=== PATIENT | female | born 1950 | race Caucasian/White ===

== ENCOUNTER → 2017-03-26 | Outpatient (CLI) | payer MEDICARE ==
[~2017-03-26] MED LIST: AMLODIPINE BESY10 MG PO; FOLIC ACID1 MG PO; LEVOXYL50 MCG PO; MAGNESIUM OXID400 MG PO; MIRTAZAPINE7.5 MG PO; NEURONTIN300 MG PO; POTASSIUM99 M1 PO; PRILOSEC20 MG PO; PROZAC20 MG PO; SIMVASTATIN20 MG PO; SULFASALAZINE500 MG; SYMBICORT 16010.2 GM INH; TEMAZEPAM15 MG PO; TOPROL XL25 MG PO
--- NOTE | 2017-03-26 19:06 | Diagnostic Imaging Report ---
PROCEDURE: SOFT TISSUE HEAD/NECK US COMPARISON: None. INDICATIONS:Localized Swelling And/Or Lump in the left supraclavicular region TECHNIQUE: Transverse and longitudinal hanson-scale sonographic images of the supraclavicular regions were obtained and supplemented with color doppler. FINDINGS: There is prominence of the musculature in the left supraclavicular region, when compared to a similar area on the right, however, no masses, free fluid or fluid collections are identified. Overlying subcutaneous tissues and skin are unremarkable. No subcutaneous edema. CONCLUSION: 1. Prominence of the musculature in the left supraclavicular region. Compared to the right, however, no discrete masses, free fluid or fluid collections are noted. No overlying edema. Hugo Serrano M.D. Dictated by: Hugo Serrano M.D. on 03/26/2017 at 19:15 Electronically approved by: Hugo Serrano M.D. on 03/26/2017 at 19:15
== END ==
LOC: RAD 14:38
PROVIDERS: ATTEND Family Medicine
DX: I82.612 Acute embolism and thrombosis of superficial veins of left upper extremity (principal); R22.1 Localized swelling, mass and lump, neck
CPT/HCPCS: 76536; 93971

== ENCOUNTER 2019-02-16 09:41 | Inpatient (IN) | payer MEDICARE ==
[~2019-02-16] VITALS: Ht 170.2 cm; Wt 99.8 kg
[2019-02-16] MEDS ORDERED: SODIUM CHLORIDE 0.9% 1000ML 1,000 ML IV STA (10:34)
--- NOTE | 2019-02-16 10:34 | NUR ---
DR. KEBEDE SPOKE WITH DR. LYN NURSE REGARDING CULTURES AND NEED FOR ANTIBIOTICS
[2019-02-16] MEDS ORDERED: MEROPENEM 1GM 100 ML IV ONE (10:45)
[2019-02-16 12:14] LABS: BASOPHILS % 0.3 % (0.0-1.0); EOSINOPHILS # (AUTO) 0.1 (0.0-0.4); EOSINOPHILS % 1.8 % (0.0-6.0); HEMOGLOBIN 13.7 g/dL (12.0-16.0); LYMPHOCYTES # (AUTO) 1.5 (1.0-3.2); MEAN CORPUSCULAR HEMOGLOBIN 29.2 pg (28-32); MEAN CORPUSCULAR HGB CONC 31.9 g/dL (31-35); MEAN CORPUSCULAR VOLUME 91.7 fL (81-99); MONOCYTES # (AUTO) 0.5 (0.2-0.8); MONOCYTES % 7.4 % (4.4-11.3); NEUTROPHILS % 69.1 % (38.7-80.0); PLATELET COUNT 304 x10e3/uL (140-360); RED BLOOD COUNT 4.69 x10e6/uL (3.6-5.1); RED CELL DISTRIBUTION WIDTH 13.2 % (11.7-14.4)
[2019-02-16] MEDS: SODIUM CHLORIDE 0.9% 1000ML 1,000 ML IV SCH ×2 (12:15→18:45)
[2019-02-16] MEDS: MEROPENEM 1GM 100 ML IV SCH ×2 (12:20→23:00)
--- NOTE | 2019-02-16 12:28 | NUR ---
consent for PICC signed and placed into chart
[2019-02-16 12:31] LABS: ALBUMIN 3.5 g/dL (3.5-5.0); ALBUMIN/GLOBULIN RATIO 1.1 (0.8-2.0); ANION GAP 13.4 mmol/L (8-16); CALCIUM 9.7 mg/dL (8.4-10.2); CREATININE, SERUM 1.29 mg/dL (0.57-1.11); POTASSIUM 4.4 mmol/L (3.5-5.1)
[2019-02-16 12:36] LABS: CLARITY,URINE CLEAR (CLEAR); COLOR,URINE YELLOW (YELLOW)
[2019-02-16 12:37] LABS: LEUKOCYTE ESTERASE ,URINE MODERATE (NEGATIVE); NITRITE,URINE NEGATIVE (NEGATIVE)
[2019-02-16 12:38] LABS: KETONES,URINE TRACE (NEGATIVE); PROTEIN,URINE DIPSTICK TRACE (NEGATIVE); URINE UROBILINOGEN 0.2 mg/dL (0.2 - 1)
[2019-02-16 12:39] LABS: BILIRUBIN,URINE SMALL (NEGATIVE)
[2019-02-16 12:41] LABS: BACTERIA,URINE MANY /HPF
[2019-02-16 12:44] LABS: WBC,URINE (MAN) >50 /HPF (0-5)
[2019-02-16 12:47] LABS: EPITHELIAL CELLS,URINE MANY /LPF; RBC,URINE 0-5 /HPF (0-5)
[2019-02-16 12:48] LABS: TRANSITIONAL EPI CELLS,URINE MANY
--- NOTE | 2019-02-16 16:42 | NUR ---
staff here to start picc
--- NOTE | 2019-02-16 17:00 | NUR ---
IR Nurse and inserted PICC line at right upper arm.
[2019-02-16] MEDS ORDERED: CRESTOR10 MG (17:59)
[2019-02-16] MEDS ORDERED: PANTOPRAZOLE SO40 MG (17:59)
[2019-02-16] MEDS ORDERED: GABAPENTIN300 MG PO (17:59)
[2019-02-16] MEDS ORDERED: METOPROLOL SUCC50 MG PO (17:59)
[2019-02-16] MEDS ORDERED: POTASSIUM CHLO10 ME1 PO (17:59)
[2019-02-16] MEDS ORDERED: PROZAC20 MG (17:59)
[2019-02-16] MEDS ORDERED: CLOPIDOGREL75 MG (17:59)
[2019-02-16] MEDS ORDERED: MAGNESIUM OXID400 MG PO (17:59)
[2019-02-16] MEDS ORDERED: LEVOTHYROXINE150 MCG (17:59)
--- NOTE | 2019-02-16 18:08 | NUR ---
ADMITTED PT TO ROOM 292, REPORTS GIVEN TO IVONNE SOLITARIO
[2019-02-16 18:36] VITALS: BP 159/74
--- NOTE | 2019-02-16 18:37 | NUR ---
Paged Dr. Peralta in regards to restarting home medications for pt. Awaiting call back.
--- NOTE | 2019-02-16 19:55 | Diagnostic Imaging Report ---
EXAMINATION: CHEST XRAY LINE PLACEMENT INDICATION: ^s/p PICC line placement ^Y COMPARISON: None FINDINGS: TUBES and LINES: Right upper extremity PICC with distal tip projected on the SVC proximal to the cavoatrial junction. LUNGS: Lungs are well inflated. Lungs are clear. There is no evidence of pneumonia or pulmonary edema. PLEURA: No pleural effusion or pneumothorax. HEART AND MEDIASTINUM: Cardiac size is mildly enlarged. There are atherosclerotic calcifications within the aorta. BONES AND SOFT TISSUES: No acute osseous lesion. Soft tissues are unremarkable. UPPER ABDOMEN: No free air under the diaphragm. IMPRESSION: Right upper extremity PICC with distal tip projected on the SVC proximal to the cavoatrial junction. Signed by: Dr. Domonique Abraham M.D. on 02/16/2019 7:52 PM
[2019-02-16 20:00] VITALS: BP 132/75
--- NOTE | 2019-02-16 20:08 | NUR ---
Received change of shift report from AM nurse. Walking rounds completed.
--- NOTE | 2019-02-16 22:51 | Consultation ---
DATE OF CONSULTATION: 02/16/2019 REASON FOR CONSULTATION: UTI with ESBL. HISTORY OF PRESENT ILLNESS: This patient who is a 69-year-old white female, well known to me from before. The patient for the last year or so has been having recurrent UTI, urgency, frequency, suprapubic discomfort. She have seen her physician. She took several courses of oral antibiotic over the last year, but recently a urine culture was done, which showed she had ESBL. The patient having urgency frequency, dysuria, suprapubic pain going to both flank. The patient denies any fever or chills. The patient was in the emergency room to be admitted and started on IV antibiotic. She said culture were done as an outpatient showed that she had resistant bacteria, but I do not see it in the chart present time. PAST MEDICAL HISTORY: Significant for hypercholesteremia, stroke, arthritis, rheumatoid arthritis, breast augmentation, and Staph aureus infection. PAST SURGICAL HISTORY: Breast augmentation. ALLERGIES: NKA. SOCIAL HISTORY: There is no smoking, drug abuse, or alcohol abuse. FAMILY HISTORY: Hypertension. REVIEW OF SYSTEMS: At the present time; HEENT: There is no headache, visual changes, hearing changes. GI: There is no nausea, no vomiting, no diarrhea. CARDIAC: There is no arrhythmia. NEURO: No seizure activity. SKIN: There are no other rashes. LABORATORY DATA: Reviewed. Her white count 7.25, hemoglobin 13.7, creatinine 1.29, sodium 139. Liver enzyme within normal limits. The patient is currently on meropenem 500 q.12. PHYSICAL EXAMINATION: GENERAL: She is currently alert, oriented, does not seem to be in acute distress. VITAL SIGNS: Stable, currently afebrile. HEENT: She is not icteric. NECK: Supple. No JVD. No lymphadenopathy. No thyromegaly. CHEST: Clear bilateral. HEART: S1, S2. No S3, S4, or murmur. ABDOMEN: Soft. Bowel sounds present. No tenderness. EXTREMITIES: No edema. SKIN: There is no rash. JOINT: There is no erythema or edema. LABORATORY DATA: Reviewed. Chart reviewed. Records available from [facility]. IMPRESSION: Urinary tract infection with multidrug resistant. Agree with meropenem 500 IV q.8, obtain PICC line. We will see about IV antibiotic. Further recommendations to follow. MD SANDHYA Soares/CLEM /[id number]
[2019-02-17] VITALS (9 sets, daily range): BP systolic 130–162; BP diastolic 68–81
[2019-02-17] MEDS: MORPHINE SULFATE 2 MG/ML SYR 1ML IV PRN ×3 (00:18→22:11)
[2019-02-17] MEDS: ONDANSETRON HCL INJ 2MG/ML 2ML 2 MG/ML VIAL IV PRN ×2 (00:19→09:50)
[2019-02-17] MEDS: SODIUM CHLORIDE 0.9% 1000ML 1,000 ML IV SCH ×3 (05:06→21:19)
[2019-02-17] MEDS: LEVOTHYROXINE SODIUM 50 MCG TAB PO SCH (05:07)
[2019-02-17 06:06] LABS: BASOPHILS % 0.3 % (0.0-1.0); EOSINOPHILS # (AUTO) 0.1 (0.0-0.4); EOSINOPHILS % 2.1 % (0.0-6.0); HEMATOCRIT 36.8 % (34.2-44.1); HEMOGLOBIN 11.8 g/dL (12.0-16.0); LYMPHOCYTES # (AUTO) 1.5 (1.0-3.2); LYMPHOCYTES % 25.1 % (18.0-39.1); MEAN CORPUSCULAR HEMOGLOBIN 29.8 pg (28-32); MEAN CORPUSCULAR HGB CONC 32.1 g/dL (31-35); MEAN CORPUSCULAR VOLUME 92.9 fL (81-99); MONOCYTES # (AUTO) 0.6 (0.2-0.8); MONOCYTES % 9.6 % (4.4-11.3); NEUTROPHILS # (AUTO) 3.7 (2.1-6.9); NEUTROPHILS % 62.7 % (38.7-80.0); PLATELET COUNT 250 x10e3/uL (140-360); RED BLOOD COUNT 3.96 x10e6/uL (3.6-5.1); RED CELL DISTRIBUTION WIDTH 13.2 % (11.7-14.4)
[2019-02-17 06:25] LABS: ALBUMIN 3.1 g/dL (3.5-5.0); ALBUMIN/GLOBULIN RATIO 1.2 (0.8-2.0); ANION GAP 11.3 mmol/L (8-16); CALCIUM 8.9 mg/dL (8.4-10.2); CREATININE, SERUM 0.99 mg/dL (0.57-1.11); POTASSIUM 4.3 mmol/L (3.5-5.1)
--- NOTE | 2019-02-17 07:21 | NUR ---
PATIENT IN BED RESTING WITH NO S/S OF DISTRESS. IV FLUID INFUSING ORDERED. BED IN LOWER POSITION, CALL LIGHT AT REACH.
[2019-02-17] MEDS: FLUOXETINE HCL 20 MG CAP PO SCH ×2 (09:00→17:23)
[2019-02-17] MEDS ORDERED: METOPROLOL SUCCINATE 25 MG TAB XL PO SCH (09:00)
[2019-02-17] MEDS ORDERED: BUDESONIDE/FORMOTEROL 160/4.5MCG INHALER INH SCH (09:00)
[2019-02-17] MEDS: PANTOPRAZOLE SOD 40 MG TABEC PO SCH (09:25)
[2019-02-17] MEDS: METOPROLOL SUCCINATE 50 MG TAB XL PO SCH (09:25)
[2019-02-17] MEDS: FOLIC ACID 1 MG TAB PO SCH (09:25)
[2019-02-17] MEDS: GABAPENTIN 300 MG CAP PO SCH ×2 (09:25→17:23)
[2019-02-17] MEDS: MAGNESIUM OXIDE 400 MG TAB PO SCH (09:25)
[2019-02-17] MEDS: CLOPIDOGREL BISULFATE 75 MG TAB PO SCH (09:25)
[2019-02-17] MEDS: POTASSIUM CHLORIDE 10MEQ EA PO SCH (09:26)
--- NOTE | 2019-02-17 10:50 | NUR ---
PATIENT AMBULATED TO THE RESTROOM AND BACK TO BED. CALL LIGHT AT REACH.
[2019-02-17] MEDS: BUDESONIDE/FORMOTEROL 160/4.5MCG INHALER INH SCH ×2 (11:38→19:48)
[2019-02-17] MEDS: MEROPENEM 1GM 100 ML IV SCH ×3 (11:45→21:20)
--- NOTE | 2019-02-17 14:06 | History and Physical ---
The patient came in with dysuria for the last 3 to 4 months. HISTORY OF PRESENTING ILLNESS: The patient is a 69-year-old lady with a history of 4 to 5 rounds of antibiotics orally, came in with dysuria. The patient's microbiology was found to have ESBL. The patient admitted for IV antibiotics, PICC line placement, and also possible discharge with home antibiotics. PAST MEDICAL HISTORY: History of stroke, history of hyperlipidemia, history of hypertension, history of depression, history of asthma, history of reflux esophagitis, history of insomnia, and history of hypertension. MEDICATIONS: She takes at home include; amlodipine 10 mg, budesonide, Symbicort 160 twice a day, fluoxetine 40 mg daily, folic acid 1 mg daily, gabapentin 300 mg 3 times a day, levothyroxine 200 mcg daily, metoprolol 50 mg ER once a day, omeprazole 20 mg daily, potassium chloride 40 mEq daily, rosuvastatin 10 mg daily, and temazepam 15 mg daily. ALLERGIES: NO DRUG ALLERGIES. PAST SURGICAL HISTORY: History of breast augmentation, otherwise negative. SOCIAL HISTORY: No EtOH. No IV drug abuse. FAMILY HISTORY: Noncontributory. REVIEW OF SYSTEMS: Negative for chest pain. No shortness of breath. No nausea, vomiting, or diarrhea. No constipation. No rectal bleeding. Positive for dysuria and pain in the abdomen. PHYSICAL EXAMINATION: VITAL SIGNS: Temperature is 96.1, pulse of 70, respirations of 18, blood pressure is 145/74, and pulse oximeter of 97% on room air. HEENT: Normocephalic, atraumatic. Pupils are reactive to light and accommodation. CVS: S1 and S2 normal. Regular rate and rhythm. ABDOMEN: Tender in the suprapubic area. BACK: Mild CVA tenderness present at right side. SKIN: Warm, normal. EXTREMITIES: No clubbing, no cyanosis, no edema. NEUROLOGIC: Alert and oriented x3. No cranial deficit. The patient walks with a cane, pain restricted. LABORATORY VALUES: White count is 5.82, hemoglobin of 11.8, and hematocrit of 36.8. Chemistries with sodium of 136, potassium 4.3, BUN is 29, creatinine of 1.29. IMAGING STUDIES: Shows catheter placement after a PICC line was done, was normal. ASSESSMENT: A 69-year-old female with history of stroke, history of hypertension, history of hyperlipidemia, comes with multiple episodes of urinary tract infection and treated, needs IV antibiotics. PICC line has been placed. Antibiotics have been started. The patient is on Merrem. We will discharge the patient with home health and/or treatment outpatient with Dr. Chilel's office. PLAN: Continue other CV medications and hypertensive medication. Also, acute kidney injury, the patient is better with IV hydration. Further recommendation per clinical course. We will continue to monitor the patient and possible discharge today if all things fall in line. MD MARINA Santiago/MODL /[id number]
--- NOTE | 2019-02-17 21:04 | Progress Note ---
DATE: 02/17/2019 SUBJECTIVE: Ms. Woods is doing better. There is no new complaint. There is no fever since admission. REVIEW OF SYSTEMS: HEENT: Negative. PULMONARY: Negative. CARDIAC: Negative. : Negative. Otherwise unremarkable. LABORATORY DATA: Her urine cultures are growing gram-negative rods. Her white count is 5.8, hemoglobin 11.8. Sodium 136. Creatinine of 0.99. OBJECTIVE: GENERAL: She is currently alert, oriented, does not seem to be in acute distress. VITAL SIGNS: Stable, currently afebrile. HEENT: She is not icteric. NECK: Supple. CHEST: Clear bilateral. HEART: S1, S2. No S3, S4, or murmurs. ABDOMEN: Soft. Bowel sounds present. No tenderness. No hepatosplenomegaly. EXTREMITIES: No edema. SKIN: No rash. IMPRESSION: Urinary tract infection, cystitis, doing well with meropenem, continue the same. PLAN: Three days of IV antibiotic and then discharge home. Follow up as an outpatient. MD SANDHYA Soares/CLEM /[id number]
[2019-02-17] MEDS: TEMAZEPAM 15 MG CAP PO SCH (21:19)
[2019-02-17] MEDS: AMLODIPINE BESYLATE 10 MG TAB PO SCH (21:19)
--- NOTE | 2019-02-17 21:22 | Diagnostic Imaging Report ---
EXAMINATION: CHEST SINGLE (PORTABLE) INDICATION: ^line placement COMPARISON: 02/16/2019 FINDINGS: AP view TUBES and LINES: Right PICC in place with tip projecting over inferior SVC. LUNGS: Lungs are well inflated. Mild central vascular congestion. No definite focal consolidation. PLEURA: No pleural effusion or pneumothorax. HEART AND MEDIASTINUM: The cardiomediastinal silhouette is unremarkable. BONES AND SOFT TISSUES: No acute osseous lesion. Soft tissues are unremarkable. UPPER ABDOMEN: No free air under the diaphragm. IMPRESSION: No acute thoracic abnormality. Right PICC in place with tip projecting over inferior SVC. Signed by: Dr. Андрей Garcia MD on 02/17/2019 9:18 PM
[2019-02-18] VITALS (9 sets, daily range): BP systolic 130–177; BP diastolic 70–97
[2019-02-18] MEDS: SODIUM CHLORIDE 0.9% 1000ML 1,000 ML IV SCH ×3 (02:02→18:40)
[2019-02-18] MEDS: LEVOTHYROXINE SODIUM 50 MCG TAB PO SCH (04:42)
[2019-02-18] MEDS: MORPHINE SULFATE 2 MG/ML SYR 1ML IV PRN ×2 (04:43→16:10)
[2019-02-18] MEDS: BUDESONIDE/FORMOTEROL 160/4.5MCG INHALER INH SCH ×2 (06:50→19:55)
--- NOTE | 2019-02-18 07:20 | NUR ---
MD IN TO SEE PATIENT, NO NEW ORDER RECEIVED. IN BED RESTING WITH CALL LIGHT AT REACH.
[2019-02-18] MEDS: FOLIC ACID 1 MG TAB PO SCH (08:36)
[2019-02-18] MEDS: CLOPIDOGREL BISULFATE 75 MG TAB PO SCH (08:37)
[2019-02-18] MEDS: FLUOXETINE HCL 20 MG CAP PO SCH ×2 (08:37→17:23)
[2019-02-18] MEDS: GABAPENTIN 300 MG CAP PO SCH ×2 (08:37→17:23)
[2019-02-18] MEDS: PANTOPRAZOLE SOD 40 MG TABEC PO SCH (08:37)
[2019-02-18] MEDS: MAGNESIUM OXIDE 400 MG TAB PO SCH (08:37)
[2019-02-18] MEDS: POTASSIUM CHLORIDE 10MEQ EA PO SCH (08:37)
[2019-02-18] MEDS: METOPROLOL SUCCINATE 50 MG TAB XL PO SCH (08:39)
--- NOTE | 2019-02-18 10:45 | Progress Note ---
DATE: 02/17/2019 SUBJECTIVE: This patient came in with multiple episodes of urinary tract infections with dysuria. The last culture grew ESBL. The patient has had five episodes of ESBL. The patient was sent to the hospital for IV antibiotics and for relief of symptoms of UTI. Currently, the patient had a PICC line put in yesterday, but the PICC line at the area of insertion got erythematous and tender and the PICC line was removed. Tip has been cultured and the patient is kept in the hospital for ongoing treatments. The patient at this time has peripheral line and Merrem is ongoing. The patient also has ESBL growth again and sensitive to Merrem. ID is on case. The patient will require continuum of care in lieu of infected PICC line and need of peripheral IV for IV antibiotics. OBJECTIVE: VITAL SIGNS: Temperature is 96.0, pulse is 72, respirations of 18, blood pressure is 130/87, and pulse oximetry of 96%. HEENT: Normocephalic and atraumatic. Pupils are reactive to light and accommodation. CVS: S1 and S2 normal. Regular rate and rhythm. ABDOMEN: Nontender nondistended. EXTREMITIES: Right-sided upper extremity with slight erythema and tenderness and also with warmth in the right upper extremity at the PICC line insertion site. Extremities otherwise no edema. LABORATORY VALUES: White count is 5.82, hemoglobin of 11.8, and hematocrit of 36.8. Chemistries; sodium 136, potassium 4.3, BUN of 27, and creatinine of 0.99. ASSESSMENT: Ms. Catalina Woods is a 69-year-old female with: 1. Failed outpatient treatment of ESBL x5. 2. Failed peripherally inserted central catheter line, removal of peripherally inserted central catheter line with culture of tip and also catheter area. 3. History of multiple comorbidities including history of stroke, history of hypertension, history of deep vein thrombosis, history of hyperlipidemia, history of being on anticoagulation, and asthma. PLAN: Continue with Merrem at this time with a peripheral line. Consult with Dr. Chilel on board. Continue with anticoagulation. Further recommendation per clinical course. We will continue to monitor the patient. The patient has baseline chronic kidney injury and also acute kidney injury, which has been better after repletion of fluids. MD HESHAM SantiagoJ/MODL /[id number]
--- NOTE | 2019-02-18 11:07 | NUR ---
VENOUS DOPPLER IN PROGRESS AT BED SIDE. CALL LIGHT AT REACH.
[2019-02-18] MEDS: MEROPENEM 1GM 100 ML IV SCH ×2 (11:30→23:26)
[2019-02-18] MEDS: ONDANSETRON HCL 4 MG ORAL DISINTEGRATING TAB PO PRN (16:10)
--- NOTE | 2019-02-18 16:18 | NUR ---
PATIENT C/O PAIN, MEDICATED ORDERED. WILL CLOSELY MONITOR.
--- NOTE | 2019-02-18 19:00 | NUR ---
RECEIVED PATIENT IN BEDSIDE REPORT. PATIENT RESTING IN BED AT THIS TIME. NO PAIN REPORTED. NO S&S OF DISTRESS NOTED. BED LOCKED IN LOWEST POSITION, SIDE RAILS UPX2, CALL LIGHT IN REACH.
[2019-02-18] MEDS: AMLODIPINE BESYLATE 10 MG TAB PO SCH (21:01)
[2019-02-18] MEDS: TEMAZEPAM 15 MG CAP PO SCH (21:01)
[2019-02-19] MEDS: MORPHINE SULFATE 2 MG/ML SYR 1ML IV PRN ×4 (02:58→19:44)
[2019-02-19] MEDS: SODIUM CHLORIDE 0.9% 1000ML 1,000 ML IV SCH ×3 (02:58→23:30)
[2019-02-19] MEDS: ONDANSETRON HCL 4 MG ORAL DISINTEGRATING TAB PO PRN ×4 (02:58→19:45)
[2019-02-19 04:00] VITALS: BP 154/74
[2019-02-19] MEDS: LEVOTHYROXINE SODIUM 50 MCG TAB PO SCH (06:49)
[2019-02-19] MEDS: BUDESONIDE/FORMOTEROL 160/4.5MCG INHALER INH SCH ×2 (07:30→19:00)
[2019-02-19] MEDS: PANTOPRAZOLE SOD 40 MG TABEC PO SCH (07:46)
[2019-02-19 08:00] VITALS: BP 137/81
[2019-02-19] MEDS: POTASSIUM CHLORIDE 10MEQ EA PO SCH (08:56)
[2019-02-19] MEDS: MAGNESIUM OXIDE 400 MG TAB PO SCH (08:56)
[2019-02-19] MEDS: FOLIC ACID 1 MG TAB PO SCH (08:56)
[2019-02-19] MEDS: GABAPENTIN 300 MG CAP PO SCH ×2 (08:56→17:15)
[2019-02-19] MEDS: METOPROLOL SUCCINATE 50 MG TAB XL PO SCH (08:57)
[2019-02-19] MEDS: FLUOXETINE HCL 20 MG CAP PO SCH ×2 (08:57→17:15)
[2019-02-19] MEDS: CLOPIDOGREL BISULFATE 75 MG TAB PO SCH (08:57)
--- NOTE | 2019-02-19 09:16 | Progress Note ---
DATE: 02/19/2019 SUBJECTIVE: The patient is a 69-year-old female, who came in with a multiple episodes of urinary tract infection. The patient was initially put into the hospital for just a PICC line and need of Merrem 1 g q.8 hours because she has ESBL and no p.o. antibiotics to be sensitive to it, but eventually the patient did develop complications of PICC line; tip has been cultured. The patient is still getting Merrem through peripheral line. ID consult has been done. The plan would be to give her three days of antibiotic and sent home on p.o. antibiotics and bacteriostatic drugs. The patient's microbiology did grow ESBL, Klebsiella pneumoniae, and the patient is sensitive to Merrem. OBJECTIVE: VITAL SIGNS: Temperature is 96.6, pulse of 70, respirations of 20, blood pressure is 154/74, and pulse oximetry of 97%. HEENT: Normocephalic, atraumatic. Pupils are reactive to light and accommodation. CVS: S1 and S2, regular. ABDOMEN: Nontender, nondistended. EXTREMITIES: No clubbing, no cyanosis, no edema. PICC line area has receded in erythema, tenderness, and warmth. LABORATORY VALUES: There were none done today, except for microbiology. IMAGING STUDIES: Extremity study did not show any clot. The patient's catheter tip culture is still pending. ASSESSMENT: A 69-year-old female with: 1. Failed outpatient of extended spectrum beta-lactamase x5. 2. Failed peripherally inserted catheter line with removal secondary to possible local reaction versus systemic reaction. 3. History of multiple comorbidities including stroke, history of hypertension, history of deep vein thrombosis, history of hyperlipidemia, history of chronic use of anticoagulation, and history of asthma. PLAN: 1. Continue with Merrem for two more days on the peripheral line, Dr. Chilel is on consult. 2. The patient will need ongoing therapy for at least three days, which will result in discharge tomorrow. 3. Further recommendation per clinical course. We will continue to monitor the patient. The patient will be discharged from the hospital on ID recommendation of p.o. antibiotics and bacteriostatic drugs. 4. Further recommendation per clinical course. We will continue her ongoing other medications and do laboratory values tomorrow. MD MARINA Santiago/MODL /[id number]
[2019-02-19] MEDS: MEROPENEM 1GM 100 ML IV SCH ×2 (11:25→23:00)
[2019-02-19 12:00] VITALS: BP 137/74
--- OUTSIDE RECORDS SUMMARY | 2019-02-19 13:12 | XMS REPORT ---
Author Author [facility] Address Unknown Phone Unavailable Care Team Providers Care Rod Hanger Name Role Phone LOIDA Katarzyna SOUZA Unavailable Unavailable HARJEET PRADO Unavailable Unavailable FRANCES KINSEY Unavailable Unavailable ELLIOT CHRISTENSEN Unavailable Unavailable Problems This patient has no known problems. Allergies, Adverse Reactions, Alerts This patient has no known allergies or adverse reactions. Medications This patient has no known medications. Results Test Description Test Time Test Comments Text Results Atomic Results Result Comments CHEST SINGLE (PORTABLE) 2019-02-17 21:17:00 [place] [address] Patient Name: BENITO BURNS MR #: [id number] : 1950 Age/Sex: 69/F Req #: [id number] Adm Physician: LIBYB MARISCAL MD Ordered by: LIBBY MARISCAL MD Report #: [id number] Location: [facility]/SURG3 Room/Bed: [facility] Procedure: [id number] DX/CHEST SINGLE (PORTABLE) Exam Date: Exam Time: REPORT STATUS: Signed EXAMINATION: CHEST SINGLE (PORTABLE) INDICATION: line placement COMPARISON: 02/16/2019 FINDINGS: AP view TUBES and LINES: Right PICC in place with tip projecting over inferior SVC. LUNGS: Lungs are well inflated. Mild central vascular congestion. No definite focal consolidation. PLEURA: No pleural effusion or pneumothorax. HEART AND MEDIASTINUM: The cardiomediastinal silhouette is unremarkable. BONES AND SOFT TISSUES: No acute osseous lesion. Soft tissues are unremarkable. UPPER ABDOMEN: No free air under the diaphragm. IMPRESSION: No acute thoracic abnormality. Right PICC in place with tip projecting over inferior SVC. Signed by: Dr. Андрей Brooks MD on 02/17/2019 9:18 PM Dictated By: АНДРЕЙ BROOKS MD 17 Transcribed By: CATHERINE on 02/17/192117 COPY TO: LIBBY MARISCAL MD CHEST XRAY LINE PLACEMENT 2019-02-16 19:51:00 [place] [address] Patient Name: BENITO BURNS MR #: [id number] : 1950 Age/Sex: 69/F Req #: [id number] Adm Physician: LIBBY MARISCAL MD Ordered by: CHLOE KEBEDE MD, MD Report #: [id number] Location: [facility] Room/Bed: [facility] Procedure: [id number] DX/CHEST XRAY LINE PLACEMENT Exam Date: Exam Time: REPORT STATUS: Signed EXAMINATION: CHEST XRAY LINE PLACEMENT INDICATION: s/p PICC line placement Y COMPARISON: None FINDINGS: TUBES and LINES: Right upper extremity PICC with distal tip projected on the SVC proximal to the cavoatrial junction. LUNGS: Lungs are well inflated. Lungs are clear. There is no evidence of pneumonia or pulmonary edema. PLEURA: No pleural effusion or pneumothorax. HEART AND MEDIASTINUM: Cardiac size is mildly enlarged. There are atherosclerotic calcifications within the aorta. BONES AND SOFT TISSUES: No acute osseous lesion. Soft tissues are unremarkable. UPPER ABDOMEN: No free air under the diaphragm. IMPRESSION: Right upper extremity PICC with distal tip projected on the SVC proximal to the cavoatrial junction. Signed by: Dr. Domonique Headley M.D. on 02/16/2019 7:52 PM Dictated By: BRIONNA HEADLEY MD, MD 51 Transcribed By: CATHERINE on 02/16/191951 COPY TO: CHLOE KEBEDE AF[employer] CULTURE + SMEAR 2016-11-07 19:43:00 CULTURE (BEAKER) (test wdwx=8593) No acid-fast bacilli isolated in 42 days AFB SMEAR (BEAKER) (test pkpx=299) No acid fast bacilli seen AFB CULTURE + [id number] 19:43:00* Test Item Value Reference Range Comments CULTURE (BEAKER) (test higl=4286) No acid-fast bacilli isolated in 42 days AFB SMEAR (BEAKER) (test cbni=585) No acid fast bacilli seen FUNGUS CULTURE + [id number] 08:33:00* Test Item Value Reference Range Comments CULTURE (BEAKER) (test jhtt=9633) No fungus isolated in 28 days FUNGUS SMEAR (BEAKER) (test mdqp=1691) No fungi seen FUNGUS CULTURE + [id number] 08:33:00* Test Item Value Reference Range Comments CULTURE (BEAKER) (test smvt=2711) No fungus isolated in 28 days FUNGUS SMEAR (BEAKER) (test dogn=7659) No fungi seen ANAEROBIC [id number] 12:49:00* Test Item Value Reference Range Comments CULTURE (BEAKER) (test pevy=9811) No anaerobes isolated ANAEROBIC [id number] 20:13:00* Test Item Value Reference Range Comments CULTURE (BEAKER) (test noyy=7809) No anaerobes isolated SURGICALLY OBTAINED CULTURE + GRAM [id number] 09:22:00* Test Item Value Reference Range Comments CULTURE (BEAKER) (test sbgn=0016) No growth GRAM STAIN RESULT (BEAKER) (test ecke=2627) <1+ WBCs GRAM STAIN RESULT (BEAKER) (test pnce=59548) No organisms seen SURGICALLY OBTAINED CULTURE + GRAM [id number] 09:21:00* Test Item Value Reference Range Comments CULTURE (BEAKER) (test kqll=2441) No growth GRAM STAIN RESULT (BEAKER) (test dsxu=8164) <1+ WBCs GRAM STAIN RESULT (BEAKER) (test uwop=24353) No organisms seen TISSUE [id number] 09:04:00Surgical Pathology Report Case: [id number] Authorizing Provider: Mahamed Kinsey Collected: 09/18/2016 181Lisseth Lauren MD Ordering Location: [facility] Received: 09/19/2016 0814 SERVICES Pathologist: Richmond Avitia MD Specimen: Explant HIP, RIGHT, RIGHT HIP EXPLANT, REMOVAL: - EXPLANT MATERIAL IDENTIFIED (GROSS DIAGNOSIS) [facility]/[id number] of right hipExplant The specimen is received in a fluidless container labeled with the patient's information and labeled "explant" and consists of an acetabular cup and lining measuring 4 x 4 x 2 cm and acetabular cup and acetabular and femoral bulb measuring 2 x 2 x 2 cm. The serial number for the acetabular cup is "[id number]", and for the femoral bulb "[id number]". The specimen is submitted for gross identification. CG/ew SPIN/CONCENTRATION [id number] 15:47:00* Test Item Value Reference Range Comments CONCENTRATION CHARGED (BEAKER) (test rfvb=9534) Done SPIN/CONCENTRATION [id number] 15:47:00* Test Item Value Reference Range Comments CONCENTRATION CHARGED (BEAKER) (test lxbb=3994) Done BASIC METABOLIC [id number] 06:20:00* Test Item Value Reference Range Comments SODIUM (BEAKER) (test ibzr=979) 139 meq/L 136-145 POTASSIUM (BEAKER) (test zjhr=556) 4.6 meq/L 3.5-5.1 CHLORIDE (BEAKER) (test zjmb=686) 102 meq/L 98-107 CO2 (BEAKER) (test pgai=440) 31 meq/L 22-29 BLOOD UREA NITROGEN (BEAKER) (test ufhz=809) 14 mg/dL 7-21 CREATININE (BEAKER) (test lwyk=158) 0.72 mg/dL 0.57-1.25 GLUCOSE RANDOM (BEAKER) (test cttt=469) 113 mg/dL 70-105 CALCIUM (BEAKER) (test yebr=138) 8.1 mg/dL 8.4-10.2 EGFR (BEAKER) (test thqc=2882) 81 mL/min/1.73 sq m ESTIMATED GFR IS NOT ACCURATE CREATININE CLEARANCE IN PREDICTING GLOMERULAR FILTRATION RATE. ESTIMATED GFR IS NOT APPLICABLE FOR DIALYSIS PATIENTS. CBC W/PLT COUNT & AUTO [id number] 06:17:00* Test Item Value Reference Range Comments WHITE BLOOD CELL COUNT (BEAKER) (test gvcq=670) 6.0 K/ L 4.0-10.0 RED BLOOD CELL COUNT (BEAKER) (test hxfq=156) 3.81 M/ L 4.00-5.00 HEMOGLOBIN (BEAKER) (test ptoc=206) 8.8 GM/DL 12.0-15.0 HEMATOCRIT (BEAKER) (test jvef=036) 28.7 % 36.0-45.0 MEAN CORPUSCULAR VOLUME (BEAKER) (test oizn=843) 75.3 fL 82.0-99.0 MEAN CORPUSCULAR HEMOGLOBIN (BEAKER) (test qgog=721) 23.1 pg 27.0-33.0 MEAN CORPUSCULAR HEMOGLOBIN CONC (BEAKER) (test lrwb=607) 30.6 GM/DL 32.0-36.0 RED CELL DISTRIBUTION WIDTH (BEAKER) (test rwrc=294) 18.7 % 10.3-14.2 PLATELET COUNT (BEAKER) (test rago=671) 294 K/CU MM 150-430 MEAN PLATELET VOLUME (BEAKER) (test kzln=849) 8.5 fL 6.5-10.5 NUCLEATED RED BLOOD CELLS (BEAKER) (test cttd=542) 0 /100 WBC 0-0 NEUTROPHILS RELATIVE PERCENT (BEAKER) (test criz=654) 73 % LYMPHOCYTES RELATIVE PERCENT (BEAKER) (test yoru=250) 18 % MONOCYTES RELATIVE PERCENT (BEAKER) (test ftgm=132) 7 % EOSINOPHILS RELATIVE PERCENT (BEAKER) (test ntro=452) 2 % BASOPHILS RELATIVE PERCENT (BEAKER) (test celf=520) 0 % NEUTROPHILS ABSOLUTE COUNT (BEAKER) (test vswy=345) 4.40 K/ L 1.80-8.00 LYMPHOCYTES ABSOLUTE COUNT (BEAKER) (test sjds=315) 1.06 K/ L 1.48-4.50 MONOCYTES ABSOLUTE COUNT (BEAKER) (test knai=899) 0.39 K/ L 0.00-1.30 EOSINOPHILS ABSOLUTE COUNT (BEAKER) (test paem=286) 0.14 K/ L 0.00-0.50 BASOPHILS ABSOLUTE COUNT (BEAKER) (test oapp=410) 0.03 K/ L 0.00-0.20 0.00CBC W/PLT COUNT & AUTO [id number] 15:01:00* Test Item Value Reference Range Comments WHITE BLOOD CELL COUNT (BEAKER) (test cggy=569) 4.7 K/ L 4.0-10.0 RED BLOOD CELL COUNT (BEAKER) (test aubo=274) 3.66 M/ L 4.00-5.00 HEMOGLOBIN (BEAKER) (test zrww=276) 8.2 GM/DL 12.0-15.0 HEMATOCRIT (BEAKER) (test xsie=138) 26.9 % 36.0-45.0 MEAN CORPUSCULAR VOLUME (BEAKER) (test nxgn=254) 73.5 fL 82.0-99.0 MEAN CORPUSCULAR HEMOGLOBIN (BEAKER) (test ttdi=622) 22.4 pg 27.0-33.0 MEAN CORPUSCULAR HEMOGLOBIN CONC (BEAKER) (test gmhp=259) 30.4 GM/DL 32.0-36.0 RED CELL DISTRIBUTION WIDTH (BEAKER) (test nrgt=668) 17.1 % 10.3-14.2 PLATELET COUNT (BEAKER) (test bmin=874) 377 K/CU MM 150-430 MEAN PLATELET VOLUME (BEAKER) (test dcrz=539) 7.7 fL 6.5-10.5 NUCLEATED RED BLOOD CELLS (BEAKER) (test ynzq=584) 0 /100 WBC 0-0 NEUTROPHILS RELATIVE PERCENT (BEAKER) (test cdjb=900) 60 % LYMPHOCYTES RELATIVE PERCENT (BEAKER) (test xdyo=393) 27 % MONOCYTES RELATIVE PERCENT (BEAKER) (test cvyu=345) 9 % EOSINOPHILS RELATIVE PERCENT (BEAKER) (test gdes=982) 3 % BASOPHILS RELATIVE PERCENT (BEAKER) (test empc=208) 1 % NEUTROPHILS ABSOLUTE COUNT (BEAKER) (test zbbr=429) 2.84 K/ L 1.80-8.00 LYMPHOCYTES ABSOLUTE COUNT (BEAKER) (test zlwm=677) 1.30 K/ L 1.48-4.50 MONOCYTES ABSOLUTE COUNT (BEAKER) (test rpza=495) 0.41 K/ L 0.00-1.30 EOSINOPHILS ABSOLUTE COUNT (BEAKER) (test rkeb=321) 0.16 K/ L 0.00-0.50 BASOPHILS ABSOLUTE COUNT (BEAKER) (test rvlb=367) 0.04 K/ L 0.00-0.20 0.00AFB CULTURE + [id number] 12:59:00* Test Item Value Reference Range Comments CULTURE (BEAKER) (test tzec=9822) No acid-fast bacilli isolated in 42 days AFB SMEAR (BEAKER) (test okyx=361) No acid fast bacilli seen AFB CULTURE + [id number] 12:59:00* Test Item Value Reference Range Comments CULTURE (BEAKER) (test zuht=4870) No acid-fast bacilli isolated in 42 days AFB SMEAR (BEAKER) (test ofch=321) No acid fast bacilli seen AFB CULTURE + [id number] 12:59:00* Test Item Value Reference Range Comments CULTURE (BEAKER) (test shnj=1961) No acid-fast bacilli isolated in 42 days AFB SMEAR (BEAKER) (test vcrm=128) No acid fast bacilli seen FUNGUS CULTURE + [id number] 07:53:00* Test Item Value Reference Range Comments CULTURE (BEAKER) (test okep=5176) No fungus isolated in 28 days FUNGUS SMEAR (BEAKER) (test llzm=7625) No fungi seen FUNGUS CULTURE + [id number] 07:53:00* Test Item Value Reference Range Comments CULTURE (BEAKER) (test posg=6578) No fungus isolated in 28 days FUNGUS SMEAR (BEAKER) (test xity=7963) No fungi seen FUNGUS CULTURE + [id number] 07:53:00* Test Item Value Reference Range Comments CULTURE (BEAKER) (test eqfi=3622) No fungus isolated in 28 days FUNGUS SMEAR (BEAKER) (test yzzp=8643) No fungi seen CBC W/PLT COUNT & AUTO [id number] 14:31:00* Test Item Value Reference Range Comments WHITE BLOOD CELL COUNT (BEAKER) (test dprj=463) 6.1 K/ L 4.0-10.0 RED BLOOD CELL COUNT (BEAKER) (test llfq=466) 3.52 M/ L 4.00-5.00 HEMOGLOBIN (BEAKER) (test vrhd=861) 8.0 GM/DL 12.0-15.0 HEMATOCRIT (BEAKER) (test uygv=574) 26.6 % 36.0-45.0 MEAN CORPUSCULAR VOLUME (BEAKER) (test vyax=576) 75.5 fL 82.0-99.0 MEAN CORPUSCULAR HEMOGLOBIN (BEAKER) (test ycqo=693) 22.8 pg 27.0-33.0 MEAN CORPUSCULAR HEMOGLOBIN CONC (BEAKER) (test odpd=717) 30.2 GM/DL 32.0-36.0 RED CELL DISTRIBUTION WIDTH (BEAKER) (test xkba=174) 17.1 % 10.3-14.2 PLATELET COUNT (BEAKER) (test qaap=747) 422 K/CU MM 150-430 MEAN PLATELET VOLUME (BEAKER) (test qhsb=506) 7.3 fL 6.5-10.5 NUCLEATED RED BLOOD CELLS (BEAKER) (test ohxw=089) 0 /100 WBC 0-0 NEUTROPHILS RELATIVE PERCENT (BEAKER) (test qtbx=464) 68 % LYMPHOCYTES RELATIVE PERCENT (BEAKER) (test rknv=277) 19 % MONOCYTES RELATIVE PERCENT (BEAKER) (test vqdv=485) 9 % EOSINOPHILS RELATIVE PERCENT (BEAKER) (test rcjv=072) 4 % BASOPHILS RELATIVE PERCENT (BEAKER) (test okxe=446) 0 % NEUTROPHILS ABSOLUTE COUNT (BEAKER) (test tcnu=080) 4.12 K/ L 1.80-8.00 LYMPHOCYTES ABSOLUTE COUNT (BEAKER) (test azda=615) 1.18 K/ L 1.48-4.50 MONOCYTES ABSOLUTE COUNT (BEAKER) (test ebgp=803) 0.53 K/ L 0.00-1.30 EOSINOPHILS ABSOLUTE COUNT (BEAKER) (test abus=582) 0.25 K/ L 0.00-0.50 BASOPHILS ABSOLUTE COUNT (BEAKER) (test niei=135) 0.02 K/ L 0.00-0.20 0.00BASIC METABOLIC [id number] 14:25:00* Test Item Value Reference Range Comments SODIUM (BEAKER) (test uykl=859) 135 meq/L 136-145 POTASSIUM (BEAKER) (test vvkt=197) 4.7 meq/L 3.5-5.1 Specimen slightly hemolyzed CHLORIDE (BEAKER) (test kmgp=858) 99 meq/L 98-107 CO2 (BEAKER) (test kwah=996) 26 meq/L 22-29 BLOOD UREA NITROGEN (BEAKER) (test dwba=481) 14 mg/dL 7-21 CREATININE (BEAKER) (test otvn=343) 0.76 mg/dL 0.57-1.25 Specimen slightly hemolyzed GLUCOSE RANDOM (BEAKER) (test xfsu=778) 98 mg/dL 70-105 CALCIUM (BEAKER) (test xanj=709) 8.6 mg/dL 8.4-10.2 EGFR (BEAKER) (test ozus=7929) 76 mL/min/1.73 sq m ESTIMATED GFR IS NOT ACCURATE CREATININE CLEARANCE IN PREDICTING GLOMERULAR FILTRATION RATE. ESTIMATED GFR IS NOT APPLICABLE FOR DIALYSIS PATIENTS. PT/[id number] 14:25:00* Test Item Value Reference Range Comments PROTIME (BEAKER) (test pzwx=429) 13.3 seconds 11.7-14.7 INR (BEAKER) (test moed=675) 1.0 <=5.9 PARTIAL THROMBOPLASTIN TIME (BEAKER) (test sebn=904) 32.6 seconds 22.5-36.0 RECOMMENDED COUMADIN/WARFARIN INR THERAPY RANGESSTANDARD DOSE: 2.0 - 3.0 Inclu nuvia: PROPHYLAXIS for venous thrombosis, systemic embolization; TREATMENT for desean ous thrombosis and/or pulmonary embolus.HIGH RISK: Target INR is 2.5-3.5 for pat ients with mechanical heart valves.ANAEROBIC [id number] 05:50:00* Test Item Value Reference Range Comments CULTURE (BEAKER) (test pgeb=0933) No anaerobes isolated ANAEROBIC [id number] 05:50:00* Test Item Value Reference Range Comments CULTURE (BEAKER) (test mbpz=2576) No anaerobes isolated ANAEROBIC [id number] 05:50:00* Test Item Value Reference Range Comments CULTURE (BEAKER) (test rgab=0036) No anaerobes isolated SURGICALLY OBTAINED CULTURE + GRAM [id number] 15:21:00* Test Item Value Reference Range Comments CULTURE (BEAKER) (test ugrb=4853) No growth GRAM STAIN RESULT (BEAKER) (test mico=9876) No WBCs GRAM STAIN RESULT (BEAKER) (test dnwn=81458) No organisms seen SURGICALLY OBTAINED CULTURE + GRAM [id number] 15:21:00* Test Item Value Reference Range Comments CULTURE (BEAKER) (test rgnt=1535) No growth GRAM STAIN RESULT (BEAKER) (test ojgs=0239) No WBCs GRAM STAIN RESULT (BEAKER) (test vqdy=23038) No organisms seen BODY FLUID CULTURE + GRAM [id number] 15:20:00* Test Item Value Reference Range Comments CULTURE (BEAKER) (test fehg=3567) No growth GRAM STAIN RESULT (BEAKER) (test gezq=6561) <1+ WBCs GRAM STAIN RESULT (BEAKER) (test rtgc=99801) No organisms seen HEMOGLOBIN AND [id number] 07:33:00* Test Item Value Reference Range Comments HEMOGLOBIN (BEAKER) (test yvck=275) 7.4 GM/DL 12.0-15.0 HEMATOCRIT (BEAKER) (test mzmh=353) 24.0 % 36.0-45.0 HGB/HCT (H&H) - STAT [id number] 11:46:00* Test Item Value Reference Range Comments HEMOGLOBIN (BEAKER) (test shwe=649) 10.2 GM/DL 12.0-15.0 HEMATOCRIT (BEAKER) (test imgk=119) 30.0 % 36.0-45.0 [id number] 15:07:00* Test Item Value Reference Range Comments HEMOGLOBIN (BEAKER) (test duvf=041) 11.8 GM/DL 12.0-15.0 PLATELET [id number] 15:07:00* Test Item Value Reference Range Comments PLATELET COUNT (BEAKER) (test ybot=725) 319 K/CU MM 150-430 [id number] 15:04:00* Test Item Value Reference Range Comments SODIUM (BEAKER) (test sign=151) 137 meq/L 136-145 POTASSIUM (BEAKER) (test fnyy=387) 4.1 meq/L 3.5-5.1 CHLORIDE (BEAKER) (test vxpr=555) 100 meq/L 98-107 CO2 (BEAKER) (test vbgq=171) 29 meq/L 22-29 BUN AND [id number] 15:04:00* Test Item Value Reference Range Comments BLOOD UREA NITROGEN (BEAKER) (test qhdb=911) 20 mg/dL 7-21 CREATININE (BEAKER) (test ghzg=333) 0.88 mg/dL 0.57-1.25 EGFR (BEAKER) (test wgky=3078) 64 mL/min/1.73 sq m ESTIMATED GFR IS NOT ACCURATE CREATININE CLEARANCE IN PREDICTING GLOMERULAR FILTRATION RATE. ESTIMATED GFR IS NOT APPLICABLE FOR DIALYSIS PATIENTS. US SOFT TISSUE NECK/HEAD [place] [address] Patient Name: BENITO BURNS MR #: [id number] : 1950 Age/Sex: 67/F Req #: [id number] Adm Physician: Ordered by: HARJEET PRADO MD Report #: [id number] Location: [facility] Room/Bed: Procedure: [id number] US/US SOFT TISSUE N LINDA/HEAD Exam Date: 03/26/17 Exam Time: 1535 R EPORT STATUS: Signed PROCEDURE: SOFT TISSUE HEAD/NECK US COMPARISON: None. INDICATIONS: Localized Swelling And/Or Lump in the left supraclavicular r egion TECHNIQUE: Transverse and longitudinal hanson-scale sonographic images of the supraclavicular regions were obtained and supplemented with color dopp ler. FINDINGS: There is prominence of the musculature in the left aguayo praclavicular region, when compared to a similar area on the right, however, no masses, free fluid or fluid collections are identified. Overlying subcut aneous tissues and skin are unremarkable. No subcutaneous edema. CONCLU BAKARI: 1. Prominence of the musculature in the left supraclavicular region. Compared to the right, however, no discrete masses, free fluid or fluid co llections are noted. No overlying edema. Hugo Rick M.D. Dictated by: Hugo Rick M.D. on 03/26/2017 at 19:15 Electronic ally approved by: Hugo Rick M.D. on 03/26/2017 at 19:15 Dictated By: HUGO RICK MD 14 Transcribed By: ROMMEL on 03/26/171914 COPY TO: HARJEET JONES MD
[2019-02-19 16:00] VITALS: BP 145/84
[2019-02-19 19:15] VITALS: BP 192/81
--- NOTE | 2019-02-19 19:15 | NUR ---
patient awake, alert, sitting up in bed eating tacos brought in by family. no c/o pain noted. ivf continue to infuse without difficulty. pm assessment complete. patient instructed to call for assistance when needed.
--- NOTE | 2019-02-19 19:44 | NUR ---
patient medicated with morphine 2mg ivp for generalized pain 6/10 at this time.
[2019-02-19 20:00] VITALS: BP 192/81
[2019-02-19] MEDS: AMLODIPINE BESYLATE 10 MG TAB PO SCH (20:27)
[2019-02-19] MEDS: TEMAZEPAM 15 MG CAP PO SCH (20:27)
[2019-02-20] VITALS: BP 174/86
[2019-02-20] MEDS: MORPHINE SULFATE 2 MG/ML SYR 1ML IV PRN (03:20)
--- NOTE | 2019-02-20 03:20 | NUR ---
patient oob to shower with assistance. patient medicated for c/o generalized pain 08/10 after her shower. ivf continue to infuse.
[2019-02-20 04:00] VITALS: BP 170/93
[2019-02-20] MEDS: LEVOTHYROXINE SODIUM 50 MCG TAB PO SCH (05:28)
[2019-02-20] MEDS ORDERED: CLONIDINE HCL 0.1 MG TAB PO PRN (05:45)
[2019-02-20 06:17] LABS: BASOPHILS % 0.3 % (0.0-1.0); EOSINOPHILS # (AUTO) 0.1 (0.0-0.4); EOSINOPHILS % 2.1 % (0.0-6.0); HEMATOCRIT 39.3 % (34.2-44.1); HEMOGLOBIN 12.5 g/dL (12.0-16.0); LYMPHOCYTES # (AUTO) 1.5 (1.0-3.2); LYMPHOCYTES % 23.9 % (18.0-39.1); MEAN CORPUSCULAR HGB CONC 31.8 g/dL (31-35); MEAN CORPUSCULAR VOLUME 91.2 fL (81-99); MONOCYTES # (AUTO) 0.4 (0.2-0.8); MONOCYTES % 7.2 % (4.4-11.3); NEUTROPHILS # (AUTO) 4.1 (2.1-6.9); PLATELET COUNT 258 x10e3/uL (140-360); RED BLOOD COUNT 4.31 x10e6/uL (3.6-5.1); RED CELL DISTRIBUTION WIDTH 13.1 % (11.7-14.4)
[2019-02-20 06:32] LABS: ANION GAP 12.4 mmol/L (8-16); BLOOD UREA NITROGEN 14 mg/dL (7-26); BUN/CREATININE RATIO 17 (6-25); CALCIUM 8.9 mg/dL (8.4-10.2); CARBON DIOXIDE 27 mmol/L (22-29); CHLORIDE 103 mmol/L (98-107); CREATININE, SERUM 0.82 mg/dL (0.57-1.11); EST GLOMERULAR FILTRATION RATE > 60 ML/MIN (60-); GLUCOSE 160 mg/dL (74-118); POTASSIUM 3.4 mmol/L (3.5-5.1); SODIUM 139 mmol/L (136-145)
[2019-02-20] MEDS: BUDESONIDE/FORMOTEROL 160/4.5MCG INHALER INH SCH (07:00)
[2019-02-20 07:41] VITALS: BP 140/86
[2019-02-20 08:00] VITALS: BP 160/88
[2019-02-20] MEDS: FOLIC ACID 1 MG TAB PO SCH (09:03)
[2019-02-20] MEDS: FLUOXETINE HCL 20 MG CAP PO SCH (09:04)
[2019-02-20] MEDS: MAGNESIUM OXIDE 400 MG TAB PO SCH (09:04)
[2019-02-20] MEDS: POTASSIUM CHLORIDE 10MEQ EA PO SCH (09:04)
[2019-02-20] MEDS: GABAPENTIN 300 MG CAP PO SCH (09:04)
[2019-02-20] MEDS: PANTOPRAZOLE SOD 40 MG TABEC PO SCH (09:04)
[2019-02-20] MEDS: CLOPIDOGREL BISULFATE 75 MG TAB PO SCH (09:04)
[2019-02-20] MEDS: METOPROLOL SUCCINATE 50 MG TAB XL PO SCH (09:05)
--- NOTE | 2019-02-20 10:00 | NUR ---
Pt discharged at this time. Pt verbalized understanding of all discharge instructions and follow up appts. 0 s/s of acute distress noted.
--- NOTE | 2019-04-04 23:24 | Discharge Summary ---
HISTORY: The patient came in with failed outpatient treatment of urinary tract infection. The patient had ESBL. The patient was put on Merrem. Peripheral lines were done. The patient also consulted with Dr. Chilel. A total of 6 days of antibiotics was given to the patient. The patient was doing better and once the patient's ESBL had resolved and the patient was feeling better, the patient was discharged home. FINAL DIAGNOSIS: 1. History of acute coronary syndrome. 2. History of stroke. 3. History of hypertension. 4. History of deep vein thrombosis. 5. History of hyperlipidemia. 6. History of chronic use of anticoagulation. 7. History of asthma. For further information, look into the chart. For medicines on discharge, look into the medical reconciliation sheet. Again, the patient did grow ESBL and Klebsiella pneumoniae sensitive to Merrem. MD MARINA Santiago/MODL /[id number]
== END 2019-02-20 10:26 | disposition home or self-care (01) | DRG 690 ==
LOC: ER 09:41 → ERHOLD 10:40 → MED/SURG3 18:29
PROVIDERS: ADMIT Family Medicine; ATTEND Family Medicine
PROC: 02HV33Z Insertion of Infusion Device into Superior Vena Cava, Percutaneous Approach (ICD-10-PCS; principal; 2019-02-16)
DX: N30.91 Cystitis, unspecified with hematuria (principal); Z16.12 Extended spectrum beta lactamase (ESBL) resistance; T82.898A Other specified complication of vascular prosthetic devices, implants and grafts, initial encounter; B96.1 Klebsiella pneumoniae [K. pneumoniae] as the cause of diseases classified elsewhere; I12.9 Hypertensive chronic kidney disease with stage 1 through stage 4 chronic kidney disease, or unspecified chronic kidney disease; N18.3 Chronic kidney disease, stage 3 (moderate); E78.5 Hyperlipidemia, unspecified; J45.909 Unspecified asthma, uncomplicated; M06.9 Rheumatoid arthritis, unspecified; F32.9 Major depressive disorder, single episode, unspecified; K21.9 Gastro-esophageal reflux disease without esophagitis; E66.9 Obesity, unspecified; Z68.34 Body mass index [BMI] 34.0-34.9, adult; G47.00 Insomnia, unspecified; R53.81 Other malaise; Y84.8 Other medical procedures as the cause of abnormal reaction of the patient, or of later complication, without mention of misadventure at the time of the procedure; Z79.02 Long term (current) use of antithrombotics/antiplatelets; Z86.718 Personal history of other venous thrombosis and embolism; Z86.73 Personal history of transient ischemic attack (TIA), and cerebral infarction without residual deficits
CPT/HCPCS: 36415; 36569; 71045; 80048; 80053; 81001; 85025; 87040; 87070; 87086; 87186; 93970; 94664; 99284; J2270; J2405; J7030; Q0162

== ENCOUNTER 2019-07-13 17:51 | Observation (INO) | payer MEDICARE, OTHER ==
[~2019-07-13] VITALS: Ht 170.2 cm; Wt 99.8 kg
[~2019-07-13 17:51] MED LIST changes: +CLOPIDOGREL75 MG; +CRESTOR10 MG; +GABAPENTIN300 MG PO; +LEVOTHYROXINE150 MCG; +METOPROLOL SUCC50 MG PO; +PANTOPRAZOLE SO40 MG; +POTASSIUM CHLO10 ME1 PO; +PROZAC20 MG
--- OUTSIDE RECORDS SUMMARY | 2019-07-13 17:55 | XMS REPORT | Clinical Summary ---
Author Author [facility] Address Unknown Phone Unavailable Care Team Providers Care Finishing Area Operator Name Role Phone Mekhi Verduzco PCP Allergies Comments Active Allergy Reactions Severity Noted Date Tears skin Adhesive Other (See 09/12/2016 Comments) Pt gets very Confused and hallucinates. Hydromorphone 07/10/2016 Sulfa (Sulfonamide Rash Low 09/16/2015 Antibiotics) Sight Sulfasalazine 10/02/2015 Medications End Date Status Medication Sig Dispensed Refills Start Date Active magnesium oxide (MAG-OX) Take 400 mg 0 400 mg tablet by mouth. Active metoprolol (TOPROL-XL) Take 100 mg 0 100 MG 24 hr tablet by mouth daily . Active potassium chloride Take 10 mEq 0 (KLOR-CON) 10 MEQ CR by mouth 2 tablet (two) times daily . Active gabapentin (NEURONTIN) Take 600 mg 0 600 MG tablet by mouth 2 (two) times daily . Active folic acid (FOLVITE) 1 MG Take 1 mg by 0 tablet mouth. Active simvastatin (ZOCOR) 40 MG Take 40 mg by 0 tablet mouth nightly . Active levothyroxine (SYNTHROID, Take 100 mcg 0 LEVOTHROID) 100 MCG by mouth tablet daily . Active FLUoxetine (PROZAC) 10 MG Take 10 mg by 0 tablet mouth daily. Active ondansetron (ZOFRAN) 4 MG Take 4 mg by 0 tablet mouth 2 (two) times daily as needed for Nausea. Active clopidogrel (PLAVIX) 75 Take 75 mg by 0 mg tablet mouth daily. Active cyclobenzaprine Take 10 mg by 0 (FLEXERIL) 10 MG tablet mouth 3 (three) times daily as needed for Muscle spasms. Active ALBUTEROL SULFATE (PROAIR Inhale by 0 HFA INHL) mouth via inhaler as needed. Active ALPRAZolam (XANAX) 0.5 MG Take 0.5 mg 0 tablet by mouth 3 (three) times daily as needed for Anxiety. Active PANTOPRAZOLE SODIUM Take by 0 (PROTONIX ORAL) mouth. Active valsartan-hydrochlorothia Take 1 tablet 0 zide (DIOVAN-HCT) by mouth 320-12.5 mg per tablet daily. Active fluconazole (DIFLUCAN) Take 200 mg 0 200 MG tablet by mouth daily. Active Problems Problem Noted Date H/O total hip arthroplasty 09/18/2016 Right hip pain 07/10/2016 H/O total hip arthroplasty, right 09/27/2015 History of total right hip arthroplasty 09/27/2015 Dislocation of hip, right, initial encounter 016 Essential hypertension with goal blood pressure less than 140/90 09/17/2015 Hypothyroidism 09/17/2015 History of stroke - on 09/09/15 09/17/2015 Hypoglycemia 09/17/2015 GERD (gastroesophageal reflux disease) 09/17/2015 Anemia 09/17/2015 Social History Date Tobacco Use Types Packs/Day Years Used Former Smoker 2 30 Comments: quit 2014 years ago / still do es E cigarrete Alcohol Use Drinks/Week oz/Week Comments No Sex Assigned at Date Recorded Not on file Industry Job Start Date Occupation Not on file Not on file Not on file Travel End Travel History Travel Start No recent travel history available. Last Filed Vital Signs Not on file Plan of Treatment Not on file Implants Device Identifier Shelf Expiration Date Model / Serial / L ot Implanted Type Area Manufactur er 05/01/2018 [id number] / [id number] / Bone Chip Canc 1.7-10mm 30ml Bone Right: Hip M USCULOSKE [id number] - [id number] LETAL Implanted: Qty: 1 on 09/27/2015 by TRANSPLANT Mahamed Chery Jr., MD FND 04/13/2018 [id number] / [id number] / Bone Chip Canc 1.7-10mm 30ml Bone Right: Hip M USCULOSKE [id number] - [id number] LETAL Implanted: Qty: 1 on 09/27/2015 by Mahamed Hallman Jr., MD FND 11/09/2018 [id number] / [id number] / Bone Chip Canc 1.7-10mm 30ml Bone Right: Hip M USCULOSKE [id number] - [id number] LETAL Implanted: Qty: 1 on 07/10/2016 by TRANSPLANT Mahamed Chery Jr., MD FND 10/27/2018 [id number] / [id number] / Bone Chip Canc 1.7-10mm 30ml Bone Right: Hip M USCULOSKE 331751 - [id number] LETAL Implanted: Qty: 1 on 07/10/2016 by TRANSPLANT Mahamed Chery Jr., MD FND 04/02/2026- / / [id number] Cbl Trma Cbl-Rdy Gtr 1.7d005sb Fracture/F Right: Hip JAI:ZIM - [id number] ixation CM US Implanted: Qty: 1 on 07/10/2016 by Mahamed Chery Jr., MD 03/02/2026- / / [id number] Cbl Trma Cbl-Rdy Gtr 1.8h377fv Fracture/F Right: Hip JAI:ZIM -18 - [id number] ixation CM US Implanted: Qty: 1 on 07/10/2016 by Mahamed Chery Jr., MD 04/30/2026 / [id number] Cbl Trma Cbl-Rdy Gtr [id number] Fracture/F Right: Hip JAI:ZIM -18 - [id number] ixation CM US Implanted: Qty: 1 on 07/10/2016 by Mahamed Chery Jr., MD 01/04/2026 [id number] / / [id number] Scr Acet 6.8eyz71ig [id number] - Joints Right: Hip BIOMET [id number] ORTHO Implanted: Qty: 1 on 07/10/2016 by Mahamed Chery Jr., MD 04/25/2026 [id number] / / [id number] Scr Lp Dome 6.5x30mm [id number] - Joints Right: Hip BIOMET [id number] ORTHO Implanted: Qty: 1 on 07/10/2016 by Mahamed Chery Jr., MD 02/02/2026 [id number] / / [id number] Scr Lp G7 Acet Dome 6.5x20mm Joints Right: Hip B IOMET [id number] - [id number] ORTHO Implanted: Qty: 1 on 07/10/2016 by Mahamed Chery Jr., MD 02/05/2026 [id number] / / [id number] Scr Lp G7 Acet Dome 6.5x20mm Joints Right: Hip B IOMET [id number] - [id number] ORTHO Implanted: Qty: 1 on 07/10/2016 by Mahamed Chery Jr., MD 02/17/2026 [id number] / / [id number] Liner G7 Dual Mobility 46mm G Joints Right: Hip BIOMET [id number] - [id number] ORTHO Implanted: Qty: 1 on 07/10/2016 by Mahamed Chery Jr., MD 04/02/2024 [id number] / / [id number] Revision Stem Straight Tapered Joints Right: Hip BIOMET Splined Distal Stem 17mm X190mm With Locking Screw Implanted: Qty: 1 on 07/10/2016 by Mahamed Chery Jr., MD 03/31/2021 [id number] / / [id number] Dual Mobility Bearing 28mm Head Joints Right: Hip BIOMET Size; 48mm Bearing Size G Implanted: Qty: 1 on 07/10/2016 by Mahamed Chery Jr., MD 01/31/2026 650-1055 / / [id number] Biolox Delta Option Hip System 28mm Joints Right: Hip BIOMET Head Type 16/18 Taper Implanted: Qty: 1 on 07/10/2016 by Mahamed Chery Jr., MD 06/30/2026 [id number] / / [id number] Porous Plasma/ Uncemented A Size Joints Right: Hip BIOMET 50mm Type 1 Taper Implanted: Qty: 1 on 07/10/2016 by Mahamed Chery Jr., MD 05/13/2026 [id number] / / [id number] +3mm Neck Type 1 Taper Joints Right: Hip BIOMET Implanted: Qty: 1 on 07/10/2016 by Mahamed Chery Jr., MD 08/10/2025 [id number] / / [id number] Shell Acet Osseoti Sz G 58mm Joints Right: Hip B IOMET [id number] - [id number] Implanted: Qty: 1 on 07/10/2016 by Mahamed Chery Jr., MD 02/05/2026 [id number] / / [id number] Scr Lp Acet Dome 6.5x25mm [id number] Joints Right: Hip BIOMET - [id number] ORTHO Implanted: Qty: 1 on 07/10/2016 by Mahamed Chery Jr., MD 10/01/2018 [id number] / / [id number] Liner Walton E1 Sz G 36mm Joints Right: Hip BIO MET [id number] - [id number] Implanted: Qty: 1 on 09/18/2016 by Mahamed Chery Jr., MD 04/30/2018 [id number] / / [id number] Stimulan Paste/Beads Right: Hip BIOCOMPOSI Implanted: Qty: 1 on 09/27/2015 by Mahamed Coto Jr., MD 12/31/2017 [id number] / / [id number] Stimulan Paste/Beads Right: Hip BIOCOMPOSI Implanted: Qty: 1 on 09/27/2015 by Mahamed Coto Jr., MD 08/16/2024 [id number] / / [id number] Modular Head Right: Hip BIOMET Implanted: Qty: 1 on 09/18/2016 by Mahamed Chery Jr., MD Results Not on fileafter 07/12/2018 Insurance Payer Benefit Subscriber ID Type Phone Address Plan / Group MEDICARE MEDICARE A xxxxxxxxxx Medicare B MCR SUPPLEMENT/INDIVIDUAL AARP/UNITE xxxxxxxxxxx [facility] gap D HEALTHCARE -[id number] Advance Directives Patient has advance care planning documents, and code status on file. For more i nformation, please contact: [facility] [address] [place] [address] Date Inactivated Comments Code Status Date Activated 09/19/2016 11:57 PM Full Code 09/18/2016 11:12 AM This code status was determined by: Patient 07/12/2016 2:52 PM Full Code 07/10/2016 6:25 PM This code status was determined by: Patient 07/10/2016 6:25 PM Full Code 07/10/2016 7:49 AM This code status was determined by: Patient 09/29/2015 2:09 PM Full Code 09/27/2015 8:59 PM This code status was determined by: Patient 09/27/2015 8:59 PM Full Code 09/27/2015 10:41 AM This code status was determined by: Patient
--- OUTSIDE RECORDS SUMMARY | 2019-07-13 17:55 | XMS REPORT | Clinical Summary ---
Author Author [facility] Address Unknown Phone Unavailable Care Team Providers Care Tank Builder Supervisor Name Role Phone Mekhi Verduzco MD PCP Allergies Comments Active Allergy Reactions Severity Noted Date Sulfa (Sulfonamide 08/20/2015 Antibiotics) Medications End Date Status Medication Sig Dispensed Refills Start Date Active ALPRAZolam (XANAX) 0.5 MG Take 0.5 mg 0 tablet by mouth 3 (three) times a day as needed for anxiety. Active FLUoxetine (PROzac) 20 MG Take 20 mg by 0 capsule mouth 2 (two) times a day. Active folic acid (FOLVITE) 1 MG Take 1 mg by 0 tablet mouth daily. Active gabapentin (NEURONTIN) Take 600 mg 0 600 MG tablet by mouth 2 (two) times a day. Active levothyroxine (SYNTHROID, Take 100 mcg 0 LEVOTHROID) 100 MCG by mouth tablet every morning. Active magnesium oxide (MAG-OX) Take 400 mg 0 400 mg tablet by mouth 2 (two) times a day. Active potassium chloride Take 10 mEq 0 (K-DUR) 10 MEQ CR tablet by mouth 2 (two) times a day. Active omeprazole (PriLOSEC) 20 Take 20 mg by 0 MG capsule mouth 2 (two) times a day. Active metoprolol succinate XL Take 100 mg 0 (TOPROL-XL) 100 MG 24 hr by mouth tablet daily. Active clopidogrel (PLAVIX) 75 Take 75 mg by 0 mg tablet mouth daily. Active HYDROcodone-acetaminophen 0 (NORCO) 10-325 mg per 7 tablet Active valsartan-hydrochlorothia Take 1 tablet 3 04/04 zide (DIOVAN-HCT) by mouth once 7 320-12.5 mg per tablet daily. Active Problems Problem Noted Date Unsteady gait 08/22/2015 Opioid intoxication delirium 08/22/2015 Non-compliance with treatment 08/22/2015 Family History Medical History Relation Name Comments Heart disease Father Heart disease Mother Relation Name Status Comments Father Mother Social History Date Tobacco Use Types Packs/Day Years Used Current Every Day Smoker Electronic Cigarettes Smokeless Tobacco: Current User Drinks/Week oz/Week Comments Alcohol Use 1 Glasses of wine 1.0 ocasionally Yes Sex Assigned at Date Recorded Not on file Industry Job Start Date Occupation Not on file Not on file Not on file Travel End Travel History Travel Start No recent travel history available. Last Filed Vital Signs Not on file Plan of Treatment Health Maintenance Due Date Last Done Comments BREAST CANCER SCREENING 01/09/1998 COLONOSCOPY SCREENING 01/09/1998 SHINGLES VACCINES (#1) 01/09/1998 65+ PNEUMOCOCCAL VACCINE 01/09/2013 (1 of 2 - PCV13) INFLUENZA VACCINE 10/02/2019 Results Not on fileafter 07/12/2018 Insurance Type Payer Benefit Subscriber ID Effective Phone Address Plan / Dates Group Commercial AARP AARP xxxxxxxxxxx 2013- SUPPLEMENT Present Medicare MEDICARE MEDICARE xxxxxxxxxx 2010-P [place], PART A AND resent [place] B Advance Directives For more information, please contact: [phone] Patient Assistant Scientist Explanation Type Date Recorded Advance Directives, Living Will and Medical Power of Career And Transition Teacher Date Inactivated Comments Code Status Date Activated 08/28/2015 5:39 PM Full Code 08/20/2015 11:35 PM Code Status decision reached by: Patient
[2019-07-13] MEDS ORDERED: SODIUM CHLORIDE 0.9% 1000ML 1,000 ML IV STA (18:13)
[2019-07-13] MEDS ORDERED: SODIUM CHLORIDE 0.9% 1000ML 1,000 ML ONE (18:34)
[2019-07-13 18:49] LABS: BASOPHILS % 0.3 % (0.0-1.0); EOSINOPHILS # (AUTO) 0.2 (0.0-0.4); EOSINOPHILS % 2.4 % (0.0-6.0); HEMOGLOBIN 12.4 g/dL (12.0-16.0); LYMPHOCYTES % 23.6 % (18.0-39.1); MEAN CORPUSCULAR HEMOGLOBIN 28.4 pg (28-32); MEAN CORPUSCULAR HGB CONC 31.8 g/dL (31-35); MEAN CORPUSCULAR VOLUME 89.4 fL (81-99); MONOCYTES # (AUTO) 0.9 (0.2-0.8); MONOCYTES % 10.6 % (4.4-11.3); NEUTROPHILS # (AUTO) 5.4 (2.1-6.9); NEUTROPHILS % 62.9 % (38.7-80.0); PLATELET COUNT 288 x10e3/uL (140-360); RED BLOOD COUNT 4.36 x10e6/uL (3.6-5.1); RED CELL DISTRIBUTION WIDTH 13.2 % (11.7-14.4)
[2019-07-13 18:58] LABS: INR 0.96; PROTHROMBIN TIME 13.3 seconds (11.9-14.5)
[2019-07-13 18:59] LABS: PARTIAL THROMBOPLASTIN TIME 32.3 seconds (23.8-35.5)
[2019-07-13 19:04] LABS: ALBUMIN 3.5 g/dL (3.5-5.0); ALBUMIN/GLOBULIN RATIO 1.1 (0.8-2.0); ANION GAP 14.2 mmol/L (8-16); CALCIUM 9.5 mg/dL (8.4-10.2); CREATININE, SERUM 1.37 mg/dL (0.57-1.11); POTASSIUM 4.2 mmol/L (3.5-5.1)
[2019-07-13 19:14] LABS: CREATINE KINASE MB 0.4 ng/mL (0-5.0)
[2019-07-13] MEDS ORDERED: CALCIUM GLUCONATE 10% INJ 4.65 MEQ in SODIUM CHLORIDE 0.9% 50ML 50 ML IV ONE (19:30)
[2019-07-13] MEDS ORDERED: GLUCAGON FOR INJ 1 MG VIAL IV ONE (19:30)
[2019-07-13] MEDS ORDERED: ASPIRIN 81 MG CHEW TAB PO ONE (19:45)
--- NOTE | 2019-07-13 19:53 | Emergency Department Note ---
History of Present Illnes History of Present Illness Chief Complaint: General Medicine Complaints Stated Complaint: EXTREMELY LOW BP History of Present Illness This is a 69 year old female . Historian: Patient Corporate Planning Manager Required: No Onset (how long ago): week(s) Severity: moderate Onset quality: gradual Duration (how long): week(s) (1 WEEK) Timing of current episode: constant Progression: waxing and waning Chronicity: new Context: other (PATIENT ON TWO BP MEDICATIONS ) Relieving factors: none Exacerbating factors: none (JAMES HUGHES NP) Past Medical/Family History Physician Review I have reviewed the patient's past medical and family history. Any updates have been documented here. (JAMES HUGHES NP) Past Medical History Recent Fever: No Clinical Suspicion of Infectio: No New/Unexplained Change in Ment: No Past Medical History: Hypertension, CVA, UTI's, Anemia Other Medical History: HIGH CHOLESTEROL, RHEUMATOID ARTHRITIS, UTERINE CA( SURGICAL) CVA X 3 ?"LEFT ARM-CLOTS 2ND TO PICC LINE"? 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 tract Past Surgical History: Appendectomy, Hysterectomy Other Surgery: BREAST AUGMENTATION, SPINAL FUSION, RT HIP REPLACEMENT, BILATERAL KNEE (JAMES HUGHES NP) Recent Fever: No Clinical Suspicion of Infectio: No Past Medical History: Hypertension (VIKRAM FAM DO) Social History Smoking Cessation: Never Smoker Alcohol Use: None Any Illegal Drug Use: No TB Exposure/Symptoms: No Physically hurt or threatened: No (JAMES HUGHES NP) Family History Family history of heart diseas: Yes (JAMES HUGHES NP) Other Last Tetanus: UNK Any Pre-Existing Lines (PICC,: No (JAMES HUGHES NP) Review of Systems Review of Systems Constitutional: no symptoms EENTM: no symptoms Cardiovascular: no symptoms Respiratory: dyspnea on exertion Gastrointestinal: no symptoms Genitourinary: no symptoms Musculoskeletal: no symptoms Integumentary: no symptoms Neurological: as per HPI (SOME DIZZINESS) Psychological: no symptoms Endocrine: no symptoms Hematological/Lymphatic: no symptoms Review of other systems All other systems reviewed and negative. (JAMES HUGHES NP) Constitutional: no symptoms EENTM: no symptoms Cardiovascular: no symptoms Respiratory: no symptoms Gastrointestinal: no symptoms Genitourinary: no symptoms Musculoskeletal: no symptoms Integumentary: no symptoms Neurological: no symptoms Psychological: no symptoms Endocrine: no symptoms Hematological/Lymphatic: no symptoms (VIKRAM FAM DO) Physical Exam Related Data Allergies: Coded Allergies: Sulfa (Sulfonamide Antibiotics) (Verified Allergy, Unknown, 07/13/19) Triage Vital Signs Vital Signs Date Time Temp Pulse Resp B/P (MAP) Pulse Ox O2 Delivery O2 Flow Rate FiO2 07/13/19 17:56 97.8 69 18 87/58 92 (JAMES HUGHES NP) Exam Narrative Exam Narrative PATIENT IS A 69 YEAR OLD FEMALE THAT PRESENTS WITH HYPOTENSION ON AND OFF X 1 WEEK. PATIENT STATES SHE IS ALSO DIZZY PATIENT STATES THAT SHE SAW HER PCP DR WHITING LAST FRIDAY WITH SAME COMPLIANT AND ONE OF HER BP MEDICATIONS WAS CHANGED. SHE TAKES LOSARTAN IN THE AM AND METOPROLOL 100MG Q PM. PATIENT WAS TOLD TO CONTINUE MEDICATIONS EVEN THOUGH BP WAS LOW (JAMES HUGHES NP) Physical Exam CONSTITUTIONAL Constitutional: well-developed, well-nourished, obese HENT HENT: normocephalic, atraumatic HENT - Ear: left TM normal EYES Eyes: PERRL, conjunctivae normal NECK Neck: ROM normal, supple PULMONARY Pulmonary: effort normal, breath sounds normal CARDIOVASCULAR Cardiovascular: regular rhythm, capillary refill normal GASTROINTESTINAL Abdominal: soft, nontender GENITOURINARY SKIN Skin: warm, dry MUSCULOSKELETAL Musculoskeletal: ROM normal NEUROLOGICAL Neurological: alert, oriented x 3, DTRs normal, no gross motor or sensory deficits PSYCHOLOGICAL Psychiatric/behavioral: mood/affect normal, behavior normal (JAMES HUGHES NP) Constitutional: well-developed, well-nourished HENT: normocephalic, atraumatic, oropharynx clear/moist, nose normal HENT - Ear: left ext ear normal, right ext ear normal Eyes: PERRL, conjunctivae normal Neck: ROM normal Pulmonary: effort normal, breath sounds normal Cardiovascular: regular rhythm, heart sounds normal, capillary refill normal, normal rate Abdominal: soft, nontender, bowel sounds normal Genitourinary: exam deferred Skin: warm, dry Musculoskeletal: ROM normal Neurological: alert, oriented x 3, no gross motor or sensory deficits Psychiatric/behavioral: mood/affect normal, judgement normal (VIKRAM FAM DO) Results Laboratory Laboratory Laboratory Tests Test 07/13/19 18:14 White Blood Count 8.59 x10e3/uL (4.8-10.8) Red Blood Count 4.36 x10e6/uL (3.6-5.1) Hemoglobin 12.4 g/dL (12.0-16.0) Hematocrit 39.0 % (34.2-44.1) Mean Corpuscular Volume 89.4 fL (81-99) Mean Corpuscular Hemoglobin 28.4 pg (28-32) Mean Corpuscular Hemoglobin Concent 31.8 g/dL (31-35) Red Cell Distribution Width 13.2 % (11.7-14.4) Platelet Count 288 x10e3/uL (140-360) Neutrophils (%) (Auto) 62.9 % (38.7-80.0) Lymphocytes (%) (Auto) 23.6 % (18.0-39.1) Monocytes (%) (Auto) 10.6 % (4.4-11.3) Eosinophils (%) (Auto) 2.4 % (0.0-6.0) Basophils (%) (Auto) 0.3 % (0.0-1.0) Neutrophils # (Auto) 5.4 (2.1-6.9) Lymphocytes # (Auto) 2.0 (1.0-3.2) Monocytes # (Auto) 0.9 (0.2-0.8) Eosinophils # (Auto) 0.2 (0.0-0.4) Basophils # (Auto) 0.0 (0.0-0.1) Absolute Immature Granulocyte (auto 0.02 x10e3/uL (0-0.1) Prothrombin Time 13.3 seconds (11.9-14.5) Prothromb Time International Ratio 0.96 Activated Partial Thromboplast Time 32.3 seconds (23.8-35.5) Sodium Level 138 mmol/L (136-145) Potassium Level 4.2 mmol/L (3.5-5.1) Chloride Level 99 mmol/L (98-107) Carbon Dioxide Level 29 mmol/L (22-29) Anion Gap 14.2 mmol/L (8-16) Blood Urea Nitrogen 31 mg/dL (7-26) Creatinine 1.37 mg/dL (0.57-1.11) Estimat Glomerular Filtration Rate 38 ML/MIN (60-) BUN/Creatinine Ratio 23 (6-25) Glucose Level 86 mg/dL (74-118) Calcium Level 9.5 mg/dL (8.4-10.2) Total Bilirubin 0.3 mg/dL (0.2-1.2) Aspartate Amino Transf (AST/SGOT) 17 IU/L (5-34) Alanine Aminotransferase (ALT/SGPT) 15 IU/L (0-55) Alkaline Phosphatase 68 IU/L (40-150) Creatine Kinase 25 IU/L (29-168) Creatine Kinase MB 0.40 ng/mL (0-5.0) Troponin I 0.032 ng/mL (0-0.300) Total Protein 6.7 g/dL (6.5-8.1) Albumin 3.5 g/dL (3.5-5.0) Globulin 3.2 g/dL (2.3-3.5) Albumin/Globulin Ratio 1.1 (0.8-2.0) Lab results reviewed: Yes (JAMES HUGHES NP) Imaging Y: Yes (JAMES HUGHES NP) Procedures 12 Lead ECG Interpretation Corporate Planning Manager: Interpreted by ED physician (SETH) Date: July 13, 2019 Time: 18:02 Prior MEDICAL ADMINISTRATOR tracings: reviewed Rhythm: sinus rhythm Conduction: 1st degree Clinical Impression: abnormal ECG (JAMES HUGHES NP) Critical Care Time Subsequent provider I assumed direction of critical care for this patient from another provider of my specialty. (JAMES HUGHES NP) Assessment & Plan Assessment & Plan Problems: (1) Hypotension Assessment & Plan PATIENT IS A 69 YEAR OLD FEMALE THAT IS IN NAD. DISCUSSED WITH DR FAM PATIENT PRESENTATION , EXAM AND PLAN OF CARE. (JAMES HUGHES NP) Assessment & Plan Patient admitted to the medicine service. The patient's history, exam findings, diagnostics, and a summary of any interventions or procedures was reviewed in detail with our SUNNY. I personally interviewed and examined the patient, and I have reviewed and agree with the HPI andexam. My personal exam shows [patient in NAD. Ca and Glucagon ordered for possible b-dk toxicity ]. I confirm the diagnosis as documented by the SUNNY. I have reviewed and agree with the care plan articulated in the disposition section. (VIKRAM FAM DO) Reassessment Reassessment ADMISSION ORDERS PLACED BY DR FAM. BLOOD PRESSURE SLIGHTLY BETTER AT 92/47. UNDATED PATIENT ON ALL RESULTS. (JAMES HUGHES NP) Depart Disposition: ADMITTED Last Vital Signs Date Time Temp Pulse Resp B/P (MAP) Pulse Ox O2 Delivery O2 Flow Rate FiO2 07/13/19 17:56 97.8 69 18 87/58 92 (JAMES HUGHES CIRCULAR KNITTER) Home Meds Reported Medications Cranberry Extract (THERACRAN) 650 Mg Capsule, 360 MG PO DAILY@1700 07/14/19 Methenamine Hippurate (METHENAMINE HIPPURATE) 1 Gm Tablet, 1 G PO BID 07/14/19 Fluoxetine Hcl (PROZAC) 20 Mg Capsule, 20 MG DAILY, #30 TAB 02/16/19 Rosuvastatin Calcium (CRESTOR) 10 Mg Tab THERAPEUTICALLY SUBSTITUTED WITH SIMVASTATIN 40MG 02/16/19 Rosuvastatin Calcium (CRESTOR) 10 Mg Tab THERAPEUTICALLY SUBSTITUTED WITH SIMVASTATIN 40MG 02/16/19 Metoprolol Succinate (METOPROLOL SUCCINATE) 50 Mg Tab.er.24h, 100 MG PO DAILY, MG 02/16/19 Gabapentin (GABAPENTIN) 300 Mg Capsule, 300 MG PO BID, #60 CAP 02/16/19 Potassium Chloride (POTASSIUM CHLORIDE) 10 Meq Tab.er.prt, 10 MEQ PO, TAB 02/16/19 Magnesium Oxide (MAGNESIUM OXIDE) 400 Mg Tablet, 400 MG PO DAILY, TAB 02/16/19 Pantoprazole Sodium* (PROTONIX) 40 Mg Tablet.dr, 40 02/16/19 Levothyroxine Sodium (LEVOTHYROXINE SODIUM) 150 Mcg Tablet, 150 02/16/19 Clopidogrel Bisulfate (CLOPIDOGREL) 75 Mg Tablet, 75 02/16/19 Gabapentin (NEURONTIN) 300 Mg Capsule, 1 EACH PO HS 11/25/13 Temazepam (TEMAZEPAM) 15 Mg Capsule, 1 EACH PO HS 11/25/13 Levothyroxine Sodium (LEVOXYL) 50 Mcg Tablet, 1 EACH PO 11/25/13 Simvastatin (SIMVASTATIN) 20 Mg Tablet, 1 EACH PO HS 11/25/13 Omeprazole (PRILOSEC) 20 Mg Capsule.dr, 1 EACH PO BID 11/25/13 Amlodipine Besylate (AMLODIPINE BESYLATE) 10 Mg Tablet, 10 MG PO HS, #30 TAB 11/25/13 Potassium Gluconate (POTASSIUM) 99 Mg Tablet, 1 EACH PO BID 11/25/13 Mirtazapine (MIRTAZAPINE) 7.5 Mg Tablet, 1 EACH PO HS 11/25/13 Fluoxetine Hcl (PROZAC) 20 Mg Capsule, 20 MG PO BID, #30 TAB 11/25/13 Magnesium Oxide (MAGNESIUM OXIDE) 400 Mg Tablet, 400 MG PO DAILY, TAB 11/25/13 Folic Acid (FOLIC ACID) 1 Mg Tablet, 1 MG PO DAILY, #30 TAB 11/25/13 Metoprolol Succinate (TOPROL XL) 25 Mg Tab.er.24h, 25 25/100 PO DAILY, #30 TAB 11/25/13 Budesonide/Formoterol Fumarate (SYMBICORT 160-4.5 MCG INHALER) 10.2 Gm Hfa.aer.ad, 2 INH INH BID 05/18/12 JAMES HUGHES NP July 13, 2019 18:13 VIKRAM FAM DO July 17, 2019 11:40
[2019-07-13] MEDS ORDERED: METHYLPREDNISOLONE SOD SUCC 40 MG/ML VIAL 1ML IV SCH (20:00)
--- OUTSIDE RECORDS SUMMARY | 2019-07-13 20:32 | XMS REPORT | Clinical Summary ---
Author Author SAVANA [facility] Address Unknown Phone Unavailable Care Team Providers Care Performance Instructor Name Role Phone Mekhi Verduzco PCP Allergies [...] ot Implanted Type Area Manufactur er 05/01/2018 [id number] / [id number] / Bone Chip Canc 1.7-10mm 30ml Bone Right: Hip M USCULOSKE 509175 - [id number] LETAL Implanted: Qty: 1 on 09/27/2015 by TRANSPLANT Mahamed Chery Jr., MD FND 04/13/2018 [id number] / [id number] / Bone Chip Canc 1.7-10mm 30ml Bone Right: Hip M USCULOSKE 145940 - [id number] LETAL Implanted: Qty: 1 on 09/27/2015 by Mahamed Hallman Jr., MD FND 11/09/2018 [id number] / [id number] / Bone Chip Canc 1.7-10mm 30ml Bone Right: Hip M USCULOSKE 633310 - [id number] LETAL Implanted: Qty: 1 on 07/10/2016 by TRANSPLANT Mahamed Chery Jr., MD FND 10/27/2018 [id number] / [id number] / Bone Chip Canc 1.7-10mm 30ml Bone Right: Hip M USCULOSKE 928107 - [id number] LETAL Implanted: Qty: 1 on 07/10/2016 by TRANSPLANT Mahamed Chery Jr., MD FND 04/02/2026- / / [id number] Cbl Trma Cbl-Rdy Gtr 1.8o699od Fracture/F Right: Hip JAI:ZIM - [id number] ixation CM US Implanted: Qty: 1 on 07/10/2016 by Mahamed Chery Jr., MD 03/02/2026- / / [id number] Cbl Trma Cbl-Rdy Gtr 1.6a227ky Fracture/F Right: Hip JAI:ZIM -18 - [id number] ixation CM US Implanted: Qty: 1 on 07/10/2016 by Mahamed Chery Jr., MD 04/30/2026 / [id number] Cbl Trma Cbl-Rdy Gtr 1.5s089uq Fracture/F Right: Hip JAI:ZIM -18 - [id number] ixation CM US Implanted: Qty: 1 on 07/10/2016 by Mahamed Chery Jr., MD 01/04/2026 [id number] / / [id number] Scr Acet 6.3vqx26yk [id number] - Joints Right: Hip BIOMET [id number] ORTHO Implanted: Qty: 1 on 07/10/2016 by Mahamed Chery Jr., MD 04/25/2026 [id number] / / [id number] Scr Lp Dome 6.5x30mm [id number] - Joints Right: Hip BIOMET [id number] ORTHO Implanted: Qty: 1 on 07/10/2016 by Mahamed Chery Jr., MD 02/02/2026 [id number] / / [id number] Scr Lp G7 Acet Dome 6.5x20mm Joints Right: Hip B IOMET [id number] - [id number] ORTHO Implanted: Qty: 1 on 07/10/2016 by Mahamed Chery Jr., MD 02/05/2026 [id number] / / [id number] Scr Lp G7 Acet Dome 6.5x20mm Joints Right: Hip B IOMET [id number] - [id number] ORTHO Implanted: Qty: 1 on 07/10/2016 by Mahamed Chery Jr., MD 02/17/2026 [id number] / / [id number] Liner G7 Dual Mobility 46mm G Joints Right: Hip BIOMET [id number] - [id number] ORTHO Implanted: Qty: 1 on 07/10/2016 by Mahamed Chery Jr., MD 04/02/2024 [id number] / / [id number] Revision Stem Straight Tapered Joints Right: Hip BIOMET Splined Distal Stem 17mm X190mm With Locking Screw Implanted: Qty: 1 on 07/10/2016 by Mahamed Chery Jr., MD 03/31/2021 [id number] / / [id number] Dual Mobility Bearing 28mm Head Joints Right: Hip BIOMET Size; 48mm Bearing Size G Implanted: Qty: 1 on 07/10/2016 by Mahamed Chery Jr., MD 01/31/2026 650-1055 / / [id number] Biolox Delta Option Hip System 28mm Joints Right: Hip BIOMET Head Type 16/18 Taper Implanted: Qty: 1 on 07/10/2016 by Mahamed Chery Jr., MD 06/30/2026 [id number] / / [id number] Porous Plasma/ Uncemented A Size Joints Right: Hip BIOMET 50mm Type 1 Taper Implanted: Qty: 1 on 07/10/2016 by Mahamed Chery Jr., MD 05/13/2026 [id number] / / [id number] +3mm Neck Type 1 Taper Joints Right: Hip BIOMET Implanted: Qty: 1 on 07/10/2016 by Mahamed Chery Jr., MD 08/10/2025 [id number] / / [id number] Shell Acet Osseoti Sz G 58mm Joints Right: Hip B IOMET [id number] - [id number] Implanted: Qty: 1 on 07/10/2016 by Mahamed Chery Jr., MD 02/05/2026 [id number] / / [id number] Scr Lp Acet Dome 6.5x25mm [id number] Joints Right: Hip BIOMET - [id number] ORTHO Implanted: Qty: 1 on 07/10/2016 by Mahamed Chery Jr., MD 10/01/2018 [id number] / / [id number] Liner Ethel E1 Sz G 36mm Joints Right: Hip BIO MET [id number] - [id number] Implanted: Qty: 1 on 09/18/2016 by Mahamed Chery Jr., MD 04/30/2018 [id number] / / [id number]/[id number] Stimulan Paste/Beads Right: Hip BIOCOMPOSI Implanted: Qty: 1 on 09/27/2015 by Mahamed Coto Jr., MD 12/31/2017 620-010 / / [id number]/[id number] Stimulan Paste/Beads Right: Hip BIOCOMPOSI Implanted: Qty: 1 on 09/27/2015 by Mahamed Coto Jr., MD 08/16/2024 [id number] / / [id number] Modular Head Right: Hip BIOMET Implanted: Qty: 1 on 09/18/2016 by Mahamed Chery Jr., MD Results Not on fileafter 07/12/2018 Insurance Payer Benefit Subscriber ID Type Phone Address Plan / Group MEDICARE MEDICARE A xxxxxxxxxx Medicare B MCR SUPPLEMENT/INDIVIDUAL AARP/UNITE xxxxxxxxxxx [facility] gap D HEALTHCARE -[id number] Advance Directives Patient has advance care planning documents, and code status on file. For more i nformation, please contact: [facility] [address] [place] [address] Date Inactivated Comments Code Status [...]
--- OUTSIDE RECORDS SUMMARY | 2019-07-13 20:32 | XMS REPORT | Clinical Summary ---
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
[2019-07-13] MEDS: MORPHINE SULFATE INJ 4 MG/ML INJ 1ML IV PRN (20:40)
[2019-07-13] MEDS: METHYLPREDNISOLONE SOD SUCC 40 MG/ML VIAL 1ML IV SCH (20:40)
[2019-07-13 22:42] VITALS: BP 161/90
[2019-07-13] MEDS: SODIUM CHLORIDE 0.9% 1000ML 1,000 ML IV SCH (23:35)
[2019-07-14] VITALS (9 sets, daily range): BP systolic 131–161; BP diastolic 69–90
--- NOTE | 2019-07-14 00:15 | NUR ---
RECEIVED PATIENT FROM ER IN STABLE CONDITION AOX4, NO SIGNS OF DISTRESS NOTED. IV FLUIDS ARE RUNNING AT ORDERED RATE AND PATIENT VOICES PAIN AT A LEVEL OF 7 AND WAS MEDICATED ORDERED. TELEMONITOR IS IN PLACE AND RUNNING AT SINUS RHYTHM AND PATIENT IS RESTING COMFORTABLY. BED IS IN LOWEST POSITION, BOTH SIDE RAILS ARE UP, CALL LIGHT IS WITHIN EASY REACH, WILL CONTINUE TO MONITOR.
[2019-07-14] MEDS: MORPHINE SULFATE INJ 4 MG/ML INJ 1ML IV PRN ×3 (01:09→20:06)
[2019-07-14] MEDS: METHYLPREDNISOLONE SOD SUCC 40 MG/ML VIAL 1ML IV SCH ×4 (01:09→20:04)
[2019-07-14] MEDS: SODIUM CHLORIDE 0.9% 1000ML 1,000 ML IV SCH ×2 (03:45→15:17)
[2019-07-14 06:16] LABS: BASOPHILS % 0.2 % (0.0-1.0); HEMATOCRIT 38.7 % (34.2-44.1); HEMOGLOBIN 12.4 g/dL (12.0-16.0); LYMPHOCYTES # (AUTO) 0.6 (1.0-3.2); LYMPHOCYTES % 11.6 % (18.0-39.1); MEAN CORPUSCULAR HEMOGLOBIN 28.6 pg (28-32); MEAN CORPUSCULAR VOLUME 89.4 fL (81-99); MONOCYTES % 0.8 % (4.4-11.3); NEUTROPHILS # (AUTO) 4.3 (2.1-6.9); NEUTROPHILS % 86.8 % (38.7-80.0); PLATELET COUNT 231 x10e3/uL (140-360); RED BLOOD COUNT 4.33 x10e6/uL (3.6-5.1); RED CELL DISTRIBUTION WIDTH 13.1 % (11.7-14.4)
[2019-07-14 06:45] LABS: ALANINE AMINOTRANSFERASE 18 IU/L (0-55); ALBUMIN 3.4 g/dL (3.5-5.0); ALBUMIN/GLOBULIN RATIO 1.1 (0.8-2.0); ALKALINE PHOSPHATASE 69 IU/L (40-150); ANION GAP 12.5 mmol/L (8-16); BLOOD UREA NITROGEN 25 mg/dL (7-26); BUN/CREATININE RATIO 28 (6-25); CALCIUM 8.6 mg/dL (8.4-10.2); CARBON DIOXIDE 27 mmol/L (22-29); CHLORIDE 103 mmol/L (98-107); CREATININE, SERUM 0.89 mg/dL (0.57-1.11); EST GLOMERULAR FILTRATION RATE > 60 ML/MIN (60-); GLUCOSE 172 mg/dL (74-118); POTASSIUM 3.5 mmol/L (3.5-5.1); SODIUM 139 mmol/L (136-145)
--- NOTE | 2019-07-14 07:00 | NUR ---
received bedside report. pt is alert resting in bed, no s/s of distress. call light within reach and instructed pt to call RN for help. Dr. Peralta is rounding and putting in orders
[2019-07-14 07:04] LABS: CREATINE KINASE MB 0.7 ng/mL (0-5.0)
[2019-07-14 08:00] LABS: FREE THYROXINE INDEX 3.124 (1.4-3.8); THYROID STIMULATING HORMONE 0.399 uIU/mL (0.350-4.940)
[2019-07-14] MEDS: BUDESONIDE/FORMOTEROL 160/4.5MCG INHALER INH SCH ×2 (08:30→20:20)
[2019-07-14] MEDS: HYDROCODONE/APAP 10MG-325MG TAB PO PRN ×3 (08:45→23:55)
[2019-07-14] MEDS ORDERED: THERACRAN650 MG PO (08:57)
[2019-07-14] MEDS: LEVOTHYROXINE SODIUM 75 MCG TAB PO SCH (08:57)
[2019-07-14] MEDS: GABAPENTIN 300 MG CAP PO SCH ×3 (08:57→20:04)
[2019-07-14] MEDS ORDERED: METHENAMINE HIPP1 GM PO (08:57)
[2019-07-14] MEDS: METOPROLOL SUCCINATE 50 MG TAB XL PO SCH ×2 (08:58→17:10)
[2019-07-14] MEDS ORDERED: FLUOXETINE HCL 20 MG CAP PO SCH (09:00)
[2019-07-14] MEDS ORDERED: MAGNESIUM OXIDE 400 MG TAB PO SCH (09:00)
[2019-07-14] MEDS ORDERED: GABAPENTIN 300 MG CAP PO SCH (09:00)
[2019-07-14] MEDS ORDERED: CLOPIDOGREL BISULFATE 75 MG TAB PO SCH (09:00)
[2019-07-14] MEDS: POTASSIUM GLUCONATE PO SCH ×2 (09:00→16:55)
[2019-07-14] MEDS ORDERED: FOLIC ACID 1 MG TAB PO SCH (09:00)
[2019-07-14] MEDS ORDERED: PANTOPRAZOLE SOD 40 MG TABEC PO SCH (09:00)
--- NOTE | 2019-07-14 09:56 | Diagnostic Imaging Report ---
EXAMINATION: CHEST SINGLE (PORTABLE) INDICATION: Hypotension COMPARISON: Chest radiograph 02/17/2019 FINDINGS: LINES/TUBES:None LUNGS:The lungs are well-inflated. No focal consolidation or pulmonary edema. PLEURA:No pleural effusion or pneumothorax. MEDIASTINUM:The heart is not enlarged. Atherosclerotic calcifications of the tortuous thoracic aorta. BONES/SOFT TISSUES:No acute osseous injury. ABDOMEN:No free air under the diaphragm. IMPRESSION: No focal pneumonia or pulmonary edema. Signed by: Sintia Azul MD on 07/14/2019 9:51 AM
--- NOTE | 2019-07-14 10:13 | History and Physical ---
CHIEF COMPLAINT: This is a 69-year-old female who came with hypertension and dizziness. HISTORY OF PRESENTING ILLNESS: This is . Catalina Woods, who has been seen in the clinic about a week ago, was taken off some of her medication half a dose of her amlodipine and restarted back on metoprolol. However, the patient still felt weak and we will call the office and the patient was asked to come to the emergency room because of hypertensive episode. Here, she is admitted for hypertension and also for dizziness. PAST MEDICAL HISTORY: History of multiple back surgeries, history of hypertension, history of hyperlipidemia, history of coronary artery disease, history of reflux esophagitis, history of chronic pain, history of depression, and history of nausea and vomiting with reflux esophagitis. MEDICATIONS: She takes at home amlodipine besylate and hydrochlorothiazide combination, clopidogrel 75 mg, levothyroxine, pantoprazole, magnesium oxide, gabapentin 600 mg twice a day, and methenamine hippurate for her chronic UTIs. She also takes fluoxetine at nighttime, potassium chloride, magnesium oxide, and biol-sjh-pnpxjwn medications. Also, the patient also takes hydrocodone, cyclobenzaprine, fluconazole and Zofran as needed. She takes also TheraCare vkfz-grq-khbgbeq. PAST SURGICAL HISTORY: The patient has multiple back surgeries, a PICC line, bilateral knee surgeries, spinal fusion, right hip replacement, and breast augmentation. SOCIAL HISTORY: No EtOH. No IV drug abuse. No history of smoking. FAMILY HISTORY: Positive for hypertension, diabetes, and coronary disease. REVIEW OF SYSTEMS: Negative for chest pain. No shortness of breath. No nausea, vomiting, or diarrhea. No constipation. No rectal bleeding. Positive for dizziness. No diplopia. No blurry vision and no other symptoms. ALLERGIES: ALLERGIC IS SULFONAMIDE ANTIBIOTICS. PHYSICAL EXAMINATION: VITAL SIGNS: On arrival, the patient's temperature is 97.8, pulse of 69, respirations of 18, blood pressure is 87/58. HEENT: Normocephalic, atraumatic. Pupils are reactive to light and accommodation. CVS: S1 and S2 normal. Regular rate and rhythm. ABDOMEN: Nontender and nondistended. EXTREMITIES: No clubbing, no cyanosis. Positive for trace edema. Tenderness in the lumbar spine and also on the hip present. SKIN: Normal and dry. NEUROLOGIC: DTRs x3. LABORATORY VALUES: White count is 8.59, hemoglobin of 12.4. Chemistry shows sodium 138, potassium of 4.2, creatinine is 1.37 and BUN is 31. Microbiology was normal. Blood cultures are pending. IMAGING STUDIES: Chest x-ray was done, was within normal limits. ASSESSMENT: Ms. Catalina Woods with: 1. Hypotension, possibly orthostatic. 2. Dehydration and acute kidney injury. Continue hydration. 3. History of low back pain. We will restart home medications, scale back on the gabapentin, it could cause dizziness 300 mg 3 times a day will be done. We will also support on metoprolol up to 50 mg twice a day and continue with half of an amlodipine without the diuretic in it. PLAN: Further recommendation per clinical course. We will also do orthostatic hypotension for the patient. The patient can be discharged in the evening if the blood pressure is stabilized and if its symptoms are better. Further recommendation per clinical course. Postdischarge, the patient needs to be seen Dr. Verduzco, primary care physician. MD MARINA Santiago/MODL /[id number]
--- NOTE | 2019-07-14 11:30 | NUR ---
urine specimen was taken to lab by RN for culture
--- NOTE | 2019-07-14 12:46 | NUR ---
Discontinuing PT services since patient is Mod I in functional mobility. Thank you Addendum: 07/14/19 at 1246 by Martín finnegan PT Amended: Links added.
[2019-07-14 14:39] LABS: CREATINE KINASE MB 0.9 ng/mL (0-5.0)
[2019-07-14] MEDS ORDERED: ONDANSETRON HCL INJ 2MG/ML 2ML 2 MG/ML VIAL IV PRN (17:15)
[2019-07-14] MEDS ORDERED: CEFTRIAXONE SOD 1 GM/NS 50 ML 50 ML IV ONE (17:15)
[2019-07-14] MEDS ORDERED: PHENAZOPYRIDINE HCL 100 MG TAB PO SCH (18:00)
--- NOTE | 2019-07-14 19:32 | NUR ---
RECEIVED REPORT FROM PREVIOUS NURSE. CALL LIGHT WITHIN REACH. PATIENT IN BED.
[2019-07-14] MEDS: AMLODIPINE BESYLATE 5 MG TAB PO SCH ×2 (20:04→21:00)
--- NOTE | 2019-07-14 23:21 | Consultation ---
DATE OF CONSULTATION: 07/14/2019 Cardiology Consultation REASON FOR CONSULTATION: Hypotension. HISTORY OF PRESENT ILLNESS: A 69-year-old woman with history of hypothyroidism, hypertension, neuropathy, rheumatoid arthritis, presents with complaints of lightheadedness and hypotension with systolic blood pressure reportedly in the 60s. She was admitted for further evaluation and hydration. She also complains of diffuse arthralgias, most prominent to the shoulders, knees, and ankle. She denies any chest discomfort or shortness of breath. Lightheadedness has been gradually improving on diuretics. She has no other complaints at this time. REVIEW OF SYSTEMS: A 12-system review negative except for as noted above. ALLERGIES: SULFA. PAST MEDICAL HISTORY: As per HPI. SOCIAL HISTORY: Denies smoking, alcohol, or drugs. FAMILY HISTORY: Noncontributory. PHYSICAL EXAMINATION: VITAL SIGNS: Temperature 96 degrees, heart rate 84, blood pressure 161/81, respiratory rate 18, O2 saturation 95%. BMI 34. General: In no acute distress. Alert. NECK: No JVD. CHEST: Clear to auscultation. CARDIOVASCULAR: Regular rate and rhythm. Normal S1, S2. No S3, no S4. No murmurs, no rubs. ABDOMEN: Soft. Bowel sounds positive. EXTREMITIES: No cyanosis, clubbing, or edema. CARDIOVASCULAR MEDICATIONS: Reviewed. Amlodipine 5 mg at bedtime, IV fluids running, metoprolol succinate 50 mg b.i.d., methylprednisone 40 mg t.i.d., clopidogrel 75 mg daily. STUDIES: Reviewed. Creatinine is 0.89. The potassium was 3.5. The bicarbonate is 27. Sodium 139. White blood cells 4.9, hemoglobin 12.4, platelets 213. INR 0.9. AST 21, ALT 28. ASSESSMENT AND PLAN: A 69-year-old woman presents with: 1. Hypotension, symptomatic and suspected volume depletion. 2. Rheumatoid arthritis with arthralgias reported. 3. Hypertension. 4. Hypothyroidism. 5. History of asthma. 6. History of transient ischemic attack. 7. Reported history of mitral valve prolapse. RECOMMENDATIONS: 1. Agree with hydration. 2. Liberalized antihypertensive therapy as needed. 3. Given reported history of TIA, continue clopidogrel, statin therapy is advised. 4. Echocardiogram ordered. We will review. 5. Keep on telemetry while in-house. I thank, Dr. Peralta and Dr. Verduzco, for the opportunity to participate in the care of this patient. MD BLANCA Box/CLEM /[id number]
[2019-07-15] VITALS: BP 137/60
[2019-07-15] MEDS: METHYLPREDNISOLONE SOD SUCC 40 MG/ML VIAL 1ML IV SCH (02:26)
[2019-07-15] MEDS: SODIUM CHLORIDE 0.9% 1000ML 1,000 ML IV SCH (02:26)
[2019-07-15 04:00] VITALS: BP 139/77
[2019-07-15 06:14] LABS: BLOOD UREA NITROGEN 20 mg/dL (7-26); BUN/CREATININE RATIO 25 (6-25); CALCIUM 8.6 mg/dL (8.4-10.2); CARBON DIOXIDE 25 mmol/L (22-29); CHLORIDE 106 mmol/L (98-107); CREATININE, SERUM 0.79 mg/dL (0.57-1.11); EST GLOMERULAR FILTRATION RATE > 60 ML/MIN (60-); GLUCOSE 180 mg/dL (74-118); SODIUM 141 mmol/L (136-145)
--- NOTE | 2019-07-15 07:00 | NUR ---
received bedside report. pt is alert resting in bed, no s/s of distress. call light within reach and instructed pt to call RN for help. Dr. Peralta made rounds and is putting in discharge orders
--- NOTE | 2019-07-15 07:16 | NUR ---
GAVE BEDSIDE SHIFT REPORT TO KRISTI PHILLIP. CALL LIGHT WITHIN REACH. PATIENT IN BED. AT BEDSIDE Addendum: 07/15/19 at 0720 by Pamella Mensah RN IGNORE THE PART
[2019-07-15] MEDS: BUDESONIDE/FORMOTEROL 160/4.5MCG INHALER INH SCH (07:43)
[2019-07-15] MEDS: LEVOTHYROXINE SODIUM 75 MCG TAB PO SCH (07:45)
[2019-07-15] MEDS: HYDROCODONE/APAP 10MG-325MG TAB PO PRN (07:45)
--- NOTE | 2019-07-15 07:48 | Progress Note ---
DATE: SUBJECTIVE: This is a 69-year-old lady with a history of hypertension, who came in with orthostasis, dehydration, acute renal failure and UTI. The patient is currently feeling better, hydration is given, orthostatics done. The patient is on Deejay hoses. No chest pain or shortness of breath, can be discharged home today. OBJECTIVE: VITAL SIGNS: Temperature is 98.6, pulse of 82, respirations of 20, blood pressure is 137/60, pulse oximetry of 94% on room air. HEENT: Normocephalic and atraumatic. Pupils are reactive to light and accommodation. CVS: S1 and S2 normal. Regular rate and rhythm. ABDOMEN: Nontender, nondistended. EXTREMITIES: No clubbing, no cyanosis, no edema. LABORATORY VALUES: Chemistries show sodium 141, potassium 4.0, BUN and creatinine normalized 20 and 0.79. Troponin has been trended to be negative. Coags are normal. Microbiology; no growth in blood cultures. Urine culture is still pending. ASSESSMENT: 1. Ms. Catalina Woods with hypertension. Continue with volume revision. The patient is asked to drink ample water. 2. Rheumatoid arthritis. 3. History of hypertension and orthostasis. PLAN: 1. Continue to monitor the patient. 2. Continue on statins, clopidogrel for the history of TIAs. 3. Continue to monitor the patient. 4. Further recommendation per clinical course. We can discharge the patient today and follow up with Cardiology and primary care physician as an outpatient. MD MARINA Santiago/TITIL /[id number]
[2019-07-15 08:00] VITALS: BP 131/71
[2019-07-15] MEDS ORDERED: ONDANSETRON HCL 4 MG ORAL DISINTEGRATING TAB PO PRN (08:15)
[2019-07-15] MEDS: METOPROLOL SUCCINATE 50 MG TAB XL PO SCH (08:33)
[2019-07-15 08:38] VITALS: BP 131/71
== END 2019-07-15 09:26 | disposition home or self-care (01) ==
LOC: ER 17:51 → ERHOLD 19:44 → MED/SURG3 22:51
PROVIDERS: ADMIT Family Medicine; ATTEND Family Medicine
DX: I95.9 Hypotension, unspecified (principal); I10 Essential (primary) hypertension; E86.0 Dehydration; N17.9 Acute kidney failure, unspecified; N39.0 Urinary tract infection, site not specified; Z11.59 Encounter for screening for other viral diseases; M06.9 Rheumatoid arthritis, unspecified; Z86.73 Personal history of transient ischemic attack (TIA), and cerebral infarction without residual deficits; D64.9 Anemia, unspecified; Z09 Encounter for follow-up examination after completed treatment for conditions other than malignant neoplasm; Z87.440 Personal history of urinary (tract) infections; Z87.898 Personal history of other specified conditions; R73.9 Hyperglycemia, unspecified; Z96.641 Presence of right artificial hip joint; E03.9 Hypothyroidism, unspecified; G62.9 Polyneuropathy, unspecified; J45.909 Unspecified asthma, uncomplicated; Z88.2 Allergy status to sulfonamides; M54.5 Low back pain
CPT/HCPCS: 36415 ×3; 71045; 80048; 80053 ×2; 82550 ×2; 82553 ×2; 83605 ×2; 84436; 84443; 84479; 84484 ×2; 85025 ×2; 85610; 85730; 87040; 87086; 87635; 93005; 93306; 94664; 97116; 97139; 97161; 99284; G0378 ×3; J0610; J0696; J1610; J2270 ×2; J2405; J2920 ×3; J7030 ×2; S0164

== ENCOUNTER 2019-09-29 17:05 | Observation (INO) | payer MEDICARE, OTHER ==
[~2019-09-29] VITALS: Ht 170.2 cm; Wt 99.8 kg
[~2019-09-29 17:05] MED LIST changes: +METHENAMINE HIPP1 GM PO; +THERACRAN650 MG PO
[2019-09-29 17:58] LABS: BASOPHILS % 0.4 % (0.0-1.0); EOSINOPHILS # (AUTO) 0.3 (0.0-0.4); EOSINOPHILS % 3.5 % (0.0-6.0); HEMATOCRIT 43.3 % (34.2-44.1); HEMOGLOBIN 13.9 g/dL (12.0-16.0); LYMPHOCYTES # (AUTO) 1.4 (1.0-3.2); LYMPHOCYTES % 19.4 % (18.0-39.1); MEAN CORPUSCULAR HEMOGLOBIN 28.7 pg (28-32); MEAN CORPUSCULAR HGB CONC 32.1 g/dL (31-35); MEAN CORPUSCULAR VOLUME 89.5 fL (81-99); MONOCYTES # (AUTO) 0.7 (0.2-0.8); MONOCYTES % 9.3 % (4.4-11.3); NEUTROPHILS # (AUTO) 4.9 (2.1-6.9); NEUTROPHILS % 66.5 % (38.7-80.0); PLATELET COUNT 289 x10e3/uL (140-360); RED BLOOD COUNT 4.84 x10e6/uL (3.6-5.1); RED CELL DISTRIBUTION WIDTH 12.8 % (11.7-14.4)
[2019-09-29 18:07] LABS: INR 0.91; PROTHROMBIN TIME 12.7 seconds (11.9-14.5)
[2019-09-29 18:08] LABS: PARTIAL THROMBOPLASTIN TIME 38.1 seconds (23.8-35.5)
[2019-09-29 18:17] LABS: ALBUMIN 3.8 g/dL (3.5-5.0); CALCIUM 9.6 mg/dL (8.4-10.2); CREATININE, SERUM 1.08 mg/dL (0.57-1.11)
[2019-09-29 18:23] LABS: CREATINE KINASE MB 0.4 ng/mL (0-5.0)
[2019-09-29] MEDS ORDERED: HYDROCODONE/APAP 10MG-325MG TAB PO ONE (18:30)
--- NOTE | 2019-09-29 18:37 | Emergency Department Note ---
History of Present Illnes History of Present Illness Chief Complaint: Chest Pain History of Present Illness This is a 69 year old female states she has hx of uti's under care of dr salguero for uti's not feeling good today went to see pcp for dysuria/hematuria and back pain then started c/o midsternal cp radiating to left chest and more sob than usual hx of copd states she vapes.. Historian: Patient Arrival Mode: Car Onset (how long ago): hour(s) (2) Location: CHEST Quality: PAIN Radiation: Reports other (LEFT SHOULDER) Severity: moderate Onset quality: sudden Duration (how long): hour(s) (2) Progression: resolved Context: Denies recent illness, Denies recent surgery Relieving factors: none Exacerbating factors: none Associated symptoms: Reports other (dysuria worried she has a uti) Past Medical/Family History Physician Review I have reviewed the patient's past medical and family history. Any updates have been documented here. Past Medical History Recent Fever: No Clinical Suspicion of Infectio: Yes New/Unexplained Change in Ment: No Past Medical History: Hypertension, COPD, CVA, Hypothyroidism, Cancer, UTI's, Hyperlipedemia Other Medical History: HYPOGLYCEMIA UTERINE CANCER murmur Past Surgical History: Appendectomy, Hysterectomy, T&A, Hip Replacement, Back Surgery Other Surgery: BREAST AUGMENTATION, SPINAL FUSION, RT HIP REPLACEMENT, BILATERAL KNEE Social History Smoking Cessation: Never Smoker Counseling Performed: No Alcohol Use: None Any Illegal Drug Use: No Physically hurt or threatened: No Other Last Tetanus: UNK Any Pre-Existing Lines (PICC,: No Review of Systems Review of Systems Constitutional: Reports no symptoms EENTM: Reports no symptoms Cardiovascular: Reports as per HPI Respiratory: Reports no symptoms Gastrointestinal: Reports no symptoms Genitourinary: Reports as per HPI Musculoskeletal: Reports no symptoms Integumentary: Reports no symptoms Neurological: Reports no symptoms Psychological: Reports no symptoms Endocrine: Reports no symptoms Hematological/Lymphatic: Reports no symptoms Physical Exam Related Data Allergies: Coded Allergies: Sulfa (Sulfonamide Antibiotics) (Verified Allergy, Unknown, 07/13/19) Triage Vital Signs Vital Signs Date Time Temp Pulse Resp B/P (MAP) Pulse Ox O2 Delivery O2 Flow Rate FiO2 09/29/19 17:17 98.1 68 18 136/91 100 Room Air Vital signs reviewed: Yes Physical Exam CONSTITUTIONAL Constitutional: Present well-developed, Present well-nourished HENT HENT: Present normocephalic, Present atraumatic, Present oropharynx clear/moist, Present nose normal HENT L/R: Present left ext ear normal, Present right ext ear normal EYES Eyes: Reports PERRL, Reports conjunctivae normal NECK Neck: Present ROM normal PULMONARY Pulmonary: Present effort normal, Present breath sounds normal CARDIOVASCULAR Cardiovascular: Present regular rhythm, Present heart sounds normal, Present capillary refill normal, Present normal rate GASTROINTESTINAL Abdominal: Present soft, Present bowel sounds normal, Present tender (mild suprapubic); Absent left CVA tenderness, Absent right CVA tenderness GENITOURINARY Genitourinary: Present exam deferred SKIN Skin: Present warm, Present dry MUSCULOSKELETAL Musculoskeletal: Present ROM normal NEUROLOGICAL Neurological: Present alert, Present oriented x 3, Present no gross motor or sensory deficits PSYCHOLOGICAL Psychological: Present mood/affect normal, Present judgement normal Results Laboratory Result Diagram: 09/29/19 1721 09/29/19 1721 Laboratory Laboratory Tests Test 09/29/19 17:21 White Blood Count 7.42 x10e3/uL (4.8-10.8) Red Blood Count 4.84 x10e6/uL (3.6-5.1) Hemoglobin 13.9 g/dL (12.0-16.0) Hematocrit 43.3 % (34.2-44.1) Mean Corpuscular Volume 89.5 fL (81-99) Mean Corpuscular Hemoglobin 28.7 pg (28-32) Mean Corpuscular Hemoglobin Concent 32.1 g/dL (31-35) Red Cell Distribution Width 12.8 % (11.7-14.4) Platelet Count 289 x10e3/uL (140-360) Neutrophils (%) (Auto) 66.5 % (38.7-80.0) Lymphocytes (%) (Auto) 19.4 % (18.0-39.1) Monocytes (%) (Auto) 9.3 % (4.4-11.3) Eosinophils (%) (Auto) 3.5 % (0.0-6.0) Basophils (%) (Auto) 0.4 % (0.0-1.0) Neutrophils # (Auto) 4.9 (2.1-6.9) Lymphocytes # (Auto) 1.4 (1.0-3.2) Monocytes # (Auto) 0.7 (0.2-0.8) Eosinophils # (Auto) 0.3 (0.0-0.4) Basophils # (Auto) 0.0 (0.0-0.1) Absolute Immature Granulocyte (auto 0.07 x10e3/uL (0-0.1) Prothrombin Time 12.7 seconds (11.9-14.5) Prothromb Time International Ratio 0.91 Activated Partial Thromboplast Time 38.1 seconds (23.8-35.5) Urine Color Yellow (YELLOW) Urine Clarity Sl cloudy (CLEAR) Urine pH 6 (5 - 7) Urine Specific [place] 1.025 (1.010-1.025) Urine Protein Trace (NEGATIVE) Urine Glucose (UA) Negative (NEGATIVE) Urine Ketones Negative (NEGATIVE) Urine Blood Negative (NEGATIVE) Urine Nitrite Positive (NEGATIVE) Urine Bilirubin Negative (NEGATIVE) Urine Urobilinogen 0.2 mg/dL (0.2 - 1) Urine Leukocyte Esterase Moderate (NEGATIVE) Urine RBC None /HPF (0-5) Urine WBC 11-20 /HPF (0-5) Urine Epithelial Cells Many /LPF (NONE) Urine Transitional Epithelial Cells Moderate (NONE) Urine Bacteria Many /HPF (NONE) Sodium Level 139 mmol/L (136-145) Potassium Level 5.0 mmol/L (3.5-5.1) Chloride Level 101 mmol/L (98-107) Carbon Dioxide Level 27 mmol/L (22-29) Anion Gap 16.0 mmol/L (8-16) Blood Urea Nitrogen 18 mg/dL (7-26) Creatinine 1.08 mg/dL (0.57-1.11) Estimat Glomerular Filtration Rate 50 ML/MIN (60-) BUN/Creatinine Ratio 17 (6-25) Glucose Level 89 mg/dL (74-118) Calcium Level 9.6 mg/dL (8.4-10.2) Total Bilirubin 0.4 mg/dL (0.2-1.2) Aspartate Amino Transf (AST/SGOT) 25 IU/L (5-34) Alanine Aminotransferase (ALT/SGPT) 15 IU/L (0-55) Alkaline Phosphatase 91 IU/L (40-150) Creatine Kinase 34 IU/L (29-168) Creatine Kinase MB 0.40 ng/mL (0-5.0) Troponin I 0.011 ng/mL (0-0.300) B-Type Natriuretic Peptide 29.4 pg/mL (0-100) Total Protein 7.7 g/dL (6.5-8.1) Albumin 3.8 g/dL (3.5-5.0) Globulin 3.9 g/dL (2.3-3.5) Albumin/Globulin Ratio 1.0 (0.8-2.0) Laboratory Tests Test 09/29/19 17:21 White Blood Count 7.42 x10e3/uL (4.8-10.8) Red Blood Count 4.84 x10e6/uL (3.6-5.1) Hemoglobin 13.9 g/dL (12.0-16.0) Hematocrit 43.3 % (34.2-44.1) Mean Corpuscular Volume 89.5 fL (81-99) Mean Corpuscular Hemoglobin 28.7 pg (28-32) Mean Corpuscular Hemoglobin Concent 32.1 g/dL (31-35) Red Cell Distribution Width 12.8 % (11.7-14.4) Platelet Count 289 x10e3/uL (140-360) Neutrophils (%) (Auto) 66.5 % (38.7-80.0) Lymphocytes (%) (Auto) 19.4 % (18.0-39.1) Monocytes (%) (Auto) 9.3 % (4.4-11.3) Eosinophils (%) (Auto) 3.5 % (0.0-6.0) Basophils (%) (Auto) 0.4 % (0.0-1.0) Neutrophils # (Auto) 4.9 (2.1-6.9) Lymphocytes # (Auto) 1.4 (1.0-3.2) Monocytes # (Auto) 0.7 (0.2-0.8) Eosinophils # (Auto) 0.3 (0.0-0.4) Basophils # (Auto) 0.0 (0.0-0.1) Absolute Immature Granulocyte (auto 0.07 x10e3/uL (0-0.1) Prothrombin Time 12.7 seconds (11.9-14.5) Prothromb Time International Ratio 0.91 Activated Partial Thromboplast Time 38.1 seconds (23.8-35.5) Sodium Level 139 mmol/L (136-145) Potassium Level 5.0 mmol/L (3.5-5.1) Chloride Level 101 mmol/L (98-107) Carbon Dioxide Level 27 mmol/L (22-29) Anion Gap 16.0 mmol/L (8-16) Blood Urea Nitrogen 18 mg/dL (7-26) Creatinine 1.08 mg/dL (0.57-1.11) Estimat Glomerular Filtration Rate 50 ML/MIN (60-) BUN/Creatinine Ratio 17 (6-25) Glucose Level 89 mg/dL (74-118) Calcium Level 9.6 mg/dL (8.4-10.2) Total Bilirubin 0.4 mg/dL (0.2-1.2) Aspartate Amino Transf (AST/SGOT) 25 IU/L (5-34) Alanine Aminotransferase (ALT/SGPT) 15 IU/L (0-55) Alkaline Phosphatase 91 IU/L (40-150) Creatine Kinase 34 IU/L (29-168) Creatine Kinase MB 0.40 ng/mL (0-5.0) Troponin I 0.011 ng/mL (0-0.300) B-Type Natriuretic Peptide 29.4 pg/mL (0-100) Total Protein 7.7 g/dL (6.5-8.1) Albumin 3.8 g/dL (3.5-5.0) Globulin 3.9 g/dL (2.3-3.5) Albumin/Globulin Ratio 1.0 (0.8-2.0) Lab results reviewed: Yes Imaging Imaging results reviewed: Yes Impressions Procedure: [id number] DX/CHEST SINGLE (PORTABLE) Exam Date: 09/29/19 Exam Time: 1800 REPORT STATUS: Signed EXAMINATION: CHEST SINGLE (PORTABLE) INDICATION: Chest pain COMPARISON: Multiple prior chest radiograph including most recent on 02/17/2019. FINDINGS: TUBES and LINES: None. LUNGS: Low lung volumes with hazy opacification of bilateral lung bases. PLEURA: No pleural effusion or pneumothorax. HEART AND MEDIASTINUM: The cardiomediastinal silhouette is unremarkable. BONES AND SOFT TISSUES: No acute osseous lesion. Soft tissues are unremarkable. UPPER ABDOMEN: No free air under the diaphragm. IMPRESSION: Low lung volumes with hazy opacification the bilateral lung bases. This likely represents atelectasis and/or pneumonia in the proper clinical setting. Signed by: Edilson Warren MD on 09/29/2019 6:52 PM Dictated By: EDILSON WARREN MD 51 Transcribed By: CATHERINE on 09/29/191851 Procedures 12 Lead ECG Interpretation ECG Interpretation : ECG: ECG 1 [place]: Interpreted by ED physician Date: Sep 29, 2019 Time: 18:00 Rhythm: sinus rhythm Rate: normal BPM: 66 QRS axis: normal ST segments normal: No (non specific changes) T waves normal: No (non specific changes) T wave inversion: III T waves flattening: V2, V3, V4 Other findings: LVH Q waves: V1 Assessment & Plan Medical Decision Making MDM pt with chest pain starting about 2 hours ago, also with urinary symptoms cbc, cmp, ekg, cardiac enzymes, cxr, ua, ordered to eval for myocardial infarction, electrolyte abnormality, pneumonia, uti, hematuria, i spoke to dr araiza, dr vita hobson and dr salguero admit inpatient Assessment & Plan Final Impression: (1) Chest pain (2) UTI (urinary tract infection) (3) History of infection due to ESBL Escherichia coli Depart Disposition: ADMITTED Last Vital Signs Date Time Temp Pulse Resp B/P (MAP) Pulse Ox O2 Delivery O2 Flow Rate FiO2 09/29/19 18:23 75 14 137/85 97 Room Air 09/29/19 17:17 98.1 Home Meds Reported Medications Cranberry Extract (THERACRAN) 650 Mg Capsule, 360 MG PO DAILY@1700 07/14/19 Methenamine Hippurate (METHENAMINE HIPPURATE) 1 Gm Tablet, 1 G PO BID 07/14/19 Fluoxetine Hcl (PROZAC) 20 Mg Capsule, 20 MG DAILY, #30 TAB 02/16/19 Rosuvastatin Calcium (CRESTOR) 10 Mg Tab THERAPEUTICALLY SUBSTITUTED WITH SIMVASTATIN 40MG 02/16/19 Rosuvastatin Calcium (CRESTOR) 10 Mg Tab THERAPEUTICALLY SUBSTITUTED WITH SIMVASTATIN 40MG 02/16/19 Metoprolol Succinate (METOPROLOL SUCCINATE) 50 Mg Tab.er.24h, 100 MG PO DAILY, MG 02/16/19 Gabapentin (GABAPENTIN) 300 Mg Capsule, 300 MG PO BID, #60 CAP 02/16/19 Potassium Chloride (POTASSIUM CHLORIDE) 10 Meq Tab.er.prt, 10 MEQ PO, TAB 02/16/19 Magnesium Oxide (MAGNESIUM OXIDE) 400 Mg Tablet, 400 MG PO DAILY, TAB 02/16/19 Pantoprazole Sodium* (PROTONIX) 40 Mg Tablet.dr, 40 02/16/19 Levothyroxine Sodium (LEVOTHYROXINE SODIUM) 150 Mcg Tablet, 150 02/16/19 Clopidogrel Bisulfate (CLOPIDOGREL) 75 Mg Tablet, 75 02/16/19 Gabapentin (NEURONTIN) 300 Mg Capsule, 1 EACH PO HS 11/25/13 Temazepam (TEMAZEPAM) 15 Mg Capsule, 1 EACH PO HS 11/25/13 Levothyroxine Sodium (LEVOXYL) 50 Mcg Tablet, 1 EACH PO 11/25/13 Simvastatin (SIMVASTATIN) 20 Mg Tablet, 1 EACH PO HS 11/25/13 Omeprazole (PRILOSEC) 20 Mg Capsule.dr, 1 EACH PO BID 11/25/13 Amlodipine Besylate (AMLODIPINE BESYLATE) 10 Mg Tablet, 10 MG PO HS, #30 TAB 11/25/13 Potassium Gluconate (POTASSIUM) 99 Mg Tablet, 1 EACH PO BID 11/25/13 Mirtazapine (MIRTAZAPINE) 7.5 Mg Tablet, 1 EACH PO HS 11/25/13 Fluoxetine Hcl (PROZAC) 20 Mg Capsule, 20 MG PO BID, #30 TAB 11/25/13 Magnesium Oxide (MAGNESIUM OXIDE) 400 Mg Tablet, 400 MG PO DAILY, TAB 11/25/13 Folic Acid (FOLIC ACID) 1 Mg Tablet, 1 MG PO DAILY, #30 TAB 11/25/13 Metoprolol Succinate (TOPROL XL) 25 Mg Tab.er.24h, 25 25/100 PO DAILY, #30 TAB 11/25/13 Budesonide/Formoterol Fumarate (SYMBICORT 160-4.5 MCG INHALER) 10.2 Gm Hfa.aer.ad, 2 INH INH BID 05/18/12 Medications in the ED Acetaminophen/ Hydrocodone Bitart 1 ea ONCE ONCE PO ; Start 09/29/19 at 18:30; Stop 09/29/19 at 18:31; Status UNSIDRA JOHNSON MD Sep 29, 2019 18:37
[2019-09-29 18:47] LABS: BILIRUBIN,URINE NEGATIVE (NEGATIVE); CLARITY,URINE SL CLOUDY (CLEAR); COLOR,URINE YELLOW (YELLOW); KETONES,URINE NEGATIVE (NEGATIVE); LEUKOCYTE ESTERASE ,URINE MODERATE (NEGATIVE); NITRITE,URINE POSITIVE (NEGATIVE); PROTEIN,URINE DIPSTICK TRACE (NEGATIVE); URINE UROBILINOGEN 0.2 mg/dL (0.2 - 1)
--- NOTE | 2019-09-29 18:51 | NUR ---
REPORT RECIEVED FROM ANGELA CARTER
--- NOTE | 2019-09-29 18:55 | Diagnostic Imaging Report ---
EXAMINATION: CHEST SINGLE (PORTABLE) INDICATION: Chest pain COMPARISON: Multiple prior chest radiograph including most recent on 02/17/2019. FINDINGS: TUBES and LINES: None. LUNGS: Low lung volumes with hazy opacification of bilateral lung bases. PLEURA: No pleural effusion or pneumothorax. HEART AND MEDIASTINUM: The cardiomediastinal silhouette is unremarkable. BONES AND SOFT TISSUES: No acute osseous lesion. Soft tissues are unremarkable. UPPER ABDOMEN: No free air under the diaphragm. IMPRESSION: Low lung volumes with hazy opacification the bilateral lung bases. This likely represents atelectasis and/or pneumonia in the proper clinical setting. Signed by: Mychal Zavala MD on 09/29/2019 6:52 PM
[2019-09-29 19:05] LABS: BACTERIA,URINE MANY /HPF; EPITHELIAL CELLS,URINE MANY /LPF; TRANSITIONAL EPI CELLS,URINE MODERATE
[2019-09-29] MEDS ORDERED: SODIUM CHLORIDE FLUSH 10 ML SYR INJ PRN (19:45)
[2019-09-29] MEDS ORDERED: NITROGLYCERIN 0.4 MG SUBL SL PRN (19:45)
[2019-09-29] MEDS ORDERED: MEROPENEM 500MG/ NS 50ML 50 ML IV SCH (20:00)
[2019-09-29 21:40] VITALS: BP 124/79
[2019-09-29] MEDS ORDERED: XANAX0.5 MG PO (22:28)
[2019-09-29] MEDS ORDERED: NORCO 10-325 T1 EACH PO (22:32)
[2019-09-29] MEDS ORDERED: SODIUM CHLORIDE 0.9% 250ML 250 ML ONE (22:49)
[2019-09-29] MEDS: ONDANSETRON HCL INJ 2MG/ML 2ML 2 MG/ML VIAL IV PRN (23:02)
[2019-09-29] MEDS: MORPHINE SULFATE 2 MG/ML SYR 1ML IV PRN (23:02)
[2019-09-30] VITALS (10 sets, daily range): BP systolic 116–144; BP diastolic 73–107
[2019-09-30] MEDS ORDERED: PHENAZOPYRIDIN100 MG PO (00:43)
[2019-09-30] MEDS ORDERED: TIZANIDINE HCL4 M1 (00:43)
[2019-09-30] MEDS ORDERED: FLUCONAZOLE100 MG PO (00:43)
[2019-09-30] MEDS ORDERED: ONDANSETRON2 MG/1 ML IV (00:43)
--- NOTE | 2019-09-30 02:25 | NUR ---
PT IS TRANSFERRED FROM ER ,PT IS AOX3 RESPIRATIONS ARE EVEN AND UNLABORED PT C/O PAIN AND GIVEN ORDERED PAIN MEDICATION ASSESSMENTS DONE ,ORIENTED THE PT TO THE ENVIRONMENT.RT AN 20G S/L CALL LIGHT WITH IN REACH ,CONTINUE TO MONITOR
[2019-09-30] MEDS: MORPHINE SULFATE 2 MG/ML SYR 1ML IV PRN ×2 (02:30→19:59)
[2019-09-30] MEDS: ONDANSETRON HCL INJ 2MG/ML 2ML 2 MG/ML VIAL IV PRN (02:30)
[2019-09-30] MEDS ORDERED: TEMAZEPAM 15 MG CAP PO PRN (04:30)
[2019-09-30] MEDS ORDERED: PHENAZOPYRIDINE HCL 100 MG TAB PO PRN (04:30)
[2019-09-30] MEDS: HYDROCODONE/APAP 10MG-325MG TAB PO PRN ×3 (05:00→14:25)
[2019-09-30 05:06] LABS: BASOPHILS % 0.5 % (0.0-1.0); EOSINOPHILS # (AUTO) 0.3 (0.0-0.4); EOSINOPHILS % 4.5 % (0.0-6.0); HEMATOCRIT 46.2 % (34.2-44.1); HEMOGLOBIN 14.4 g/dL (12.0-16.0); LYMPHOCYTES # (AUTO) 1.5 (1.0-3.2); LYMPHOCYTES % 24.4 % (18.0-39.1); MEAN CORPUSCULAR HGB CONC 31.2 g/dL (31-35); MEAN CORPUSCULAR VOLUME 89.9 fL (81-99); MONOCYTES # (AUTO) 0.5 (0.2-0.8); MONOCYTES % 8.8 % (4.4-11.3); NEUTROPHILS # (AUTO) 3.7 (2.1-6.9); NEUTROPHILS % 61.5 % (38.7-80.0); PLATELET COUNT 283 x10e3/uL (140-360); RED BLOOD COUNT 5.14 x10e6/uL (3.6-5.1); RED CELL DISTRIBUTION WIDTH 12.8 % (11.7-14.4)
[2019-09-30 05:32] LABS: ALANINE AMINOTRANSFERASE 13 IU/L (0-55); ALBUMIN 3.6 g/dL (3.5-5.0); ALBUMIN/GLOBULIN RATIO 0.9 (0.8-2.0); ALKALINE PHOSPHATASE 101 IU/L (40-150); ANION GAP 14.6 mmol/L (8-16); BLOOD UREA NITROGEN 16 mg/dL (7-26); BUN/CREATININE RATIO 18 (6-25); CALCIUM 9.5 mg/dL (8.4-10.2); CARBON DIOXIDE 27 mmol/L (22-29); CHLORIDE 102 mmol/L (98-107); CHOL/HDL RATIO 3.3 (3.0-3.6); CHOLESTEROL 125 MD/DL (0-199); CREATININE, SERUM 0.89 mg/dL (0.57-1.11); EST GLOMERULAR FILTRATION RATE > 60 ML/MIN (60-); GLUCOSE 105 mg/dL (74-118); HDL CHOLESTEROL 38 MG/DL (40-60); LDL CHOLESTEROL 57 MG/DL (60-130); POTASSIUM 4.6 mmol/L (3.5-5.1); SODIUM 139 mmol/L (136-145); TRIGLYCERIDES 150 MG/DL (0-149)
[2019-09-30] MEDS: MEROPENEM 500MG/ NS 50ML 50 ML IV SCH ×2 (05:35→14:23)
[2019-09-30] MEDS: LEVOTHYROXINE SODIUM 50 MCG TAB PO SCH (05:35)
--- NOTE | 2019-09-30 06:01 | NUR ---
PT C/O PAIN AND GIVEN ORDERED PAIN MEDICATION ,DR ARIAS HAS SEEN THE PT ,CALL LIGHT WITH IN REACH ,CONTINUE TO MONITOR
[2019-09-30 06:21] LABS: CREATINE KINASE MB 0.6 ng/mL (0-5.0)
--- NOTE | 2019-09-30 07:00 | NUR ---
RECEIVED PATIENT AWAKE RESTING IN BED NO S/S OF DISTRESS. BED LOW, WHEELS LOCKED, SIDE RAILS X2. CALL LIGHT IN REACH WILL CONTINUE TO MONITOR
--- NOTE | 2019-09-30 07:02 | NUR ---
BEDSIDE REPORT GIVEN TO THE ONCOMING NURSE
[2019-09-30] MEDS: MAGNESIUM OXIDE 400 MG TAB PO SCH (08:32)
[2019-09-30] MEDS: GABAPENTIN 300 MG CAP PO SCH ×2 (08:32→16:04)
[2019-09-30] MEDS: METOPROLOL SUCCINATE 50 MG TAB XL PO SCH (08:32)
[2019-09-30] MEDS: POTASSIUM CHLORIDE 10MEQ EA PO SCH (08:32)
[2019-09-30] MEDS: FOLIC ACID 1 MG TAB PO SCH (08:32)
[2019-09-30] MEDS: CLOPIDOGREL BISULFATE 75 MG TAB PO SCH (08:32)
[2019-09-30] MEDS: PANTOPRAZOLE SOD 40 MG TABEC PO SCH (08:32)
[2019-09-30] MEDS: ASPIRIN 81 MG ENTERIC COATED PO SCH (08:32)
[2019-09-30] MEDS: FLUOXETINE HCL 20 MG CAP PO SCH ×2 (08:32→16:04)
[2019-09-30] MEDS: ALPRAZOLAM 0.25 MG TAB PO PRN (08:36)
[2019-09-30] MEDS: BUDESONIDE/FORMOTEROL 160/4.5MCG INHALER INH SCH ×2 (09:00→16:04)
[2019-09-30] MEDS: ONDANSETRON HCL 4 MG ORAL DISINTEGRATING TAB PO PRN ×2 (10:28→19:59)
[2019-09-30] MEDS: ACETAMINOPHEN 325 MG TAB PO PRN (10:28)
--- NOTE | 2019-09-30 12:28 | Consultation ---
DATE OF CONSULTATION: Cardiology Consultation REASON FOR CONSULTATION: Chest pain. HISTORY OF PRESENT ILLNESS: This is a 69-year-old woman, who has a history of hypertension, chronic obstructive pulmonary disease, transient ischemic attack/cerebrovascular accident, hypothyroidism, cancer, and hyperlipidemia, who presented to the emergency department with multiple symptoms consisting of shortness of breath, dysuria, hematuria, and pressure across her chest. She reports that she is feeling better now. Denies any ongoing chest pain. She states that there was just a tightness across the entire precordium, mild to moderate in intensity, occurred at rest. No exacerbating or relieving factors. Recent cardiac testing with her clinical microbiologist in the Medical Center was within normal limits per report. REVIEW OF SYSTEMS: A 12-point review of system was conducted, is negative except as stated above in the HPI. PAST MEDICAL HISTORY: As stated above in the HPI. PAST SURGICAL HISTORY: None recent. PAST FAMILY HISTORY: Noncontributory. SOCIAL HISTORY: No illicit drug, alcohol, or tobacco use. ALLERGIES: SULFA. MEDICATIONS: See medications reconciliation form. PHYSICAL EXAMINATION: VITAL SIGNS: Temperature is 98.8, heart rate 75, respirations 18, blood pressure is 134/73, and ox saturation 96% on room air. GENERAL: Well appearing, well built, no apparent distress. Alert and oriented x3. HEAD: Normocephalic and atraumatic. Eyes, the extraocular muscles track. Conjunctivae clear. NECK: No JVD. No bruits. CARDIOVASCULAR: Regular rate and rhythm. LUNGS: Clear to auscultation. ABDOMEN: Soft, nontender, nondistended. EXTREMITIES: No clubbing, cyanosis, or edema. VASCULAR: 2+ pulses. SKIN: Warm, dry, and intact. NEUROLOGIC: No focal deficits noted. LABORATORY DATA: Reviewed. Hemoglobin is 14, creatinine is 0.89. Troponins are negative x2. BNP is normal at 29. A 12-lead electrocardiogram showed normal sinus rhythm. Chest x-ray shows low lung volumes. IMPRESSION: 1. Urinary tract infection. 2. Chest pain. 3. Hypertension. 4. Hyperlipidemia. 5. Obesity. 6. Chronic obstructive pulmonary disease. RECOMMENDATIONS: The patient is ruled out for acute myocardial infarction. Her BNP is within normal limits. Recent echocardiogram in July of this year showed normal left ventricular systolic function and no significant valvular abnormalities. Continue UTI and COPD treatment per primary team. No further cardiac workup is required at this point in time. DO HAYDEN Tran/CLEM /[id number]
[2019-09-30 12:33] LABS: CREATINE KINASE MB 0.4 ng/mL (0-5.0)
--- NOTE | 2019-09-30 18:04 | NUR ---
This is a 69-year-old woman, who has a history of hypertension, chronic obstructive pulmonary disease, transient ischemic attack/cerebrovascular accident, hypothyroidism, cancer, and hyperlipidemia, who presented to the emergency department with multiple symptoms consisting of shortness of breath, dysuria, hematuria, and pressure across her chest. She reports that she is feeling better now. Denies any ongoing chest pain. She states that there was just a tightness across the entire precordium, mild to moderate in intensity, occurred at rest. No exacerbating or relieving factors. Recent cardiac testing with her pigment presser in the Medical Center was within normal limits per report. [id number]
--- NOTE | 2019-09-30 19:27 | NUR ---
RECEIVED PT IN BED AOX3 ,C/O PAIN AND NAUSEA CALL LIGHT WITH IN EACH ,CONTINUE TO MONITOR
[2019-09-30] MEDS ORDERED: AMLODIPINE BESYLATE 10 MG TAB PO SCH (21:00)
[2019-09-30] MEDS ORDERED: MIRTAZAPINE 15 MG TAB PO SCH (21:00)
--- NOTE | 2019-09-30 23:32 | Consultation ---
DATE OF CONSULTATION: REASON FOR CONSULTATION: UTI. HISTORY OF PRESENT ILLNESS: Ms. Woods is well-known to me and she is a 69-year-old, who has a history bacteriuria. The patient comes in with chest pain in the emergency room. The patient does have a history of COPD, TIA, CVA, hypothyroidism, hyperlipidemia, comes in with chest pain. The patient denies any fever or chills. She does history of bacteria, which she had for a long time. She also has fatigue. The patient was admitted from ER physician, there was concern for UTI. PAST MEDICAL HISTORY: As above. PAST SURGICAL HISTORY: As above. ALLERGIES: NKA. SOCIAL HISTORY: There is no smoking, drug abuse, or alcohol abuse. FAMILY HISTORY: Otherwise unremarkable. PHYSICAL EXAMINATION: GENERAL: She is currently alert and oriented. VITALS SIGNS: Stable, currently afebrile. HEENT: She is not icteric. NECK: Supple. CHEST: Clear. HEART: S1, S2. ABDOMEN: Soft. IMPRESSION: Bacteriuria. There has been antibiotic. Continue with . Can discontinue antibiotic. Can be discharged once the chest pain and cardiac workup is cleared by Cardiology. The case was discussed the patient at length and she called her daughter, we talked over the phone also. We will follow. MD SANDHYA Soares/CLEM /[id number]
[2019-10-01] VITALS: BP_SYST 143; BP_SYST 146; BP_DIAS 85
[2019-10-01] MEDS: HYDROCODONE/APAP 10MG-325MG TAB PO PRN (01:20)
[2019-10-01 04:00] VITALS: BP 122/75
[2019-10-01] MEDS: LEVOTHYROXINE SODIUM 50 MCG TAB PO SCH (05:44)
--- NOTE | 2019-10-01 06:10 | NUR ---
PT RESTING ,GIVEN PAIN MEDICATION CALL LIGHT WITH IN REACH ,CONTINUE TO MONITOR
--- NOTE | 2019-10-01 07:18 | NUR ---
BEDSIDE REPORT GIVEN TO THE ONCOMING NURSE
[2019-10-01 08:51] VITALS: BP 116/83
[2019-10-01] MEDS ORDERED: AMOXICILLIN/CLAVULANATE K 875 MG TAB PO SCH (09:00)
[2019-10-01] MEDS: ASPIRIN 81 MG ENTERIC COATED PO SCH (09:24)
[2019-10-01] MEDS: MAGNESIUM OXIDE 400 MG TAB PO SCH (09:25)
[2019-10-01] MEDS: POTASSIUM CHLORIDE 10MEQ EA PO SCH (09:25)
[2019-10-01] MEDS: CLOPIDOGREL BISULFATE 75 MG TAB PO SCH (09:26)
[2019-10-01] MEDS: GABAPENTIN 300 MG CAP PO SCH (09:26)
[2019-10-01] MEDS: FLUOXETINE HCL 20 MG CAP PO SCH (09:28)
[2019-10-01] MEDS: PANTOPRAZOLE SOD 40 MG TABEC PO SCH (09:28)
[2019-10-01] MEDS: METOPROLOL SUCCINATE 50 MG TAB XL PO SCH (09:29)
[2019-10-01] MEDS: ACETAMINOPHEN 325 MG TAB PO PRN (09:38)
[2019-10-01] MEDS: FOLIC ACID 1 MG TAB PO SCH (09:39)
[2019-10-01] MEDS: MORPHINE SULFATE 2 MG/ML SYR 1ML IV PRN (09:39)
[2019-10-01 11:45] VITALS: BP 154/102
[2019-10-01] MEDS: ONDANSETRON HCL 4 MG ORAL DISINTEGRATING TAB PO PRN (11:52)
[2019-10-01] MEDS: ALPRAZOLAM 0.25 MG TAB PO PRN (11:52)
[2019-10-01 12:25] VITALS: BP 133/79
--- NOTE | 2019-10-01 14:28 | NUR ---
SPOKE TO Corry KNAPP, DR. JUNIOR INFORMED OF PATIENT'S STILL HAVING ESBL AND MDRO IN HER URINE, DR. JUNIOR STATED, THAT IS OKAY, SEND HER HOME.
--- NOTE | 2019-10-01 15:12 | NUR ---
SPOKE TO TEGAN AT DR. JUNIOR'S OFFICE REGARDING THE NEED FOR PATIENT TO RECEIVE ANTIBIOTICS AT HOME.
--- NOTE | 2019-10-01 15:41 | NUR ---
PATIENT WAS FOUND ON THE FLOOR AT HER DOORWAY IN THE HALLWAY, DR. ARIAS NOTIFIED, PATIENT STATED THAT SHE HAS NO PAIN AFTER FALLING, PATIENT INFORMED THAT THERE IS A PROBABILITY THAT SHE COULD HAVE A FRACTURE FROM THE FALL, WE WILL CHECK HER FOR FACTURE IF SHE WILL ALLOW US TO, PATIENT STATED "NO, I AM FINE, I WANT TO GO HOME."
--- OUTSIDE RECORDS SUMMARY | 2019-10-01 20:21 | XMS REPORT | Clinical Summary ---
Author Author [facility] Address Unknown Phone Unavailable Care Team Providers Care Loan Auditor Name Role Phone Mekhi Verduzco MD PCP [...] INFLUENZA VACCINE 10/02/2019 Results Not on fileafter 09/28/2018 Insurance Type Payer Benefit Subscriber ID Effective Phone Address Plan / Dates Group Commercial AARP AARP xxxxxxxxxxx 2013- SUPPLEMENT Present Medicare MEDICARE MEDICARE xxxxxxxxxx 2010-P [place], PART A AND resent [place] Advance Directives For more information, please contact: [phone] Patient Joint Maker Machine Explanation Type Date Recorded Advance Directives, Living Will and Medical Power of Director Of Accreditation Date Inactivated Comments Code Status Date Activated 08/28/2015 5:39 PM Full Code 08/20/2015 11:35 PM Code Status decision reached by: Patient
--- OUTSIDE RECORDS SUMMARY | 2019-10-01 20:21 | XMS REPORT | Clinical Summary ---
Author Author SAVANA [facility] Address Unknown Phone Unavailable Care Team Providers Care Gut Snatcher Name Role Phone Mekhi Verduzco PCP Allergies [...] ot Implanted Type Area Manufactur er 05/01/2018 132992 / [id number] / Bone Chip Canc 1.7-10mm 30ml Bone Right: Hip M USCULOSKE 268154 - [id number] LETAL Implanted: Qty: 1 on 09/27/2015 by TRANSPLANT Mahamed Chery Jr., MD FND 04/13/2018 826045 / [id number] / Bone Chip Canc 1.7-10mm 30ml Bone Right: Hip M USCULOSKE 822455 - [id number] LETAL Implanted: Qty: 1 on 09/27/2015 by Mahamed Hallman Jr., MD FND 11/09/2018 846345 / [id number] / Bone Chip Canc 1.7-10mm 30ml Bone Right: Hip M USCULOSKE 888915 - [id number] LETAL Implanted: Qty: 1 on 07/10/2016 by TRANSPLANT Mahamed Chery Jr., MD FND 10/27/2018 815786 / [id number] / Bone Chip Canc 1.7-10mm 30ml Bone Right: Hip M USCULOSKE 667191 - [id number] LETAL Implanted: Qty: 1 on 07/10/2016 by TRANSPLANT Mahamed Chery Jr., MD FND 04/02/2026- / / [id number] Cbl Trma Cbl-Rdy Gtr 1.0t144hc Fracture/F Right: Hip JAI:ZIM - [id number] ixation CM US Implanted: Qty: 1 on 07/10/2016 by Mahamed Chery Jr., MD 03/02/2026- / / [id number] Cbl Trma Cbl-Rdy Gtr 1.3o971zi Fracture/F Right: Hip JAI:ZIM -18 - [id number] ixation CM US Implanted: Qty: 1 on 07/10/2016 by Mahamed Chery Jr., MD 04/30/2026 / [id number] Cbl Trma Cbl-Rdy Gtr 1.7i128eq Fracture/F Right: Hip JAI:ZIM -18 - [id number] ixation CM US Implanted: Qty: 1 on 07/10/2016 by Mahamed Chery Jr., MD 01/04/2026 [id number] / / [id number] Scr Acet 6.0vir96su [id number] - Joints Right: Hip BIOMET [id number] ORTHO Implanted: Qty: 1 on 07/10/2016 by Mahamed Chery Jr., MD 04/25/2026 [id number] / / [id number] Scr Lp Dome 6.5x30mm [id number] - Joints Right: Hip BIOMET [id number] ORTHO Implanted: Qty: 1 on 07/10/2016 by Mahamed Chery Jr., MD 02/02/2026 [id number] / / [id number] Scr Lp G7 Acet Dome 6.5x20mm Joints Right: Hip B IOMET [id number] - [id number] ORTHO Implanted: Qty: 1 on 07/10/2016 by Mahamed Chery Jr., MD 02/05/2026 [id number] / / [id number] Scr Lp G7 Acet Dome 6.5x20mm Joints Right: Hip B IOMET [id number] - [id number] ORTHO Implanted: Qty: 1 on 07/10/2016 by Mahamed Chery Jr., MD 02/17/2026 [id number] / / [id number] Liner G7 Dual Mobility 46mm G Joints Right: Hip BIOMET 090541995 - [id number] ORTHO Implanted: Qty: 1 on 07/10/2016 by Mahamed Chery Jr., MD 04/02/2024 [id number] / / [id number] Revision Stem Straight Tapered Joints Right: Hip BIOMET Splined Distal Stem 17mm X190mm With Locking Screw Implanted: Qty: 1 on 07/10/2016 by Mahamed Chery Jr., MD 03/31/2021 -[id number] / / [id number] Dual Mobility Bearing 28mm Head Joints Right: Hip BIOMET Size; 48mm Bearing Size G Implanted: Qty: 1 on 07/10/2016 by Mahamed Chery Jr., MD 01/31/2026 650-1055 / / [id number] Biolox Delta Option Hip System 28mm Joints Right: Hip BIOMET Head Type 16/18 Taper Implanted: Qty: 1 on 07/10/2016 by Mahamed Chery Jr., MD 06/30/2026 [id number] / / [id number] Porous Plasma/ Uncemented A Size Joints Right: Hip BIOMET 50mm Type 1 Taper Implanted: Qty: 1 on 07/10/2016 by Mahamed Chery Jr., MD 05/13/2026 650-1067 / / [id number] +3mm Neck Type 1 Taper Joints Right: Hip BIOMET Implanted: Qty: 1 on 07/10/2016 by Mahamed Chery Jr., MD 08/10/2025 [id number] / / [id number] Shell Acet Osseoti Sz G 58mm Joints Right: Hip B IOMET [id number] - [id number] Implanted: Qty: 1 on 07/10/2016 by Mahamed Chery Jr., MD 02/05/2026 [id number] / / [id number] Scr Lp Acet Dome 6.5x25mm [id number] Joints Right: Hip BIOMET - [id number] ORTHO Implanted: Qty: 1 on 07/10/2016 by Mahamed Chery Jr., MD 10/01/2018 [id number] / / [id number] Liner [place] E1 Sz G 36mm Joints Right: Hip BIO MET 098844248 - [id number] Implanted: Qty: 1 on 09/18/2016 by Mahamed Chery Jr., MD 04/30/2018 620-010 / / 04/18-R280/281 Stimulan Paste/Beads Right: Hip BIOCOMPOSI Implanted: Qty: 1 on 09/27/2015 by Mahamed Coto Jr., MD 12/31/2017 620-010 / / 12/15-V479-262 Stimulan Paste/Beads Right: Hip BIOCOMPOSI Implanted: Qty: 1 on 09/27/2015 by Mahamed Coto Jr., MD 08/16/2024 [id number] / / [id number] Modular Head Right: Hip BIOMET Implanted: Qty: 1 on 09/18/2016 by Mahamed Chery Jr., MD Results Not on fileafter 09/28/2018 Insurance Payer Benefit Subscriber ID Type Phone Address Plan / Group MEDICARE MEDICARE A xxxxxxxxxx Medicare B MCR SUPPLEMENT/INDIVIDUAL AARP/UNITE xxxxxxxxxxx [facility] gap D HEALTHCARE -[phone] Advance Directives Patient has advance care planning documents, and code status on file. For more i nformation, please contact: [facility] [address] [place] [address] Date Inactivated Comments Code Status [...]
--- OUTSIDE RECORDS SUMMARY | 2019-10-01 20:22 | XMS REPORT | Clinical Summary ---
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
--- OUTSIDE RECORDS SUMMARY | 2019-10-01 20:22 | XMS REPORT | Clinical Summary ---
Author Author SAVANA [facility] Address Unknown Phone Unavailable Care Team Providers Care Baking Assistant Name Role Phone Mekhi Verduzco PCP Allergies [...] ot Implanted Type Area Manufactur er 05/01/2018 088283 / [id number] / Bone Chip Canc 1.7-10mm 30ml Bone Right: Hip M USCULOSKE 557106 - [id number] LETAL Implanted: Qty: 1 on 09/27/2015 by TRANSPLANT Mahamed Chery Jr., MD FND 04/13/2018 406629 / [id number] / Bone Chip Canc 1.7-10mm 30ml Bone Right: Hip M USCULOSKE 054550 - [id number] LETAL Implanted: Qty: 1 on 09/27/2015 by Mahamed Hallman Jr., MD FND 11/09/2018 979965 / [id number] / Bone Chip Canc 1.7-10mm 30ml Bone Right: Hip M USCULOSKE 035094 - [id number] LETAL Implanted: Qty: 1 on 07/10/2016 by TRANSPLANT Mahamed Chery Jr., MD FND 10/27/2018 435186 / [id number] / Bone Chip Canc 1.7-10mm 30ml Bone Right: Hip M USCULOSKE 149231 - [id number] LETAL Implanted: Qty: 1 on 07/10/2016 by TRANSPLANT Mahamed Chery Jr., MD FND 04/02/2026- / / [id number] Cbl Trma Cbl-Rdy Gtr 1.9c382xq Fracture/F Right: Hip JAI:ZIM - [id number] ixation CM US Implanted: Qty: 1 on 07/10/2016 by Mahamed Chery Jr., MD 03/02/2026- / / [id number] Cbl Trma Cbl-Rdy Gtr 1.8r715ro Fracture/F Right: Hip JAI:ZIM -18 - [id number] ixation CM US Implanted: Qty: 1 on 07/10/2016 by Mahamed Chery Jr., MD 04/30/2026 / [id number] Cbl Trma Cbl-Rdy Gtr 1.1a872qv Fracture/F Right: Hip JAI:ZIM -18 - [id number] ixation CM US Implanted: Qty: 1 on 07/10/2016 by Mahamed Chery Jr., MD 01/04/2026 [id number] / / [id number] Scr Acet 6.0lja94wp 950854194 - Joints Right: Hip BIOMET [id number] ORTHO Implanted: Qty: 1 on 07/10/2016 by Mahamed Chery Jr., MD 04/25/2026 [id number] / / [id number] Scr Lp Dome 6.5x30mm [id number] - Joints Right: Hip BIOMET [id number] ORTHO Implanted: Qty: 1 on 07/10/2016 by aMhamed Chery Jr., MD 02/02/2026 [id number] / / [id number] Scr Lp G7 Acet Dome 6.5x20mm Joints Right: Hip B IOMET 675188588 - [id number] ORTHO Implanted: Qty: 1 on 07/10/2016 by Mahamed Chery Jr., MD 02/05/2026 [id number] / / [id number] Scr Lp G7 Acet Dome 6.5x20mm Joints Right: Hip B IOMET 802396746 - [id number] ORTHO Implanted: Qty: 1 on 07/10/2016 by Mahamed Chery Jr., MD 02/17/2026 [id number] / / [id number] Liner G7 Dual Mobility 46mm G Joints Right: Hip BIOMET 048157652 - [id number] ORTHO Implanted: Qty: 1 on 07/10/2016 by Mahamed Chery Jr., MD 04/02/2024 11-801097 / / [id number] Revision Stem Straight Tapered Joints Right: Hip BIOMET Splined Distal Stem 17mm X190mm With Locking Screw Implanted: Qty: 1 on 07/10/2016 by Mahmaed Chery Jr., MD 03/31/2021 -[id number] / / [id number] Dual Mobility Bearing 28mm Head Joints Right: Hip BIOMET Size; 48mm Bearing Size G Implanted: Qty: 1 on 07/10/2016 by Mahamed Chery Jr., MD 01/31/2026 650-1055 / / [id number] Biolox Delta Option Hip System 28mm Joints Right: Hip BIOMET Head Type 16/18 Taper Implanted: Qty: 1 on 07/10/2016 by Mahamed Chery Jr., MD 06/30/2026 11-640893 / / [id number] Porous Plasma/ Uncemented A Size Joints Right: Hip BIOMET 50mm Type 1 Taper Implanted: Qty: 1 on 07/10/2016 by Mahamed Chery Jr., MD 05/13/2026 650-1067 / / [id number] +3mm Neck Type 1 Taper Joints Right: Hip BIOMET Implanted: Qty: 1 on 07/10/2016 by Mahamed Chery Jr., MD 08/10/2025 [id number] / / [id number] Shell Acet Osseoti Sz G 58mm Joints Right: Hip B IOMET [id number] - [id number] Implanted: Qty: 1 on 07/10/2016 by Mahamed Chery Jr., MD 02/05/2026 [id number] / / [id number] Scr Lp Acet Dome 6.5x25mm [id number] Joints Right: Hip BIOMET - [id number] ORTHO Implanted: Qty: 1 on 07/10/2016 by Mahamed Chery Jr., MD 10/01/2018 [id number] / / [id number] Liner [place] E1 Sz G 36mm Joints Right: Hip BIO MET 350998213 - [id number] Implanted: Qty: 1 on 09/18/2016 by Mahamed Chery Jr., MD 04/30/2018 620-010 / / 04/18-R280/281 Stimulan Paste/Beads Right: Hip BIOCOMPOSI Implanted: Qty: 1 on 09/27/2015 by Mahamed Coto Jr., MD 12/31/2017 620-010 / / 12/15-E822-341 Stimulan Paste/Beads Right: Hip BIOCOMPOSI Implanted: Qty: 1 on 09/27/2015 by Mahamed Coto Jr., MD 08/16/2024 [id number] / / [id number] Modular Head Right: Hip BIOMET Implanted: Qty: 1 on 09/18/2016 by Mahamed Chery Jr., MD Results Not on fileafter 09/28/2018 Insurance Payer Benefit Subscriber ID Type Phone Address Plan / Group MEDICARE MEDICARE A xxxxxxxxxx Medicare B MCR SUPPLEMENT/INDIVIDUAL AARP/UNITE xxxxxxxxxxx [facility] gap D HEALTHCARE -[phone] Advance Directives Patient has advance care planning documents, and code status on file. For more i nformation, please contact: [facility] [address] [place] [address] Date Inactivated Comments Code Status [...]
--- OUTSIDE RECORDS SUMMARY | 2019-10-01 20:22 | XMS REPORT | Continuity of Care Document ---
Author Author [facility] t Organization [facility] Address [address] [place] [address] Phone Unavailable Care Team Providers Care Custodian Supervisor Name Role Phone EVE NEGRO, MD COSBY PCP Ching KINSEY Attphys Unavailable Katarzyna MARISCAL Attphys Unavailable HARJEET PRADO Attphys Unavailable FRANCES KINSEY Attphys Unavailable ELLIOT CHRISTENSEN Attphys Unavailable Katarzyna MARISCAL Admphys Unavailable FRANCES KINSEY Admphys Unavailable Payers Payer Name Policy Type Policy Number Effective Date Expiration Date Katarzyna jim Linda Medicare Complete NA 2019 00:00:00 [facility] Problems Condition Name Condition Details Condition Category Status Onset Date Resolution Date Last Treatment Date Treating Clinician Comments Source H/O total hip arthroplasty H/O total hip arthroplasty Disease Active 2016-09-18 00:00:00 [facility] Right hip pain Right hip pain Disease Active 2016-07-10 00:00:00 [facility] History of total right hip arthroplasty History of total rig ht hip arthroplasty Disease Active 2015-09-27 00:00:00 [facility] Dislocation of hip, right, initial encounter Dislocati on of hip, right, initial encounter Disease Active 2015-09-17 00:00:[address] [facility] Essential hypertension with goal blood pressure less t colindres 140/90 Essential hypertension with goal blood pressure less than 140/90 Disease Activ e 2015-09-17 00:00:00 [facility] Hypothyroidism Hypothyroidism Disease Active 2015-09-17 00:00:00 [facility] History of stroke - on 09/09/15 History of stroke - on 09/09/15 Disease Active 2015-09-17 00:00:00 [facility] Hypoglycemia Hypoglycemia Disease Active 2015-09-17 00:00:00 [facility] GERD (gastroesophageal reflux disease) GERD (gastroesophagea l reflux disease) Disease Active 2015-09-17 00:00:00 [facility] Anemia Anemia Disease Active 2015-09-17 00:00:00 [facility] Unsteady gait Unsteady gait Disease Active 2015-08-22 00:00:00 Luca Paez Opioid intoxication delirium Opioid intoxication delirium Disease Active 2015-08-22 00:00:00 [facility] Non-compliance with treatment Non-compliance with treatment Disease Active 2015-08-22 00:00:00 [place] [facility] Infection due to extended-spectrum beta- lactamase-producing Klebsiella pneumoniae Infection due to ESBL-producing Klebsiella pneumoniae Problem Active [facility] Urinary tract infection due to extended- spectrum beta lactamase (ESBL)-producing Klebsiella Problem Active [facility] Hypotension Problem Active [facility] Allergies, Adverse Reactions, Alerts Allergy Name Allergy Type Status Severity Reaction(s) Onset Date Inacti ve Date Treating Clinician Comments Source Sulfa (Sulfonamide Antibiotics) Allergy to substance Active 2019-07-13 00:00:00 [facility] Adhesive Drug Intolerance Active Other (See Comments) 2016-08-31 3 00:00:00 Tears skin [facility] Hydromorphone Drug Intolerance Active 2016-07-10 00:00: 00 Pt gets very Confused and hallucinates. [facility] Sulfasalazine Propensity to adverse reactions Active 16-10-00 00:00[facility] S[facility]a (Sulfonamide Antibiotics) Propensity to adverse reactions Activ e Rash 2015-09-16 00:00:00 [facility] Sulfa (Sulfonamide Antibiotics) Propensity to adverse reactions to drug Active 2015-08-20 00:00:00 [place] [facility] Family History Family Member Diagnosis Comments Start Date Stop Date Source Natural father Heart disease Luca Paez Natural mother Heart disease Luca Paez Social History Social Habit Start Date Stop Date Quantity Comments Source History of tobacco use Cigarette smoker (laura dominguez) Luca Paez Sex Assigned At [facility] Cigarettes smoked current (pack per day) - Reported 00:00:00 2016-09-20 00:00:00 [facility] Cigarette pack-years 2016-09-20 00:00:00 2016-09-20 00:00:00 [facility] Tobacco Comment 2016-09-12 00:00:00 2016-09-12 00:00:00 quit 201 4 years ago / still does [facility] Alcohol intake 2016-05-13 00:00:00 2016-05-13 00:00:00 Current drinker of alcohol (finding) Luca Paez Alcohol Comment 2015-08-24 00:00:00 2015-08-24 00:00:00 ocasionally Luca Paez Smoking Status Start Date Stop Date Source Former smoker 2016-09-20 00:00:00 2016-09-20 00:00:00 [facility] Current every day smoker 2016-05-13 00:00:00 Ayaan Paez Medications Ordered Medication Name Filled Medication Name Start Date Stop Da te Current Medication? Ordering Clinician Indication Dosage Frequency Signature (SIG) Comments Components Source fluconazole (DIFLUCAN) 200 MG tablet 2016-09-18 11:35:17 Ye s 200mg QD Take 200 mg by mouth daily. [facility] valsartan-hydrochlorothiazide (DIOVAN-HCT) 320-12.5 mg per t ablet 2016-09-12 13:41:41 Yes 1{tbl} QD Take 1 tablet by mouth daily. [facility] PANTOPRAZOLE SODIUM (PROTONIX ORAL) 2016-09-12 13:39:49 Yes Take by mouth. [facility] ALPRAZolam (XANAX) 0.5 MG tablet 2016-07-11 18:41:12 Yes .5mg Take 0.5 mg by mouth 3 (three) times daily as needed for Anxiety. [facility] ALBUTEROL SULFATE (PROAIR HFA INHL) 2016-07-10 08:06:27 Yes Inhale by mouth via inhaler as needed. [facility] metoprolol (TOPROL-XL) 100 MG 24 hr tablet 2016-07-10 08:05:07 Yes 100mg QD Take 100 mg by mouth daily . [facility] potassium chloride (KLOR-CON) 10 MEQ CR tablet 2016-07-10 08:05: 07 Yes 10meq Q.5D Take 10 mEq by mouth 2 (two) times daily . [facility] gabapentin (NEURONTIN) 600 MG tablet 2016-07-10 08:05:07 Ye s 600mg Q.5D Take 600 mg by mouth 2 (two) times daily . [facility] simvastatin (ZOCOR) 40 MG tablet 2016-07-10 08:05:07 Yes 40mg QD Take 40 mg by mouth nightly . [facility] levothyroxine (SYNTHROID, LEVOTHROID) 100 MCG tablet 08:05:07 Yes 100ug QD Take 100 mcg by mouth daily . [facility] cyclobenzaprine (FLEXERIL) 10 MG tablet 2016-06-26 13:47:36 Yes 10mg Take 10 mg by mouth 3 (three) times daily as needed for Muscle spasms. [facility] ALPRAZolam (XANAX) 0.5 MG tablet 2016-05-13 15:17:35 Yes .5mg Q.[id number] Take 0.5 mg by mouth 3 (three) times a d ay as needed for anxiety. Luca Paez FLUoxetine (PROzac) 20 MG capsule 2016-05-13 15:17:35 Yes 20mg Q.5D Take 20 mg by mouth 2 (two) times a day. Chloé Paez folic acid (FOLVITE) 1 MG tablet 2016-05-13 15:17:35 Yes 1mg QD Take 1 mg by mouth daily. Luca Paez gabapentin (NEURONTIN) 600 MG tablet 2016-05-13 15:17:35 Ye s 600mg Q.5D Take 600 mg by mouth 2 (two) times a day. Luca Paez levothyroxine (SYNTHROID, LEVOTHROID) 100 MCG tablet 2 15:17:35 Yes 100ug QD Take 100 mcg by mouth every morning. Luca Paez magnesium oxide (MAG-OX) 400 mg tablet 2016-05-13 15:17:35 Yes 400mg Q.5D Take 400 mg by mouth 2 (two) times a day. Luca Paez potassium chloride (K-DUR) 10 MEQ CR tablet 2016-05-13 15:17:35 Yes 10meq Q.5D Take 10 mEq by mouth 2 (two) times a day. Luca Paez omeprazole (PriLOSEC) 20 MG capsule 2016-05-13 15:17:35 Yes 20mg Q.5D Take 20 mg by mouth 2 (two) times a day. Luca Paez metoprolol succinate XL (TOPROL-XL) 100 MG 24 hr tablet 2016-05-13 15:17:35 Yes 100mg QD Take 100 mg by mouth daily. Luca Paez clopidogrel (PLAVIX) 75 mg tablet 2016-05-13 15:17:35 Yes 75mg QD Take 75 mg by mouth daily. Luca Paez valsartan-hydrochlorothiazide (DIOVAN-HCT) 320-12.5 mg per t ablet 2016-04-30 00:00:00 Yes 1{tbl} QD Take 1 tablet by mouth once d aily. Luca Paez HYDROcodone-acetaminophen (NORCO) 10-325 mg per tablet 2016-04-11 00:00:00 Yes Luca perkins clopidogrel (PLAVIX) 75 mg tablet 2015-09-29 08:01:11 Yes 75mg QD Take 75 mg by mouth daily. [facility] ondansetron (ZOFRAN) 4 MG tablet 2015-09-27 11:04:45 Yes 4mg Take 4 mg by mouth 2 (two) times daily as needed for Nausea. [facility] FLUoxetine (PROZAC) 10 MG tablet 2015-09-27 11:03:45 Yes 10mg QD Take 10 mg by mouth daily. [facility] magnesium oxide (MAG-OX) 400 mg tablet 2015-09-17 02:18:33 Yes 400mg Take 400 mg by mouth. [facility] folic acid (FOLVITE) 1 MG tablet 2015-09-17 02:18:33 Yes 1mg Take 1 mg by mouth. [facility] Amlodipine Besylate Amlodipine Besylate Yes 10 Bedtime [facility] Budesonide/Formoterol Fumarate (Symbicor t 160-4.5 Mcg Inhaler) 10.2 Gm HFA.AER.AD Budesonide/Formoterol Fumarate (Symbicor t 160-4.5 Mcg Inhaler) 10.2 Gm HFA.AER.AD Yes 2 Twice A Day [facility] Clopidogrel Bisulfate (Clopidogrel) 75 Mg TABLET Clopi dogrel Bisulfate (Clopidogrel) 75 Mg TABLET Yes 75 [facility] Cranberry Extract (Theracran) 650 Mg CAPSULE Cranberry Extract (Theracran) 650 Mg CAPSULE Yes 360 Daily@1700 [facility] Fluoxetine Hcl (Prozac) 20 Mg CAPSULE Fluoxetine Hcl (Prozac) 20 Mg CAPSULE Yes 20 Twice A Day [facility] Fluoxetine Hcl (Prozac) 20 Mg CAPSULE Fluoxetine Hcl (Prozac) 20 Mg CAPSULE Yes 20 Daily [facility] Folic Acid Folic Acid Yes 1 Daily [facility] Gabapentin (Neurontin) 300 Mg CAPSULE Gabapentin (Neurontin) 300 Mg CAPSULE Yes 1 Bedtime [facility] Gabapentin Gabapentin Yes 300 Twice A Day [facility] Levothyroxine Sodium (Levoxyl) 50 Mcg TABLET Levothyro xine Sodium (Levoxyl) 50 Mcg TABLET Yes 1 [facility] Levothyroxine Sodium Levothyroxine Sodium Yes 150 [facility] Magnesium Oxide Magnesium Oxide Yes 400 Daily [facility] Magnesium Oxide Magnesium Oxide Yes 400 Daily [facility] Methenamine Hippurate Methenamine Hippurate Yes 1 Twice A Day [facility] Metoprolol Succinate (Toprol Xl) 25 Mg TAB.ER.24H Meto prolol Succinate (Toprol Xl) 25 Mg TAB.ER.24H Yes 25 Daily [facility] Metoprolol Succinate Metoprolol Succinate Yes 100 Daily [facility] Mirtazapine Mirtazapine Yes 1 Bedtime [facility] Omeprazole (Prilosec) 20 Mg CAPSULE. Omeprazole (Prilosec) 20 Mg CAPSULE. Yes 1 Twice A Day [facility] Pantoprazole Sodium (Protonix) 40 Mg TABLET. Pantopr azole Sodium (Protonix) 40 Mg TABLET. Yes 40 [facility] Potassium Chloride Potassium Chloride Yes 10 [facility] Potassium Gluconate (Potassium) 99 Mg TABLET Potassium Gluconate (Potassium) 99 Mg TABLET Yes 1 Twice A Day [facility] Rosuvastatin Calcium (Crestor) 10 Mg TAB Rosuvastatin Calcium (Crestor) 10 Mg TAB Yes [facility] Rosuvastatin Calcium (Crestor) 10 Mg TAB Rosuvastatin Calcium (Crestor) 10 Mg TAB Yes [facility] Simvastatin Simvastatin Yes 1 Bedtime [facility] Temazepam Temazepam Yes 1 Bedtime [facility] Sulfasalazine Sulfasalazine 2013-11-25 00:00:00 No [facility] Vital Signs Vital Name Observation Time Observation Value Comments Source Body Temperature 2019-07-15 08:38:00 98.0 [degF] [facility] BMI (Body Mass Index) 2019-07-15 00:38:00 34.5 kg/m2 [facility] Weight 2019-07-13 17:56:00 220 [lb_av] [facility] Procedures Procedure Date / Time Performed Performing Clinician Sha e INSERTION OF INFUSION DEV INTO SUP VENA CAVA, PERC APPROACH 2019-02-16 00:00:00 [facility] Plan of Care Planned Activity Planned Date Details Comments Source Future Scheduled Test 2019-10-02 00:00:00 INFLUENZA VACCINE [code = INFLUENZA VACCINE] [facility] Future Scheduled Test 2013-01-09 00:00:00 65+ PNEUMOCOCCAL V ACCINE (1 of 2 - PCV13) [code = 65+ PNEUMOCOCCAL VACCINE (1 of 2 - PCV13)] [facility] Future Scheduled Test 1998-01-09 00:00:00 BREAST CANCER SCRE ENING [code = BREAST CANCER SCREENING] [facility] Future Scheduled Test 1998-01-09 00:00:00 COLONOSCOPY SCREEN ING [code = COLONOSCOPY SCREENING] [facility] Scheduled Test 1998-01-09 00:00:00 SHINGLES VACCINES (#1) [code = SHINGLES VACCINES (#1)] [facility] Instructions Rheumatoid Arthritis [facility] Instructions Hypertension [facility] Instructions Urinary Tract Infection - Women [facility] Encounters Start Date/Time End Date/Time Encounter Type Admission Type [facility] Care Department Encounter ID Source 2019-07-13 19:44:00 2019-07-15 09:26:00 Discharged Inpatient (obs) 1 [facility] [id number] [facility] 2019-02-16 09:40:00 2019-02-20 09:26:00 Discharged Inpatient 1 [facility] [id number] [facility] Results Test Description Test Time Test Comments Results Result Comments Source CHEST SINGLE (PORTABLE) 2019-09-29 18:50:00 [facility] [address] [address] Patient Name: BENITO BURNS MR #: [id number] : 1950 Age/Sex: 69/F Req #: [id number] Adm Physician: Ordered by: LEONELA GOINS MD Report #: [id number] Location: ER Room/Bed: Procedure: [id number] DX/CHEST SINGLE (PORTABLE) Exam Date: 09/29/19 Exam Time: 1800 REPORT STATUS: Signed EXAMINATION: CHEST SINGLE (PORTABLE) INDICATION: Chest pain COMPARISON: Multiple prior chest radiograph including most recent on 02/17/2019. FINDINGS: TUBES and LINES: None. LUNGS: Low lung volumes with hazy opacification of bilateral lung bases. PLEURA: No pleural effusion or pneumothorax. HEART AND MEDIASTINUM: The cardiomediastinal silhouette is unremarkable. BONES AND SOFT TISSUES: No acute osseous lesion. Soft tissues are unremarkable. UPPER ABDOMEN: No free air under the diaphragm. IMPRESSION: Low lung volumes with hazy opacification the bilateral lung bases. This likely represents atelectasis and/or pneumonia in the proper clinical setting. Signed by: Edilson Warren MD on 09/29/2019 6:52 PM Dictated By: EDILSON WARERN MD 51 Transcribed By: CATHERINE on 09/29/191851 COPY TO: LEONELA GOINS MD Serum or plasma sodium measurement (moles/volume) 2019-07-15 05:40:00 Test Item Sodium Level (test code = 2951-2) 141 136-145 [facility] potassium measurement (moles/volume)2019-07-15 05:40:00* Test Item Value Reference Range Interpretation Comments Potassium Level (test code = 2823-3) 4.0 3.5-5.1 [facility] chloride measurement (moles/volume)2019-07-15 05:40:00* Test Item Value Reference Range Interpretation Comments Chloride Level (test code = 2075-0) 106 98-107 [facility] plasma carbon dioxide, total measurement (moles/volume)2019-07-15 05:40:00* Test Item Value Reference Range Interpretation Comments Carbon Dioxide Level (test code = 2028-9) 25 22-29 [facility] or plasma anion [id number] 05:40:00* Test Item Value Reference Range Interpretation Comments Anion Gap (test code = 56105-5) 14.0 8-16 [facility] plasma urea nitrogen measurement (mass/volume)2019-07-15 05:40:00* Test Item Value Reference Range Interpretation Comments Blood Urea Nitrogen (test code = 3094-0) 20 7-26 [facility] plasma creatinine measurement (mass/volume)2019-07-15 05:40:00* Test Item Value Reference Range Interpretation Comments Creatinine (test code = 2160-0) 0.79 0.57-1.11 [facility] or plasma urea nitrogen/creatinine mass [id number] 05:40:00* Test Item Value Reference Range Interpretation Comments BUN/Creatinine Ratio (test code = 3097-3) 25 6-25 [facility] filtration rate (GFR) [id number] 05:40:00* Test Item Value Reference Range Interpretation Comments Estimat Glomerular Filtration Rate (test code = 630253732) > 60 >60 Ranges were taken from the National Kidney Disease Education Program and the [facility] Kidney Foundation literature.Reference ranges:60 or greater: Qbtepi87-29 ( for 3 consecutive months): Chronic kidney disease 15 or less: Kidney failureCHRISTUS [facility] – MarshallGlucose urkdtlxjktc0487-18-18 05:40:00* Test Item Value Reference Range Interpretation Comments Glucose Level (test code = RMC8339) 180 74-118 [facility] or plasma calcium measurement (mass/volume)2019-07-15 05:40:00* Test Item Value Reference Range Interpretation Comments Calcium Level (test code = 44174-9) 8.6 8.4-10.2 [facility] or plasma creatine kinase measurement (enzymatic activity/volume)2019-07-14 13:57:00* Test Item Value Reference Range Interpretation Comments Creatine Kinase (test code = 2157-6) 43 29-168 [facility] or plasma creatine kinase MB measurement (mass/volume)2019-07-14 13:57:00* Test Item Value Reference Range Interpretation Comments Creatine Kinase MB (test code = 49329-0) 0.90 0-5.0 [facility] measurement by highly sensitive enzyme [id number] 13:57:00* Test Item Value Reference Range Interpretation Comments Troponin I (test code = 52167-2) 0.007 0-0.300 [facility]2019-07-14 09:50:00 [facility] [address] [address] Patient Name: BENITO BURNS MR #: [id number] : 1950 Age/Sex: 69/F Req #: [id number] Adm Physician: LIBBY MARISCAL MD Ordered by: JAMES HUGHES NP Report #: [id number] Location: MED/SURG3 Room/Bed: [facility] Procedure: [id number] DX/CH EST SINGLE (PORTABLE) Exam Date: 07/13/19 Exam Time: 1822 REPORT STATUS: Signed EXAM INATION: CHEST SINGLE (PORTABLE) INDICATION: Hypotension COMPARIS ON: Chest radiograph 02/17/2019 FINDINGS: LINES/TUBES:None L UNGS:The lungs are well-inflated. No focal consolidation or pulmonary edema. PLEURA:No pleural effusion or pneumothorax. MEDIASTINUM:The heart is not enlarged. Atherosclerotic calcifications of the tortuous thoracic aorta. BONES/SOFT TISSUES:No acute osseous injury. ABDOMEN:No free air under the d iaphragm. IMPRESSION: No focal pneumonia or pulmonary edema. Sig fanta by: Marcelle Kim MD on 07/14/2019 9:51 AM Dictated By: MARCELLE KIM MD E lectronically Signed By: MARCELLE KIM MD on 07/14/19950 Transcribed By: CATHERINE on 07/14/19950 COPY TO: JAMES HUGHES NP Fluoroscopic procedure less than one hour [id number] 07:00:00* Test Item Value Reference Range Interpretation Comments Lactic Acid Level (test code = Lactic Acid Level) 1.1 0.5- 2.0 [facility] [id number] 07:00:00* Test Item Value Reference Range Interpretation Comments Free Thyroxine Index (test code = 36431-3) 3.1240 1.4-3.8 [facility] or plasma thyroxine (T4) measurement (mass/volume)2019-07-14 07:00:00* Test Item Value Reference Range Interpretation Comments Thyroxine (T4) (test code = 3026-2) 9.21 4.5-10.9 Our current method for Total T4 is not recommended for use as the only marker fo r evaluating patients for thyroid disorders.[facility] or plasma triiodothyronine resin uptake (T3RU)2019-07-14 07:00:00* Test Item Value Reference Range Interpretation Comments Triiodothyronine (T3) Uptake (test code = 3050-2) 33.92 22.5 -37.0 [facility] or plasma thyrotropin measurement by detection limit <= 0.005 miu/l (units/volume)2019-07-14 07:00:00* Test Item Value Reference Range Interpretation Comments Thyroid Stimulating Hormone (TSH) (test code = 42329-5) 0.399 0.350-4.940 [facility] leukocytes automated count (number/volume)2019-07-14 05:40:00* Test Item Value Reference Range Interpretation Comments White Blood Count (test code = 6690-2) 4.98 4.8-10.8 [facility] erythrocytes automated count (number/volume)2019-07-14 05:40:00* Test Item Value Reference Range Interpretation Comments Red Blood Count (test code = 789-8) 4.33 3.6-5.1 [facility] hemoglobin measurement (moles/volume)2019-07-14 05:40:00* Test Item Value Reference Range Interpretation Comments Hemoglobin (test code = 16025-8) 12.4 12.0-16.0 [facility] blood hematocrit (volume fraction)2019-07-14 05:40:00* Test Item Value Reference Range Interpretation Comments Hematocrit (test code = 4544-3) 38.7 34.2-44.1 [facility] erythrocyte mean corpuscular [id number] 05:40:00* Test Item Value Reference Range Interpretation Comments Mean Corpuscular Volume (test code = 787-2) 89.4 81-99 [facility] eryth[facility] mean corpuscular hemoglobin (mass per erythrocyte)2019-07-14 05:40:00* Test Item Value Reference Range Interpretation Comments Mean Corpuscular Hemoglobin (test code = 785-6) 28.6 28-32 [facility] erythrocyte mean corpuscular hemoglobin concentration measurement (mass/volume)2019-07-14 05:40:00* Test Item Value Reference Range Interpretation Comments Mean Corpuscular Hemoglobin Concent (test code = 786-4) 32.0 31-35 [facility] MarshallRDW [id number]-[id number] 05:40:00* Test Item Value Reference Range Interpretation Comments Red Cell Distribution Width (test code = 07715-8) 13.1 11.7 -14.4 [facility] platelet count (count/volume)2019-07-14 05:40:00* Test Item Value Reference Range Interpretation Comments Platelet Count (test code = 777-3) 231 140-360 [facility] segmented neutrophil count as percentage of total [id number] 05:40:00* Test Item Value Reference Range Interpretation Comments Neutrophils (%) (Auto) (test code = 64497-5) 86.8 38.7-80.0 [facility] lymphocyte count as percentage ot total gnusmgevrk9408-13-11 05:40:00* Test Item Value Reference Range Interpretation Comments Lymphocytes (%) (Auto) (test code = 736-9) 11.6 18.0-39.1 [facility] monocyte count as percentage of total agyrvawyhc1339-26-55 05:40:00* Test Item Value Reference Range Interpretation Comments Monocytes (%) (Auto) (test code = 5905-5) 0.8 4.4-11.3 [facility] MarshallAutomated blood eosinophil count as percentage of total rvtmeswbvs2687-91-81 05:40:00* Test Item Value Reference Range Interpretation Comments Eosinophils (%) (Auto) (test code = 713-8) 0.0 0.0-6.0 [facility] MarshallAutunc health appalachianed blood basophil count as percentage of total mcdhkkritt1827-60-14 05:40:00* Test Item Value Reference Range Interpretation Comments Basophils (%) (Auto) (test code = 706-2) 0.2 0.0-1.0 [facility] MarshallFluoroscopic procedure less than one hour wnjllylz5529-72-56 05:40:00* Test Item Value Reference Range Interpretation Comments IM GRANULOCYTES % (test code = IM GRANULOCYTES %) 0.6 0.0- 1.0 [facility] MarshallAutunc health app[place]ianed blood neutrophil count 2019-07-14 05:40:00* Test Item Value Reference Range Interpretation Comments Neutrophils # (Auto) (test code = 751-8) 4.3 2.1-6.9 [facility] MarshallBlood lymphocytes count (number/volume) 2019-07-14 05:40:00* Test Item Value Reference Range Interpretation Comments Lymphocytes # (Auto) (test code = 01520-7) 0.6 1.0-3.2 [facility] monocytes automated count (number/volume)2019-07-14 05:40:00* Test Item Value Reference Range Interpretation Comments Monocytes # (Auto) (test code = 742-7) 0.0 0.2-0.8 [facility] MarshallAutomated blood eosinophil count 2019-07-14 05:40:00* Test Item Value Reference Range Interpretation Comments Eosinophils # (Auto) (test code = 711-2) 0.0 0.0-0.4 [facility] MarshallAutomated blood basophil count (count/volume)2019-07-14 05:40:00* Test Item Value Reference Range Interpretation Comments Basophils # (Auto) (test code = 704-7) 0.0 0.0-0.1 [facility] MarshallFluoroscopic procedure less than one hour zsvmwgak1302-42-25 05:40:00* Test Item Value Reference Range Interpretation Comments Absolute Immature Granulocyte (auto (edgar t code = Absolute Immature Granulocyte (auto) 0.03 0-0.1 [facility] Campuserum or plasma total bilirubin measurement (mass/volume)2019-07-14 05:40:00* Test Item Value Reference Range Interpretation Comments Total Bilirubin (test code = 1975-2) 0.3 0.2-1.2 [facility] MarshallFluoroscopic procedure less than one hour ttthlrpz2541-65-92 05:40:00* Test Item Value Reference Range Interpretation Comments Aspartate Amino Transf (AST/SGOT) (test code = Aspartate Amino Transf (AST/SGOT)) 21 5-34 [facility] Campuserum or plasma alanine aminotransferase measurement (enzymatic activity/volume)2019-07-14 05:40:00* Test Item Value Reference Range Interpretation Comments Alanine Aminotransferase (ALT/SGPT) (test code = 1742-6) 18 0-55 [facility] Campuserum or plasma protein measurement (mass/volume)2019-07-14 05:40:00* Test Item Value Reference Range Interpretation Comments Total Protein (test code = 2885-2) 6.5 6.5-8.1 [facility] Campuserum or plasma albumin measurement (mass/volume)2019-07-14 05:40:00* Test Item Value Reference Range Interpretation Comments Albumin (test code = 1751-7) 3.4 3.5-5.0 [facility] MarshallPlasma globulin measurement (mass/volume) 2019-07-14 05:40:00* Test Item Value Reference Range Interpretation Comments Globulin (test code = 85393-3) 3.1 2.3-3.5 [facility] Campuserum or plasma albumin/globulin mass sihov3717-31-82 05:40:00* Test Item Value Reference Range Interpretation Comments Albumin/Globulin Ratio (test code = 1759-0) 1.1 0.8-2.0 [facility] Campuserum or plasma alkaline phosphatase measurement (enzymatic activity/volume)2019-07-14 05:40:00* Test Item Value Reference Range Interpretation Comments Alkaline Phosphatase (test code = 6768-6) 69 40-150 [facility] MarshallBlood kqhohca2090-97-95 20:15:00* Test Item Value Reference Range Interpretation Comments Blood Culture (test code = 56703308) NO GROWTH AFTER 24 HOURS [facility] MarshallProthrombin time (PT) in platelet poor plasma by coagulation hijeq1816-15-58 18:14:00* Test Item Value Reference Range Interpretation Comments Prothrombin Time (test code = 5902-2) 13.3 11.9-14.5 [facility] MarshallINR in Platelet poor plasma by Coagulation tfzoo2472-73-52 18:14:00* Test Item Value Reference Range Interpretation Comments Prothromb Time International Ratio (test code = 6301-6) 0.96 Oral Anticoagulant Therapy INR Values:1. Low Intensity Therapy 1.5 - 2.02 . Moderate Intensity Therapy 2.0 - 3.03. High Intensity Therapy(1) 2.5 - 3. 54. High Intensity Therapy(2) 3.0 - 4.05. Panic Value INR > 5.0 [facility] MarshallActivated partial thromboplastin time (aPTT) in platelet poor plasma by coagulation evqzb3958-67-23 18:14:00* Test Item Value Reference Range Interpretation Comments Activated Partial Thromboplast Time (test code = 84810-9) 32.3 23.8-35.5 [facility] Campusodium Npypg1072-11-23 06:35:00* Test Item Value Reference Range Interpretation Comments Sodium Level (test code = 2951-2) 139 136-145 [facility] MarshallPotassium Genad6891-16-41 06:35:00* Test Item Value Reference Range Interpretation Comments Potassium Level (test code = 2823-3) 3.4 3.5-5.1 L [facility] MarshallChloride Urflz2083-08-91 06:35:00* Test Item Value Reference Range Interpretation Comments Chloride Level (test code = 2075-0) 103 98-107 [facility] MarshallCarbon Dioxide Gncew6655-24-97 06:35:00* Test Item Value Reference Range Interpretation Comments Carbon Dioxide Level (test code = 2028-9) 27 22-29 [facility] MarshallAnion Rrq1301-38-59 06:35:00* Test Item Value Reference Range Interpretation Comments Anion Gap (test code = 43869-8) 12.4 8-16 [facility] MarshallBlood Urea Kzswraco1502-40-34 06:35:00* Test Item Value Reference Range Interpretation Comments Blood Urea Nitrogen (test code = 3094-0) 14 7-26 [facility] MarshallCreatinine2019-12-21 06:35:00* Test Item Value Reference Range Interpretation Comments Creatinine (test code = 2160-0) 0.82 0.57-1.11 [facility] MarshallBUN/Creatinine Jfmpe1042-06-92 06:35:00* Test Item Value Reference Range Interpretation Comments BUN/Creatinine Ratio (test code = 3097-3) 17 6- [facility] MarshallEstimat Glomerular Filtration Rate 2019-02-20 06:35:00* Test Item Value Reference Range Interpretation Comments Estimat Glomerular Filtration Rate (test code = 814997780) > 60 >60 Ranges were taken from the National Kidney Disease Education Program and the [facility] Kid[facility] Foundation literature.Reference ranges:60 or greater: Hkirfd07-56 ( for 3 consecutive months): Chronic kidney disease 15 or less: Kidney failureCHRISTUS [facility] Shepherd [facility] Center – MarshallGlucose Wyblo5783-53-40 06:35:00* Test Item Value Reference Range Interpretation Comments Glucose Level (test code = SMV6931) 160 74-118 H [facility] MarshallCalcium Sbzpj5099-57-39 06:35:00* Test Item Value Reference Range Interpretation Comments Calcium Level (test code = 05731-5) 8.9 8.4-10.2 [facility] MarshallWhite Blood Unbcu3513-36-42 06:21:00* Test Item Value Reference Range Interpretation Comments White Blood Count (test code = 6690-2) 6.14 4.8-10.8 [facility] MarshallRed Blood Cifch2742-97-97 06:21:00* Test Item Value Reference Range Interpretation Comments Red Blood Count (test code = 789-8) 4.31 3.6-5.1 [facility] MarshallHemoglobin2019-12-21 06:21:00* Test Item Value Reference Range Interpretation Comments Hemoglobin (test code = 41204-7) 12.5 12.0-16.0 [facility] MarshallHematocrit2019-12-21 06:21:00* Test Item Value Reference Range Interpretation Comments Hematocrit (test code = 4544-3) 39.3 34.2-44.1 [facility] MarshallMean Corpuscular Ejwqon5684-78-55 06:21:00* Test Item Value Reference Range Interpretation Comments Mean Corpuscular Volume (test code = 787-2) 91.2 81-99 [facility] MarshallMean Corpuscular Bjjsuiltdp9737-99-24 06:21:00* Test Item Value Reference Range Interpretation Comments Mean Corpuscular Hemoglobin (test code = 785-6) 29.0 28-32 [facility] MarshallMean Corpuscular Hemoglobin Concent 2019-02-20 06:21:00* Test Item Value Reference Range Interpretation Comments Mean Corpuscular Hemoglobin Concent (test code = 786-4) 31.8 31-35 [facility] MarshallRed Cell Distribution Gbitk6200-76-58 06:21:00* Test Item Value Reference Range Interpretation Comments Red Cell Distribution Width (test code = 24553-4) 13.1 11.7 -14.4 [facility] MarshallPlatelet Htmaq6918-10-47 06:21:00* Test Item Value Reference Range Interpretation Comments Platelet Count (test code = 777-3) 258 140-360 [facility] MarshallNeutrophils (%) (Auto)2019-02-20 06:21:00 * Test Item Value Reference Range Interpretation Comments Neutrophils (%) (Auto) (test code = 74287-2) 66.0 38.7-80.0 [facility] MarshallLymphocytes (%) (Auto)2019-02-20 06:21:00 * Test Item Value Reference Range Interpretation Comments Lymphocytes (%) (Auto) (test code = 736-9) 23.9 18.0-39.1 [facility] MarshallMonocytes (%) (Auto)2019-02-20 06:21:00* Test Item Value Reference Range Interpretation Comments Monocytes (%) (Auto) (test code = 5905-5) 7.2 4.4-11.3 [facility] MarshallEosinophils (%) (Auto)2019-02-20 06:21:00 * Test Item Value Reference Range Interpretation Comments Eosinophils (%) (Auto) (test code = 713-8) 2.1 0.0-6.0 [facility] MarshallBasophils (%) (Auto)2019-02-20 06:21:00* Test Item Value Reference Range Interpretation Comments Basophils (%) (Auto) (test code = 706-2) 0.3 0.0-1.0 [facility] MarshallIM GRANULOCYTES %2019-02-20 06:21:00* Test Item Value Reference Range Interpretation Comments IM GRANULOCYTES % (test code = IM GRANULOCYTES %) 0.5 0.0- 1.0 [facility] MarshallNeutrophils # (Auto)2019-02-20 06:21:00* Test Item Value Reference Range Interpretation Comments Neutrophils # (Auto) (test code = 751-8) 4.1 2.1-6.9 [facility] MarshallLymphocytes # (Auto)2019-02-20 06:21:00* Test Item Value Reference Range Interpretation Comments Lymphocytes # (Auto) (test code = 41573-4) 1.5 1.0-3.2 [facility] MarshallMonocytes # (Auto)2019-02-20 06:21:00* Test Item Value Reference Range Interpretation Comments Monocytes # (Auto) (test code = 742-7) 0.4 0.2-0.8 [facility] MarshallEosinophils # (Auto)2019-02-20 06:21:00* Test Item Value Reference Range Interpretation Comments Eosinophils # (Auto) (test code = 711-2) 0.1 0.0-0.4 [facility] MarshallBasophils # (Auto)2019-02-20 06:21:00* Test Item Value Reference Range Interpretation Comments Basophils # (Auto) (test code = 704-7) 0.0 0.0-0.1 [facility] MarshallAbsolute Immature Granulocyte (auto 2019-02-20 06:21:00* Test Item Value Reference Range Interpretation Comments Absolute Immature Granulocyte (auto (edgar t code = Absolute Immature Granulocyte (auto) 0.03 0-0.1 [facility] MarshallBlood Nzzexba0285-10-07 06:19:00* Test Item Value Reference Range Interpretation Comments Blood Culture (test code = 01464243) NO GROWTH AFTER 48 HOURS [facility] MarshallUrine Kriksef8206-82-58 06:29:00* Test Item Value Reference Range Interpretation Comments Urine Culture (test code = 630-4) No Result Data Provided [facility] MarshallCHEST SINGLE (PORTABLE)2019-02-17 21:17:00 [place] [address] Patient Name: BENITO BURNS MR #: [id number] : 1950 Age/Sex: 69/F Req #: [id number] Adm Physician: LIBBY MARISCAL MD Ordered by: LIBBY MARISCAL MD Report #: [id number] Location: [facility] Room/Bed: formerly [facility] Procedure: [id number] DX/CHEST SINGLE (PORTABLE) Exam Date: Exam T sonia: REPORT STATUS: Signed EXAM INATION: CHEST SINGLE (PORTABLE) INDICATION: line placement COMPARISON: 02/16/2019 FINDINGS: AP view TUBES and LINES: Right PICC in place with tip projecting over inferior SVC. LUNGS: Lungs are well inflated. Mild central vascular congestion. No definite focal conso lidation. PLEURA: No pleural effusion or pneumothorax. HEART AND MEDI ASTINUM: The cardiomediastinal silhouette is unremarkable. BONES AND S OFT TISSUES: No acute osseous lesion. Soft tissues are unremarkable. UP PER ABDOMEN: No free air under the diaphragm. IMPRESSION: No acute t horacic abnormality. Right PICC in place with tip projecting over inferior SVC . Signed by: Dr. Андрей Brooks MD on 02/17/2019 9:18 PM Dictated By : АНДРЕЙ BROOKS MD 17 Transcribed By: CATHERINE on 02/17/192117 COPY TO: LIBBY MARISCAL MD Total Ullaeicxz1219-46-90 06:31:00* Test Item Value Reference Range Interpretation Comments Total Bilirubin (test code = 1975-2) 0.2 0.2-1.2 [facility] MarshallAspartate Amino Transf (AST/SGOT) 2019-02-17 06:31:00* Test Item Value Reference Range Interpretation Comments Aspartate Amino Transf (AST/SGOT) (test code = Aspartate Amino Transf (AST/SGOT)) 13 5-34 [facility] MarshallAlanine Aminotransferase (ALT/SGPT) 2019-02-17 06:31:00* Test Item Value Reference Range Interpretation Comments Alanine Aminotransferase (ALT/SGPT) (test code = 1742-6) 16 0-55 [facility] MarshallTotal Rymfihh0092-64-21 06:31:00* Test Item Value Reference Range Interpretation Comments Total Protein (test code = 2885-2) 5.7 6.5-8.1 L [facility] MarshallAlbumin2019-12-18 06:31:00* Test Item Value Reference Range Interpretation Comments Albumin (test code = 1751-7) 3.1 3.5-5.0 L [facility] MarshallGlobulin2019-12-18 06:31:00* Test Item Value Reference Range Interpretation Comments Globulin (test code = 72411-9) 2.6 2.3-3.5 [facility] MarshallAlbumin/Globulin Ufdms4371-95-41 06:31:00 * Test Item Value Reference Range Interpretation Comments Albumin/Globulin Ratio (test code = 1759-0) 1.2 0.8-2.0 [facility] MarshallAlkaline Pntyutjxybk7524-15-06 06:31:00* Test Item Value Reference Range Interpretation Comments Alkaline Phosphatase (test code = 6768-6) 66 40-150 [facility] MarshallCHEST XRAY LINE APZYFWEAY3272-71-25 19:51:00 [facility] [address] [place] [address] Patient Name: BENITO BURNS MR #: [id number] : 1950 Age/Sex: 69/F Req #: [id number] Adm Physician: LIBBY MARISCAL MD Ordered by: YANDY NEGRO, CHLOE NEGRO Report #: [id number] Location: [place] [address] Room/Bed: formerly [facility] Procedure: [id number] DX/CHEST XRAY LINE PLACEMENT Exam Date: Time: REPORT STATUS: Signed EXAMINATION: CHEST XRAY LINE PLACEMENT INDICATION: s/p PICC line placement Y COMPARISON: None FINDINGS: TUBES and LINES: Right upper extremity PICC with distal tip projected on the SVC proxim al to the cavoatrial junction. LUNGS: Lungs are well inflated. Lungs ar e clear. There is no evidence of pneumonia or pulmonary edema. PLEURA: No pleural effusion or pneumothorax. HEART AND MEDIASTINUM: Cardiac size is mildly enlarged. There are atherosclerotic calcifications within the aorta. BONES AND SOFT TISSUES: No acute osseous lesion. Soft tissues are unre markable. UPPER ABDOMEN: No free air under the diaphragm. IMPRESSI ON: Right upper extremity PICC with distal tip projected on the SVC proximal to the cavoatrial junction. Signed by: Dr. Domonique Headley M.D. on 02/16/2019 7:52 PM Dictated By: BRIONNA HEADLEY MD, MD 51 Transcribed By: CATHERINE on 1953 COPY TO: CHLOE KEBEDE Urine Fvtaa7506-45-18 12:53:00* Test Item Value Reference Range Interpretation Comments Urine Color (test code = 5778-6) YELLOW YELLOW [facility] MarshallUrine Wxiytkq8304-44-57 12:53:00* Test Item Value Reference Range Interpretation Comments Urine Clarity (test code = 13007-0) CLEAR CLEAR [facility] MarshallUrine Specific Nipkhnv5224-55-99 12:53:00 * Test Item Value Reference Range Interpretation Comments Urine Specific [place] (test code = 5811-5) 1.020 1.010-1.02 5 [facility] MarshallUrine pC6329-45-16 12:53:00* Test Item Value Reference Range Interpretation Comments Urine pH (test code = 93428-4) 5.5 5-7 [facility] MarshallUrine Leukocyte Pzodlyqf0008-91-20 12:53:00* Test Item Value Reference Range Interpretation Comments Urine Leukocyte Esterase (test code = 5799-2) MODERATE NEGATIVE [facility] MarshallUrine Nluuykt9555-62-46 12:53:00* Test Item Value Reference Range Interpretation Comments Urine Nitrite (test code = 54282-3) NEGATIVE NEGATIVE [facility] MarshallUrine Duanulk9041-74-88 12:53:00* Test Item Value Reference Range Interpretation Comments Urine Protein (test code = 5804-0) TRACE NEGATIVE H [facility] MarshallUrine Glucose (UA)2019-02-16 12:53:00* Test Item Value Reference Range Interpretation Comments Urine Glucose (UA) (test code = 2349-9) NEGATIVE NEGATIVE [facility] MarshallUrine Cghfdoj9818-90-63 12:53:00* Test Item Value Reference Range Interpretation Comments Urine Ketones (test code = 58973-4) TRACE NEGATIVE H [facility] MarshallUrine Qijrffzzvrko0567-50-42 12:53:00* Test Item Value Reference Range Interpretation Comments Urine Urobilinogen (test code = 15008-7) 0.2 0.2-1 [facility] MarshallUrine Lknfczpzd6324-73-03 12:53:00* Test Item Value Reference Range Interpretation Comments Urine Bilirubin (test code = 1978-6) SMALL NEGATIVE [facility] MarshallUrine Htzxt3869-82-78 12:53:00* Test Item Value Reference Range Interpretation Comments Urine Blood (test code = 51692-6) TRACE NEGATIVE [facility] MarshallUrine JGU9471-51-48 12:53:00* Test Item Value Reference Range Interpretation Comments Urine WBC (test code = 5821-4) >50 0-5 H [facility] MarshallUrine TWL7157-85-88 12:53:00* Test Item Value Reference Range Interpretation Comments Urine RBC (test code = 46394-3) 0-5 0-5 [facility] MarshallUrine Mgyzdjaw5507-19-61 12:53:00* Test Item Value Reference Range Interpretation Comments Urine Bacteria (test code = 15261-6) MANY NONE H [facility] MarshallUrine Epithelial Kqgma4720-67-76 12:53:00 * Test Item Value Reference Range Interpretation Comments Urine Epithelial Cells (test code = 41647-4) MANY NONE [facility] MarshallUrine Transitional Epithelial Cells 2019-02-16 12:53:00* Test Item Value Reference Range Interpretation Comments Urine Transitional Epithelial Cells (test code = 8249-5) MANY NONE H [facility] MarshallUrine color wcjcpfesabjsn9124-92-21 09:14:00* Test Item Value Reference Range Interpretation Comments Urine Color (test code = 5778-6) YELLOW YELLOW [facility] MarshallUrine qsskana6413-17-11 09:14:00* Test Item Value Reference Range Interpretation Comments Urine Clarity (test code = 32666-2) CLEAR CLEAR [facility] Campuspecific gravity of Urine by Test strip 2019-02-16 09:14:00* Test Item Value Reference Range Interpretation Comments Urine Specific [place] (test code = 5811-5) 1.020 1.010-1.02 5 [facility] MarshallUrine pH measurement by automated test tyuzo6384-66-18 09:14:00* Test Item Value Reference Range Interpretation Comments Urine pH (test code = 88169-4) 5.5 5-7 [facility] MarshallUrine leukocyte esterase detection by hhiwywlk5324-05-75 09:14:00* Test Item Value Reference Range Interpretation Comments Urine Leukocyte Esterase (test code = 5799-2) MODERATE NEGATIVE [facility] MarshallUrine nitrite kkamxnmxo2827-12-96 09:14:00* Test Item Value Reference Range Interpretation Comments Urine Nitrite (test code = 75597-7) NEGATIVE NEGATIVE [facility] MarshallUrine protein measurement by test strip (mass/volume)2019-02-16 09:14:00* Test Item Value Reference Range Interpretation Comments Urine Protein (test code = 5804-0) TRACE NEGATIVE [facility] MarshallUrine glucose jmyoaodzx6540-14-69 09:14:00* Test Item Value Reference Range Interpretation Comments Urine Glucose (UA) (test code = 2349-9) NEGATIVE NEGATIVE [facility] MarshallUrine ketones detection by automated test rwixj1379-65-19 09:14:00* Test Item Value Reference Range Interpretation Comments Urine Ketones (test code = 74381-4) TRACE NEGATIVE [facility] MarshallUrine urobilinogen measurement by test strip (mass/volume)2019-02-16 09:14:00* Test Item Value Reference Range Interpretation Comments Urine Urobilinogen (test code = 26871-6) 0.2 0.2-1 [facility] MarshallUrine total bilirubin measurement (mass/volume)2019-02-16 09:14:00* Test Item Value Reference Range Interpretation Comments Urine Bilirubin (test code = 1978-6) SMALL NEGATIVE [facility] MarshallUrine erythrocytes hrsifqycf3671-10-77 09:14:00* Test Item Value Reference Range Interpretation Comments Urine Blood (test code = 65286-9) TRACE NEGATIVE [facility] MarshallAutomated urine sediment leukocyte count by microscopy (number/high power field)2019-02-16 09:14:00* Test Item Value Reference Range Interpretation Comments Urine WBC (test code = 5821-4) >50 0-5 [facility] MarshallErythrocytes detection in urine sediment by light ksiwfwcnsd8767-77-56 09:14:00* Test Item Value Reference Range Interpretation Comments Urine RBC (test code = 40937-7) 0-5 0-5 [facility] MarshallBacteria detection in urine sediment by light jxbukgwnyo0122-92-69 09:14:00* Test Item Value Reference Range Interpretation Comments Urine Bacteria (test code = 29835-2) MANY NONE [facility] MarshallEpithelial cells detection in urine sediment by light trdqjtrzfx8118-75-79 09:14:00* Test Item Value Reference Range Interpretation Comments Urine Epithelial Cells (test code = 48431-2) MANY NONE [facility] MarshallTransitional cells detection in urine sediment by light sibqjtehho1861-22-64 09:14:00* Test Item Value Reference Range Interpretation Comments Urine Transitional Epithelial Cells (test code = 8249-5) MANY NONE [facility] MarshallBacterial urine eylrsud3566-63-06 09:14:00* Test Item Value Reference Range Interpretation Comments Urine Culture (test code = 630-4) KLEBSIELLA PNEUMONIAE-ESBL#2 [facility] MarshallAFB CULTURE + FVVLY2225-74-51 19:43:00* Test Item Value Reference Range Interpretation Comments CULTURE (BEAKER) (test code = 1095) No acid-fast bacilli isolate d in 42 days AFB SMEAR (BEAKER) (test code = 994) No acid fast bacilli seen AFB CULTURE + [id number] 19:43:00* Test Item Value Reference Range Interpretation Comments CULTURE (BEAKER) (test code = 1095) No acid-fast bacilli isolate d in 42 days AFB SMEAR (BEAKER) (test code = 994) No acid fast bacilli seen FUNGUS CULTURE + [id number] 08:33:00* Test Item Value Reference Range Interpretation Comments CULTURE (BEAKER) (test code = 1095) No fungus isolated in 28 days FUNGUS SMEAR (BEAKER) (test code = 1406) No fungi seen FUNGUS CULTURE + [id number] 08:33:00* Test Item Value Reference Range Interpretation Comments CULTURE (BEAKER) (test code = 1095) No fungus isolated in 28 days FUNGUS SMEAR (BEAKER) (test code = 1406) No fungi seen ANAEROBIC [id number] 12:49:00* Test Item Value Reference Range Interpretation Comments CULTURE (BEAKER) (test code = 1095) No anaerobes isolated ANAEROBIC [id number] 20:13:00* Test Item Value Reference Range Interpretation Comments CULTURE (BEAKER) (test code = 1095) No anaerobes isolated SURGICALLY OBTAINED CULTURE + GRAM [id number] 09:22:00* Test Item Value Reference Range Interpretation Comments CULTURE (BEAKER) (test code = 1095) No growth GRAM STAIN RESULT (BEAKER) (test code = 1123) <1+ WBCs GRAM STAIN RESULT (BEAKER) (test code = 33350) No organisms seen SURGICALLY OBTAINED CULTURE + GRAM [id number] 09:21:00* Test Item Value Reference Range Interpretation Comments CULTURE (BEAKER) (test code = 1095) No growth GRAM STAIN RESULT (BEAKER) (test code = 1123) <1+ WBCs GRAM STAIN RESULT (BEAKER) (test code = 34462) No organisms seen TISSUE [id number] 09:04:00Surgical Pathology Report Case: [id number] Authorizing Provider: Mahamed Kinsey Collected: 09/18/2016 1813 MD Frances Ordering Location: [facility] Received: 09/19/2016 0814 SERVICES Pathologist: Richmond Avitia MD Specimen: Explant HIP, RIGHT, RIGHT HIP EXPLANT, REMOVAL: - EXPLANT MATERIAL IDENTIFIED (GROSS DIAGNOSIS) AN [facility]/[id number] of right hipExplant The specimen is received in a fluidless container labeled with the patient's information and labeled "explant" and consists of an acetabular cup and lining measuring 4 x 4 x 2 cm and acetabular cup and acetabular and femoral bulb measuring 2 x 2 x 2 cm. The serial number for the acetabular cup is "[id number]", and for the femoral bulb "[id number]". The specimen is submitted for gross identification. CG/ew SPIN/CONCENTRATION [id number] 15:47:00* Test Item Value Reference Range Interpretation Comments CONCENTRATION CHARGED (BEAKER) (test code = 2657) Done SPIN/CONCENTRATION [id number] 15:47:00* Test Item Value Reference Range Interpretation Comments CONCENTRATION CHARGED (BEAKER) (test code = 2657) Done BASIC METABOLIC [id number] 06:20:00* Test Item Value Reference Range Interpretation Comments SODIUM (BEAKER) (test code = 381) 139 meq/L 136-145 POTASSIUM (BEAKER) (test code = 379) 4.6 meq/L 3.5-5.1 CHLORIDE (BEAKER) (test code = 382) 102 meq/L 98-107 CO2 (BEAKER) (test code = 355) 31 meq/L 22-29 H BLOOD UREA NITROGEN (BEAKER) (test code = 354) 14 mg/dL 7-21 CREATININE (BEAKER) (test code = 358) 0.72 mg/dL 0.57-1.25 GLUCOSE RANDOM (BEAKER) (test code = 652) 113 mg/dL 70-105 H CALCIUM (BEAKER) (test code = 697) 8.1 mg/dL 8.4-10.2 L EGFR (BEAKER) (test code = 1092) 81 mL/min/1.73 sq m ESTIMATED GFR IS NOT ACCURATE CREATININE CLEARANCE IN PREDICTING GLOMERULAR FILTRATION RATE. ESTIMATED GFR IS NOT APPLICABLE FOR DIALYSIS PATIENTS. CBC W/PLT COUNT & AUTO [id number] 06:17:00* Test Item Value Reference Range Interpretation Comments WHITE BLOOD CELL COUNT (BEAKER) (test code = 775) 6.0 K/ L 4.0- 10.0 RED BLOOD CELL COUNT (BEAKER) (test code = 761) 3.81 M/ L 4.00-5 .00 L HEMOGLOBIN (BEAKER) (test code = 410) 8.8 GM/DL 12.0-15.0 L HEMATOCRIT (BEAKER) (test code = 411) 28.7 % 36.0-45.0 L MEAN CORPUSCULAR VOLUME (BEAKER) (test code = 753) 75.3 fL 82. 0-99.0 L MEAN CORPUSCULAR HEMOGLOBIN (BEAKER) (test code = 751) 23.1 pg 27.0-33.0 L MEAN CORPUSCULAR HEMOGLOBIN CONC (BEAKER) (test code = 752) 30.6 GM/DL 32.0-36.0 L RED CELL DISTRIBUTION WIDTH (BEAKER) (test code = 412) 18.7 % 10.3-14.2 H PLATELET COUNT (BEAKER) (test code = 756) 294 K/CU MM 150-430 MEAN PLATELET VOLUME (BEAKER) (test code = 754) 8.5 fL 6.5-10 .5 NUCLEATED RED BLOOD CELLS (BEAKER) (test code = 413) 0 /100 WBC 0 -0 NEUTROPHILS RELATIVE PERCENT (BEAKER) (test code = 429) 73 % LYMPHOCYTES RELATIVE PERCENT (BEAKER) (test code = 430) 18 % MONOCYTES RELATIVE PERCENT (BEAKER) (test code = 431) 7 % EOSINOPHILS RELATIVE PERCENT (BEAKER) (test code = 432) 2 % BASOPHILS RELATIVE PERCENT (BEAKER) (test code = 437) 0 % NEUTROPHILS ABSOLUTE COUNT (BEAKER) (test code = 670) 4.40 K/ L 1.80-8.00 LYMPHOCYTES ABSOLUTE COUNT (BEAKER) (test code = 414) 1.06 K/ L 1.48-4.50 L MONOCYTES ABSOLUTE COUNT (BEAKER) (test code = 415) 0.39 K/ L 0. 00-1.30 EOSINOPHILS ABSOLUTE COUNT (BEAKER) (test code = 416) 0.14 K/ L 0.00-0.50 BASOPHILS ABSOLUTE COUNT (BEAKER) (test code = 417) 0.03 K/ L 0. 00-0.20 0.00CBC W/PLT COUNT & AUTO [id number] 15:01:00* Test Item Value Reference Range Interpretation Comments WHITE BLOOD CELL COUNT (BEAKER) (test code = 775) 4.7 K/ L 4.0- 10.0 RED BLOOD CELL COUNT (BEAKER) (test code = 761) 3.66 M/ L 4.00-5 .00 L HEMOGLOBIN (BEAKER) (test code = 410) 8.2 GM/DL 12.0-15.0 L HEMATOCRIT (BEAKER) (test code = 411) 26.9 % 36.0-45.0 L MEAN CORPUSCULAR VOLUME (BEAKER) (test code = 753) 73.5 fL 82. 0-99.0 L MEAN CORPUSCULAR HEMOGLOBIN (BEAKER) (test code = 751) 22.4 pg 27.0-33.0 L MEAN CORPUSCULAR HEMOGLOBIN CONC (BEAKER) (test code = 752) 30.4 GM/DL 32.0-36.0 L RED CELL DISTRIBUTION WIDTH (BEAKER) (test code = 412) 17.1 % 10.3-14.2 H PLATELET COUNT (BEAKER) (test code = 756) 377 K/CU MM 150-430 MEAN PLATELET VOLUME (BEAKER) (test code = 754) 7.7 fL 6.5-10 .5 NUCLEATED RED BLOOD CELLS (BEAKER) (test code = 413) 0 /100 WBC 0 -0 NEUTROPHILS RELATIVE PERCENT (BEAKER) (test code = 429) 60 % LYMPHOCYTES RELATIVE PERCENT (BEAKER) (test code = 430) 27 % MONOCYTES RELATIVE PERCENT (BEAKER) (test code = 431) 9 % EOSINOPHILS RELATIVE PERCENT (BEAKER) (test code = 432) 3 % BASOPHILS RELATIVE PERCENT (BEAKER) (test code = 437) 1 % NEUTROPHILS ABSOLUTE COUNT (BEAKER) (test code = 670) 2.84 K/ L 1.80-8.00 LYMPHOCYTES ABSOLUTE COUNT (BEAKER) (test code = 414) 1.30 K/ L 1.48-4.50 L MONOCYTES ABSOLUTE COUNT (BEAKER) (test code = 415) 0.41 K/ L 0. 00-1.30 EOSINOPHILS ABSOLUTE COUNT (BEAKER) (test code = 416) 0.16 K/ L 0.00-0.50 BASOPHILS ABSOLUTE COUNT (BEAKER) (test code = 417) 0.04 K/ L 0. 00-0.20 0.00AFB CULTURE + [id number] 12:59:00* Test Item Value Reference Range Interpretation Comments CULTURE (BEAKER) (test code = 1095) No acid-fast bacilli isolate d in 42 days AFB SMEAR (BEAKER) (test code = 994) No acid fast bacilli seen AFB CULTURE + [id number] 12:59:00* Test Item Value Reference Range Interpretation Comments CULTURE (BEAKER) (test code = 1095) No acid-fast bacilli isolate d in 42 days AFB SMEAR (BEAKER) (test code = 994) No acid fast bacilli seen AFB CULTURE + [id number] 12:59:00* Test Item Value Reference Range Interpretation Comments CULTURE (BEAKER) (test code = 1095) No acid-fast bacilli isolate d in 42 days AFB SMEAR (BEAKER) (test code = 994) No acid fast bacilli seen FUNGUS CULTURE + [id number] 07:53:00* Test Item Value Reference Range Interpretation Comments CULTURE (BEAKER) (test code = 1095) No fungus isolated in 28 days FUNGUS SMEAR (BEAKER) (test code = 1406) No fungi seen FUNGUS CULTURE + [id number] 07:53:00* Test Item Value Reference Range Interpretation Comments CULTURE (BEAKER) (test code = 1095) No fungus isolated in 28 days FUNGUS SMEAR (BEAKER) (test code = 1406) No fungi seen FUNGUS CULTURE + [id number] 07:53:00* Test Item Value Reference Range Interpretation Comments CULTURE (BEAKER) (test code = 1095) No fungus isolated in 28 days FUNGUS SMEAR (BEAKER) (test code = 1406) No fungi seen CBC W/PLT COUNT & AUTO [id number] 14:31:00* Test Item Value Reference Range Interpretation Comments WHITE BLOOD CELL COUNT (BEAKER) (test code = 775) 6.1 K/ L 4.0- 10.0 RED BLOOD CELL COUNT (BEAKER) (test code = 761) 3.52 M/ L 4.00-5 .00 L HEMOGLOBIN (BEAKER) (test code = 410) 8.0 GM/DL 12.0-15.0 L HEMATOCRIT (BEAKER) (test code = 411) 26.6 % 36.0-45.0 L MEAN CORPUSCULAR VOLUME (BEAKER) (test code = 753) 75.5 fL 82. 0-99.0 L MEAN CORPUSCULAR HEMOGLOBIN (BEAKER) (test code = 751) 22.8 pg 27.0-33.0 L MEAN CORPUSCULAR HEMOGLOBIN CONC (BEAKER) (test code = 752) 30.2 GM/DL 32.0-36.0 L RED CELL DISTRIBUTION WIDTH (BEAKER) (test code = 412) 17.1 % 10.3-14.2 H PLATELET COUNT (BEAKER) (test code = 756) 422 K/CU MM 150-430 MEAN PLATELET VOLUME (BEAKER) (test code = 754) 7.3 fL 6.5-10 .5 NUCLEATED RED BLOOD CELLS (BEAKER) (test code = 413) 0 /100 WBC 0 -0 NEUTROPHILS RELATIVE PERCENT (BEAKER) (test code = 429) 68 % LYMPHOCYTES RELATIVE PERCENT (BEAKER) (test code = 430) 19 % MONOCYTES RELATIVE PERCENT (BEAKER) (test code = 431) 9 % EOSINOPHILS RELATIVE PERCENT (BEAKER) (test code = 432) 4 % BASOPHILS RELATIVE PERCENT (BEAKER) (test code = 437) 0 % NEUTROPHILS ABSOLUTE COUNT (BEAKER) (test code = 670) 4.12 K/ L 1.80-8.00 LYMPHOCYTES ABSOLUTE COUNT (BEAKER) (test code = 414) 1.18 K/ L 1.48-4.50 L MONOCYTES ABSOLUTE COUNT (BEAKER) (test code = 415) 0.53 K/ L 0. 00-1.30 EOSINOPHILS ABSOLUTE COUNT (BEAKER) (test code = 416) 0.25 K/ L 0.00-0.50 BASOPHILS ABSOLUTE COUNT (BEAKER) (test code = 417) 0.02 K/ L 0. 00-0.20 0.00BASIC METABOLIC [id number] 14:25:00* Test Item Value Reference Range Interpretation Comments SODIUM (BEAKER) (test code = 381) 135 meq/L 136-145 L POTASSIUM (BEAKER) (test code = 379) 4.7 meq/L 3.5-5.1 Specimen slightly hemolyzed CHLORIDE (BEAKER) (test code = 382) 99 meq/L 98-107 CO2 (BEAKER) (test code = 355) 26 meq/L 22-29 BLOOD UREA NITROGEN (BEAKER) (test code = 354) 14 mg/dL 7-21 CREATININE (BEAKER) (test code = 358) 0.76 mg/dL 0.57-1.25 Specimen slightly hemolyzed GLUCOSE RANDOM (BEAKER) (test code = 652) 98 mg/dL 70-105 CALCIUM (BEAKER) (test code = 697) 8.6 mg/dL 8.4-10.2 EGFR (BEAKER) (test code = 1092) 76 mL/min/1.73 sq m ESTIMATED GFR IS NOT ACCURATE CREATININE CLEARANCE IN PREDICTING GLOMERULAR FILTRATION RATE. ESTIMATED GFR IS NOT APPLICABLE FOR DIALYSIS PATIENTS. [id number] 14:25:00* Test Item Value Reference Range Interpretation Comments PROTIME (BEAKER) (test code = 759) 13.3 seconds 11.7-14.7 INR (BEAKER) (test code = 370) 1.0 <=5.9 PARTIAL THROMBOPLASTIN TIME (BEAKER) (test code = 760) 32.6 seconds 22.5-36.0 RECOMMENDED COUMADIN/WARFARIN INR THERAPY RANGESSTANDARD DOSE: 2.0 - 3.0 Inclu nuvia: PROPHYLAXIS for venous thrombosis, systemic embolization; TREATMENT for desean ous thrombosis and/or pulmonary embolus.HIGH RISK: Target INR is 2.5-3.5 for pat ients with mechanical heart valves.ANAEROBIC [id number] 05:50:00* Test Item Value Reference Range Interpretation Comments CULTURE (BEAKER) (test code = 1095) No anaerobes isolated ANAEROBIC [id number] 05:50:00* Test Item Value Reference Range Interpretation Comments CULTURE (BEAKER) (test code = 1095) No anaerobes isolated ANAEROBIC [id number] 05:50:00* Test Item Value Reference Range Interpretation Comments CULTURE (BEAKER) (test code = 1095) No anaerobes isolated SURGICALLY OBTAINED CULTURE + GRAM [id number] 15:21:00* Test Item Value Reference Range Interpretation Comments CULTURE (BEAKER) (test code = 1095) No growth GRAM STAIN RESULT (BEAKER) (test code = 1123) No WBCs GRAM STAIN RESULT (BEAKER) (test code = 11829) No organisms seen SURGICALLY OBTAINED CULTURE + GRAM [id number] 15:21:00* Test Item Value Reference Range Interpretation Comments CULTURE (BEAKER) (test code = 1095) No growth GRAM STAIN RESULT (BEAKER) (test code = 1123) No WBCs GRAM STAIN RESULT (BEAKER) (test code = 28840) No organisms seen BODY FLUID CULTURE + GRAM [id number] 15:20:00* Test Item Value Reference Range Interpretation Comments CULTURE (BEAKER) (test code = 1095) No growth GRAM STAIN RESULT (BEAKER) (test code = 1123) <1+ WBCs GRAM STAIN RESULT (BEAKER) (test code = 54313) No organisms seen HEMOGLOBIN AND [id number] 07:33:00* Test Item Value Reference Range Interpretation Comments HEMOGLOBIN (BEAKER) (test code = 410) 7.4 GM/DL 12.0-15.0 L HEMATOCRIT (BEAKER) (test code = 411) 24.0 % 36.0-45.0 L HGB/HCT (H&H) - STAT [id number] 11:46:00* Test Item Value Reference Range Interpretation Comments HEMOGLOBIN (BEAKER) (test code = 410) 10.2 GM/DL 12.0-15.0 L HEMATOCRIT (BEAKER) (test code = 411) 30.0 % 36.0-45.0 L [id number] 15:07:00* Test Item Value Reference Range Interpretation Comments HEMOGLOBIN (BEAKER) (test code = 410) 11.8 GM/DL 12.0-15.0 L PLATELET [id number] 15:07:00* Test Item Value Reference Range Interpretation Comments PLATELET COUNT (BEAKER) (test code = 756) 319 K/CU MM 150-430 [id number] 15:04:00* Test Item Value Reference Range Interpretation Comments SODIUM (BEAKER) (test code = 381) 137 meq/L 136-145 POTASSIUM (BEAKER) (test code = 379) 4.1 meq/L 3.5-5.1 CHLORIDE (BEAKER) (test code = 382) 100 meq/L 98-107 CO2 (BEAKER) (test code = 355) 29 meq/L 22-29 BUN AND [id number] 15:04:00* Test Item Value Reference Range Interpretation Comments BLOOD UREA NITROGEN (BEAKER) (test code = 354) 20 mg/dL 7-21 CREATININE (BEAKER) (test code = 358) 0.88 mg/dL 0.57-1.25 EGFR (BEAKER) (test code = 1092) 64 mL/min/1.73 sq m ESTIMATED GFR IS NOT ACCURATE CREATININE CLEARANCE IN PREDICTING GLOMERULAR FILTRATION RATE. ESTIMATED GFR IS NOT APPLICABLE FOR DIALYSIS PATIENTS. US SOFT TISSUE NECK/HEAD [place] [id number] Patient Name: EBNITO BURNS MR #: [id number] : 1950 Age/Sex: 67/F Req #: [id number] Adm Physician: Ordered by: HARJEET PRADO MD Report #: [id number] Location: [facility] Room/Bed: Procedure: [id number] US/US SOFT TISSUE N LINDA/HEAD Exam Date: [...]
--- OUTSIDE RECORDS SUMMARY | 2019-10-01 20:23 | XMS REPORT | Continuity of Care Document ---
Author Author [facility] t Organization [facility] Address [address] [place] [address] Phone Unavailable Care Team Providers Care Sleeve Fixer Name Role Phone EVE NEGRO, MD COSBY PCP Ching KINSEY Attphys Unavailable Katarzyna MARISCAL Attphys Unavailable HARJEET PRADO Attphys Unavailable FRANCES KINSEY Attphys Unavailable ELLIOT CHRISTENSEN Attphys Unavailable Katarzyna MARISCAL Admphys Unavailable FRANCES KINSEY Admphys Unavailable Payers Payer Name Policy Type Policy Number Effective Date Expiration Date Katarzyna jim Linda Medicare Complete NA 2019 00:00:00 [facility] Problems Condition Name Condition Details Condition Category Status Onset Date Resolution Date Last Treatment Date Treating Clinician Comments Source H/O total hip arthroplasty H/O total hip arthroplasty Disease Active 2016-09-18 00:00:00 [facility] Right hip pain Right hip pain Disease Active 2016-07-10 00:00:00 [facility] History of total right hip arthroplasty History of total rig ht hip arthroplasty Disease Active 2015-09-27 00:00:00 [facility] Dislocation of hip, right, initial encounter Dislocati on of hip, right, initial encounter Disease Active 2015-09-17 00:00:00 I [facility] Essential hypertension with goal blood pressure less t colindres 140/90 Essential hypertension with goal blood pressure less than 140/90 Disease Activ e 2015-09-17 00:00:00 [facility] Hypothyroidism Hypothyroidism Disease Active 2015-09-17 00:00:00 [facility] History of stroke - on 09/09/15 History of stroke - on 09/09/15 Disease Active 2015-09-17 00:00:00 [facility] Hypoglycemia Hypoglycemia Disease Active 2015-09-17 00:00:00 [facility] GERD (gastroesophageal reflux disease) GERD (gastroesophagea l reflux disease) Disease Active 2015-09-17 00:00:00 [facility] Anemia Anemia Disease Active 2015-09-17 00:00:00 [facility] Unsteady gait Unsteady gait Disease Active 2015-08-22 00:00:00 [facility] Opioid intoxication delirium Opioid intoxication delirium Disease Active 2015-08-22 00:00:00 [facility] Non-compliance with treatment Non-compliance with treatment Disease Active 2015-08-22 00:00:00 [facility] Infection due to extended-spectrum beta- lactamase-producing Klebsiella pneumoniae Infection due to ESBL-producing Klebsiella pneumoniae Problem Active [facility] Urinary tract infection due to extended- spectrum beta lactamase (ESBL)-producing Klebsiella Problem Active [facility] Hypotension Problem Active [facility] Allergies, Adverse Reactions, Alerts Allergy Name Allergy Type Status Severity Reaction(s) Onset Date Inacti ve Date Treating Clinician Comments Source Sulfa (Sulfonamide Antibiotics) Allergy to substance Active 2019-07-13 00:00:00 [facility] Adhesive Drug Intolerance Active Other (See Comments) 2016-08-31 3 00:00:00 Tears skin [facility] Hydromorphone Drug Intolerance Active 2016-07-10 00:00: 00 Pt gets very Confused and hallucinates. [facility] Sulfasalazine Propensity to adverse reactions Active 16-10-00 00:00:00 [facility]a (Sulfonamide Antibiotics) Propensity to adverse reactions Activ e Rash 2015-09-16 00:00:00 [facility] Sulfa (Sulfonamide Antibiotics) Propensity to adverse reactions to drug Active 2015-08-20 00:00:00 [place] [facility] Family History Family Member Diagnosis Comments Start Date Stop Date Source Natural father Heart disease Luca Paez Natural mother Heart disease Luca Paez Social History Social Habit Start Date Stop Date Quantity Comments Source History of tobacco use Cigarette smoker (laura dominguez) Luca Paez Sex Assigned At [facility] Cigarettes smoked current (pack per day) - Reported 00:00:00 2016-09-20 00:00:00 [facility] Cigarette pack-years 2016-09-20 00:00:00 2016-09-20 00:00:00 [facility] Tobacco Comment 2016-09-12 00:00:00 2016-09-12 00:00:00 quit 201 4 years ago / still does E [facility] Alcohol intake 2016-05-13 00:00:00 2016-05-13 00:00:00 Current drinker of alcohol (finding) Luca Paez Alcohol Comment 2015-08-24 00:00:00 2015-08-24 00:00:00 ocasionally Luca Paez Smoking Status Start Date Stop Date Source Former smoker 2016-09-20 00:00:00 2016-09-20 00:00:00 [facility] Current every day smoker 2016-05-13 00:00:00 Ayaan Paez Medications Ordered Medication Name Filled Medication Name Start Date Stop Da te Current Medication? Ordering Clinician Indication Dosage Frequency Signature (SIG) Comments Components Source fluconazole (DIFLUCAN) 200 MG tablet 2016-09-18 11:35:17 Ye s 200mg QD Take 200 mg by mouth daily. [facility] valsartan-hydrochlorothiazide (DIOVAN-HCT) 320-12.5 mg per t ablet 2016-09-12 13:41:41 Yes 1{tbl} QD Take 1 tablet by mouth daily. [facility] PANTOPRAZOLE SODIUM (PROTONIX ORAL) 2016-09-12 13:39:49 Yes Take by mouth. [facility] ALPRAZolam (XANAX) 0.5 MG tablet 2016-07-11 18:41:12 Yes .5mg Take 0.5 mg by mouth 3 (three) times daily as needed for Anxiety. [facility] ALBUTEROL SULFATE (PROAIR HFA INHL) 2016-07-10 08:06:27 Yes Inhale by mouth via inhaler as needed. [facility] metoprolol (TOPROL-XL) 100 MG 24 hr tablet 2016-07-10 08:05:07 Yes 100mg QD Take 100 mg by mouth daily . [facility] potassium chloride (KLOR-CON) 10 MEQ CR tablet 2016-07-10 08:05: 07 Yes 10meq Q.5D Take 10 mEq by mouth 2 (two) times daily . [facility] gabapentin (NEURONTIN) 600 MG tablet 2016-07-10 08:05:07 Ye s 600mg Q.5D Take 600 mg by mouth 2 (two) times daily . [facility] simvastatin (ZOCOR) 40 MG tablet 2016-07-10 08:05:07 Yes 40mg QD Take 40 mg by mouth nightly . [facility] levothyroxine (SYNTHROID, LEVOTHROID) 100 MCG tablet 08:05:07 Yes 100ug QD Take 100 mcg by mouth daily . [facility] cyclobenzaprine (FLEXERIL) 10 MG tablet 2016-06-26 13:47:36 Yes 10mg Take 10 mg by mouth 3 (three) times daily as needed for Muscle spasms. [facility] ALPRAZolam (XANAX) 0.5 MG tablet 2016-05-13 15:17:35 Yes .5mg Q.[id number] Take 0.5 mg by mouth 3 (three) [...] QD Take 75 mg by mouth daily. [facility] ondansetron (ZOFRAN) 4 MG tablet 2015-09-27 11:04:45 Yes 4mg Take 4 mg by mouth 2 (two) times daily as needed for Nausea. [facility] FLUoxetine (PROZAC) 10 MG tablet 2015-09-27 11:03:45 Yes 10mg QD Take 10 mg by mouth daily. [facility] magnesium oxide (MAG-OX) 400 mg tablet 2015-09-17 02:18:33 Yes 400mg Take 400 mg by mouth. [facility] folic acid (FOLVITE) 1 MG tablet 2015-09-17 02:18:33 Yes 1mg Take 1 mg by mouth. [facility] Amlodipine Besylate Amlodipine Besylate Yes 10 Bedtime [facility] Budesonide/Formoterol Fumarate (Symbicor t 160-4.5 Mcg Inhaler) 10.2 Gm HFA.AER.AD Budesonide/Formoterol Fumarate (Symbicor t 160-4.5 Mcg Inhaler) 10.2 Gm HFA.AER.AD Yes 2 Twice A Day [facility] Clopidogrel Bisulfate (Clopidogrel) 75 Mg TABLET Clopi dogrel Bisulfate (Clopidogrel) 75 Mg TABLET Yes 75 [facility] Cranberry Extract (Theracran) 650 Mg CAPSULE Cranberry Extract (Theracran) 650 Mg CAPSULE Yes 360 Daily@1700 [facility] Fluoxetine Hcl (Prozac) 20 Mg CAPSULE Fluoxetine Hcl (Prozac) 20 Mg CAPSULE Yes 20 Twice A Day [facility] Fluoxetine Hcl (Prozac) 20 Mg CAPSULE Fluoxetine Hcl (Prozac) 20 Mg CAPSULE Yes 20 Daily [facility] Folic Acid Folic Acid Yes [address] [facility] Gabapentin (Neurontin) 300 Mg CAPSULE Gabapentin (Neurontin) 300 Mg CAPSULE Yes 1 Bedtime [facility] Gabapentin Gabapentin Yes 300 Twice A Day [facility] Levothyroxine Sodium (Levoxyl) 50 Mcg TABLET Levothyro xine Sodium (Levoxyl) 50 Mcg TABLET Yes 1 [facility] Levothyroxine Sodium Levothyroxine Sodium Yes 150 [facility] Magnesium Oxide Magnesium Oxide Yes 400 Daily [facility] Magnesium Oxide Magnesium Oxide Yes 400 Daily [facility] Methenamine Hippurate Methenamine Hippurate Yes 1 Twice A Day [facility] Metoprolol Succinate (Toprol Xl) 25 Mg TAB.ER.24H Meto prolol Succinate (Toprol Xl) 25 Mg TAB.ER.24H Yes 25 Daily [facility] Metoprolol Succinate Metoprolol Succinate Yes 100 Daily [facility] Mirtazapine Mirtazapine Yes 1 Bedtime [facility] Omeprazole (Prilosec) 20 Mg CAPSULE. Omeprazole (Prilosec) 20 Mg CAPSULE. Yes 1 Twice A Day [facility] Pantoprazole Sodium (Protonix) 40 Mg TABLET. Pantopr azole Sodium (Protonix) 40 Mg TABLET. Yes 40 [facility] Potassium Chloride Potassium Chloride Yes 10 [facility] Potassium Gluconate (Potassium) 99 Mg TABLET Potassium Gluconate (Potassium) 99 Mg TABLET Yes 1 Twice A Day [facility] Rosuvastatin Calcium (Crestor) 10 Mg TAB Rosuvastatin Calcium (Crestor) 10 Mg TAB Yes [facility] Rosuvastatin Calcium (Crestor) 10 Mg TAB Rosuvastatin Calcium (Crestor) 10 Mg TAB Yes [facility] Simvastatin Simvastatin Yes 1 Bedtime [facility] Temazepam Temazepam Yes [address] [facility] [address] [facility] Sulfasalazine Sulfasalazine 2013-11-25 00:00:00 No [facility] Vital Signs Vital Name Observation Time Observation Value Comments Source Body Temperature 2019-07-15 08:38:00 98.0 [degF] [facility] BMI (Body Mass Index) 2019-07-15 00:38:00 34.5 kg/m2 [facility] Weight 2019-07-13 17:56:00 220 [lb_av] [facility] Procedures Procedure Date / Time Performed Performing Clinician Sha e INSERTION OF INFUSION DEV INTO SUP VENA CAVA, PERC APPROACH 2019-02-16 00:00:00 [facility] Plan of Care Planned Activity Planned Date Details Comments Source Future Scheduled Test 2019-10-02 00:00:00 INFLUENZA VACCINE [code = INFLUENZA VACCINE] [facility] Future Scheduled Test 2013-01-09 00:00:00 65+ PNEUMOCOCCAL V ACCINE (1 of 2 - PCV13) [code = 65+ PNEUMOCOCCAL VACCINE (1 of 2 - PCV13)] [facility] Future Scheduled Test 1998-01-09 00:00:00 BREAST CANCER SCRE ENING [code = BREAST CANCER SCREENING] [facility] Future Scheduled Test 1998-01-09 00:00:00 COLONOSCOPY SCREEN ING [code = COLONOSCOPY SCREENING] [facility] Scheduled Test 1998-01-09 00:00:00 SHINGLES VACCINES (#1) [code = SHINGLES VACCINES (#1)] [facility] Instructions Rheumatoid Arthritis [facility] Instructions Hypertension [facility] Instructions Urinary Tract Infection - Women [facility] Encounters Start Date/Time End Date/Time Encounter Type Admission Type [facility] Care Department Encounter ID Source 2019-07-13 19:44:00 2019-07-15 09:26:00 Discharged Inpatient (obs) 1 [facility] [id number] [facility] 2019-02-16 09:40:00 2019-02-20 09:26:00 Discharged Inpatient 1 [facility] [id number] [facility] Results Test Description Test Time Test Comments Results Result Comments Source CHEST SINGLE (PORTABLE) 2019-09-29 18:50:00 [facility] [address] [address] Patient Name: BENITO BURNS MR #: [id number] : 1950 Age/Sex: 69/F Req #: [id number] Adm Physician: Ordered by: LEONELA GOINS MD Report #: [id number] Location: ER Room/Bed: Procedure: [id number] DX/CHEST SINGLE (PORTABLE) Exam Date: 09/29/19 Exam [...] on 09/29/2019 6:52 PM Dictated By: EDILSON WARREN MD 49 Transcribed By: CATHERINE on 09/29/191851 COPY TO: LEONELA GOINS MD Serum or plasma sodium measurement (moles/volume) 2019-07-15 05:40:00 Test Item Sodium Level (test code = 2951-2) 141 136-145 [facility] potassium [facility] (moles/volume)2019-07-15 05:40:00* Test Item Value Reference Range Interpretation Comments Potassium Level (test code = 2823-3) 4.0 3.5-5.1 [facility] chloride measurement (moles/volume)2019-07-15 05:40:00* Test Item Value Reference Range Interpretation Comments Chloride Level (test code = 2075-0) 106 98-107 [facility] carbon dioxide, total measurement (moles/volume)2019-07-15 05:40:00* Test Item Value Reference Range Interpretation Comments Carbon Dioxide Level (test code = 2028-9) 25 22-29 [facility] anion cvr6531-01-38 05:40:00* Test Item Value Reference Range Interpretation Comments Anion Gap (test code = 52548-3) 14.0 8-16 [facility] urea nitrogen measurement (mass/volume)2019-07-15 05:40:00* Test Item Value Reference Range Interpretation Comments Blood Urea Nitrogen (test code = 3094-0) 20 7-26 [facility] creatinine measurement (mass/volume)2019-07-15 05:40:00* Test Item Value Reference Range Interpretation Comments Creatinine (test code = 2160-0) 0.79 0.57-1.11 [facility] urea nitrogen/creatinine mass uifkz2236-25-46 05:40:00* Test Item Value Reference Range Interpretation Comments BUN/Creatinine Ratio (test code = 3097-3) 25 6-25 [facility] HospitalEstimated glomerular filtration rate (GFR) acjtysoqikdsi5469-05-22 05:40:00* Test Item Value Reference Range Interpretation Comments Estimat Glomerular Filtration Rate (test code = 227968239) > 60 >60 Ranges were taken from the National Kidney Disease Education Program and the [employer] literature.Reference ranges:60 or greater: Qrleae59-91 ( for 3 consecutive months): Chronic kidney disease 15 or less: Kidney failureKell West Regional HospitalGlucose epfyuurajaa4112-35-83 05:40:00* Test Item Value Reference Range Interpretation Comments Glucose Level (test code = YFP9394) 180 74-118 [facility] plasma calcium measurement (mass/volume)2019-07-15 05:40:00* Test Item Value Reference Range Interpretation Comments Calcium Level (test code = 91767-5) 8.6 8.4-10.2 [facility] plasma creatine kinase measurement (enzymatic activity/volume)2019-07-14 13:57:00* Test Item Value Reference Range Interpretation Comments Creatine Kinase (test code = 2157-6) 43 29-168 [facility] plasma creatine kinase MB measurement (mass/volume)2019-07-14 13:57:00* Test Item Value Reference Range Interpretation Comments Creatine Kinase MB (test code = 94592-1) 0.90 0-5.0 [facility] HospitalTroponin I measurement by highly sensitive enzyme awivlsrqzwd8880-11-40 13:57:00* Test Item Value Reference Range Interpretation Comments Troponin I (test code = 92674-6) 0.007 0-0.300 [facility] HospitalCHE[facility]LE ([facility])2019-07-14 09:50:00 [facility] [address] [address] Patient Name: BENITO BURNS MR #: [id number] : 1950 Age/Sex: 69/F Req #: [id number] Adm Physician: LIBBY MARISCAL MD Ordered by: JAMES HUGHES NP Report #: [id number] Location: MED/SURG3 Room/Bed: [facility] Procedure: [id number] DX/CH EST SINGLE (PORTABLE) Exam Date: 07/13/19 [...] NP Fluoroscopic procedure less than one hour vohxqlvs9041-26-59 07:00:00* Test Item Value Reference Range Interpretation Comments Lactic Acid Level (test code = Lactic Acid Level) 1.1 0.5- 2.[address] [facility] [facility] egnew4656-20-96 07:00:00* Test Item Value Reference Range Interpretation Comments Free Thyroxine Index (test code = 95999-7) 3.1240 1.4-3.8 [facility] plasma thyroxine (T4) measurement (mass/volume)2019-07-14 07:00:00* Test Item Value Reference Range Interpretation Comments Thyroxine (T4) (test code = 3026-2) 9.21 4.5-10.9 Our current method for Total T4 is not recommended for use as the only marker fo r evaluating patients for thyroid disorders.[facility] or plasma triiodothyronine resin uptake (T3RU)2019-07-14 07:00:00* Test Item Value Reference Range Interpretation Comments Triiodothyronine (T3) Uptake (test code = 3050-2) 33.92 22.5 -37.0 [facility] plasma thyrotropin measurement by detection limit <= 0.005 miu/l (units/volume)2019-07-14 07:00:00* Test Item Value Reference Range Interpretation Comments Thyroid Stimulating Hormone (TSH) (test code = 96176-6) 0.399 0.350-4.940 [facility] HospitalBlood leukocytes automated count (number/volume)2019-07-14 05:40:00* Test Item Value Reference Range Interpretation Comments White Blood Count (test code = 6690-2) 4.98 4.8-10.8 [facility] HospitalBlood erythrocytes automated count (number/volume)2019-07-14 05:40:00* Test Item Value Reference Range Interpretation Comments Red Blood Count (test code = 789-8) 4.33 3.6-5.1 [facility] HospitalBlood hemoglobin measurement (moles/volume)2019-07-14 05:40:00* Test Item Value Reference Range Interpretation Comments Hemoglobin (test code = 63365-5) 12.4 12.0-16.0 [facility] HospitalAutomated blood hematocrit (volume fraction)2019-07-14 05:40:00* Test Item Value Reference Range Interpretation Comments Hematocrit (test code = 4544-3) 38.7 34.2-44.1 [facility] HospitalAutomated erythrocyte mean corpuscular jblkrm4168-64-25 05:40:00* Test Item Value Reference Range Interpretation Comments Mean Corpuscular Volume (test code = 787-2) 89.4 81-99 [facility] HospitalAutomated erythrocyte mean corpuscular hemoglobin (mass per erythrocyte)2019-07-14 05:40:00* Test Item Value Reference Range Interpretation Comments Mean Corpuscular Hemoglobin (test code = 785-6) 28.6 28-32 [facility] HospitalAutomated erythrocyte mean corpuscular hemoglobin concentration measurement (mass/volume)2019-07-14 05:40:00* Test Item Value Reference Range Interpretation Comments Mean Corpuscular Hemoglobin Concent (test code = 786-4) 32.0 31-35 [facility] HospitalRDW SuwIu-Xuf0060-72-13 05:40:00* Test Item Value Reference Range Interpretation Comments Red Cell Distribution Width (test code = 50489-6) 13.1 11.7 -14.4 [facility] HospitalAutomated blood platelet count (count/volume)2019-07-14 05:40:00* Test Item Value Reference Range Interpretation Comments Platelet Count (test code = 777-3) 231 140-360 [facility] neutrophil count as percentage of total npfwgckhaj3337-19-36 05:40:00* Test Item Value Reference Range Interpretation Comments Neutrophils (%) (Auto) (test code = 27490-0) 86.8 38.7-80.0 [facility] HospitalAutomated blood lymphocyte count as percentage ot total kavveawnny3197-36-47 05:40:00* Test Item Value Reference Range Interpretation Comments Lymphocytes (%) (Auto) (test code = 736-9) 11.6 18.0-39.1 [facility] monocyte count as percentage of total dmqoyrfmya1918-75-92 05:40:00* Test Item Value Reference Range Interpretation Comments Monocytes (%) (Auto) (test code = 5905-5) 0.8 4.4-11.3 [facility] HospitalAutomated blood eosinophil count as percentage of total csfkitsrtq6612-10-54 05:40:00* Test Item Value Reference Range Interpretation Comments Eosinophils (%) (Auto) (test code = 713-8) 0.0 0.0-6.0 [facility]Aut[facility] blood basophil count as percentage of total pknlvmiabo0637-92-92 05:40:00* Test Item Value Reference Range Interpretation Comments Basophils (%) (Auto) (test code = 706-2) 0.2 0.0-1.0 [facility] HospitalFluoroscopic procedure less than one hour yksvktiu2972-84-62 05:40:00* Test Item Value Reference Range Interpretation Comments IM GRANULOCYTES % (test code = IM GRANULOCYTES %) 0.6 0.0- 1.0 [facility]Aut[facility] blood neutrophil count 2019-07-14 05:40:00* Test Item Value Reference Range Interpretation Comments Neutrophils # (Auto) (test code = 751-8) 4.3 2.1-6.9 [facility] HospitalBlood lymphocytes count (number/volume) 2019-07-14 05:40:00* Test Item Value Reference Range Interpretation Comments Lymphocytes # (Auto) (test code = 31487-4) 0.6 1.0-3.2 [facility] monocytes automated count (number/volume)2019-07-14 05:40:00* Test Item Value Reference Range Interpretation Comments Monocytes # (Auto) (test code = 742-7) 0.0 0.2-0.8 [facility] HospitalAutomated blood eosinophil count 2019-07-14 05:40:00* Test Item Value Reference Range Interpretation Comments Eosinophils # (Auto) (test code = 711-2) 0.0 0.0-0.4 [facility] HospitalAutomated blood basophil count (count/volume)2019-07-14 05:40:00* Test Item Value Reference Range Interpretation Comments Basophils # (Auto) (test code = 704-7) 0.0 0.0-0.1 [facility] HospitalFluoroscopic procedure less than one hour rvrvoaxg1542-58-51 05:40:00* Test Item Value Reference Range Interpretation Comments Absolute Immature Granulocyte (auto (edgar t code = Absolute Immature Granulocyte (auto) 0.03 0-0.1 [facility] total bilirubin measurement (mass/volume)2019-07-14 05:40:00* Test Item Value Reference Range Interpretation Comments Total Bilirubin (test code = 1975-2) 0.3 0.2-1.2 [facility] HospitalFluoroscopic procedure less than one hour rwiscplu8538-42-49 05:40:00* Test Item Value Reference Range Interpretation Comments Aspartate Amino Transf (AST/SGOT) (test code = Aspartate Amino Transf (AST/SGOT)) 21 5-34 [facility] or plasma alanine aminotransferase measurement (enzymatic activity/volume)2019-07-14 05:40:00* Test Item Value Reference Range Interpretation Comments Alanine Aminotransferase (ALT/SGPT) (test code = 1742-6) 18 0-55 [facility] plasma protein measurement (mass/volume)2019-07-14 05:40:00* Test Item Value Reference Range Interpretation Comments Total Protein (test code = 2885-2) 6.5 6.5-8.1 [facility] albumin measurement (mass/volume)2019-07-14 05:40:00* Test Item Value Reference Range Interpretation Comments Albumin (test code = 1751-7) 3.4 3.5-5.0 [facility] HospitalPlasma globulin measurement (mass/volume) 2019-07-14 05:40:00* Test Item Value Reference Range Interpretation Comments Globulin (test code = 13344-0) 3.1 2.3-3.5 [facility] plasma albumin/globulin mass ofgon5593-31-52 05:40:00* Test Item Value Reference Range Interpretation Comments Albumin/Globulin Ratio (test code = 1759-0) 1.1 0.8-2.0 [facility] plasma alkaline phosphatase measurement (enzymatic activity/volume)2019-07-14 05:40:00* Test Item Value Reference Range Interpretation Comments Alkaline Phosphatase (test code = 6768-6) 69 40-150 [facility] HospitalBlood gifsnnt4973-10-62 20:15:00* Test Item Value Reference Range Interpretation Comments Blood Culture (test code = 54067890) NO GROWTH AFTER 24 HOURS [facility] HospitalProthrombin time (PT) in platelet poor plasma by coagulation buyty7119-38-36 18:14:00* Test Item Value Reference Range Interpretation Comments Prothrombin Time (test code = 5902-2) 13.3 11.9-14.5 [facility] HospitalINR in Platelet poor plasma by Coagulation qlzfe5404-81-62 18:14:00* Test Item Value Reference Range Interpretation Comments Prothromb Time International Ratio (test code = 6301-6) 0.96 Oral Anticoagulant Therapy INR Values:1. Low Intensity Therapy 1.5 - 2.02 . Moderate Intensity Therapy 2.0 - 3.03. High Intensity Therapy(1) 2.5 - 3. 54. High Intensity Therapy(2) 3.0 - 4.05. Panic Value INR > 5.0 [facility] HospitalActivated partial thromboplastin time (aPTT) in platelet poor plasma by coagulation qwcez3660-17-29 18:14:00* Test Item Value Reference Range Interpretation Comments Activated Partial Thromboplast Time (test code = 30677-1) 32.3 23.8-35.5 [facility] Uqufp9779-59-70 06:35:00* Test Item Value Reference Range Interpretation Comments Sodium Level (test code = 2951-2) 139 136-145 [facility] Yjeta6453-66-72 06:35:00* Test Item Value Reference Range Interpretation Comments Potassium Level (test code = 2823-3) 3.4 3.5-5.1 L [facility] HospitalChloride Dyezp9391-01-34 06:35:00* Test Item Value Reference Range Interpretation Comments Chloride Level (test code = 2075-0) 103 98-107 [facility] HospitalCarbon Dioxide Jgfxd1541-77-38 06:35:00* Test Item Value Reference Range Interpretation Comments Carbon Dioxide Level (test code = 2028-9) 27 22-29 [facility] HospitalAnion Hoj1384-26-43 06:35:00* Test Item Value Reference Range Interpretation Comments Anion Gap (test code = 46301-5) 12.4 8-16 [facility] HospitalBlood Urea Icnowbqx8682-26-83 06:35:00* Test Item Value Reference Range Interpretation Comments Blood Urea Nitrogen (test code = 3094-0) 14 7-26 [facility] HospitalCreatinine2019-12-21 06:35:00* Test Item Value Reference Range Interpretation Comments Creatinine (test code = 2160-0) 0.82 0.57-1.11 [facility] HospitalBUN/Creatinine Rghxk8728-49-13 06:35:00* Test Item Value Reference Range Interpretation Comments BUN/Creatinine Ratio (test code = 3097-3) 17 6- [facility] HospitalEstimat Glomerular Filtration Rate 2019-02-20 06:35:00* Test Item Value Reference Range Interpretation Comments Estimat Glomerular Filtration Rate (test code = 530452265) > 60 >60 Ranges were taken from the National Kidney Disease Education Program and the [facility] literature.Reference ranges:60 or greater: Rqsram35-17 ( for 3 consecutive months): Chronic kidney disease 15 or less: Kidney failureKell [facility] HospitalGlucose Jitrn9783-97-28 06:35:00* Test Item Value Reference Range Interpretation Comments Glucose Level (test code = XSQ5744) 160 74-118 H [facility] HospitalCalcium Kvpar6235-96-37 06:35:00* Test Item Value Reference Range Interpretation Comments Calcium Level (test code = 17010-2) 8.9 8.4-10.2 [facility] HospitalWhite Blood Mvwtf5771-58-56 06:21:00* Test Item Value Reference Range Interpretation Comments White Blood Count (test code = 6690-2) 6.14 4.8-10.8 [facility] HospitalRed Blood Ujtgt2719-88-26 06:21:00* Test Item Value Reference Range Interpretation Comments Red Blood Count (test code = 789-8) 4.31 3.6-5.1 [facility] HospitalHemoglobin2019-12-21 06:21:00* Test Item Value Reference Range Interpretation Comments Hemoglobin (test code = 11043-8) 12.5 12.0-16.0 [facility] HospitalHematocrit2019-12-21 06:21:00* Test Item Value Reference Range Interpretation Comments Hematocrit (test code = 4544-3) 39.3 34.2-44.1 [facility] HospitalMean Corpuscular Bpsdlj2164-24-14 06:21:00* Test Item Value Reference Range Interpretation Comments Mean Corpuscular Volume (test code = 787-2) 91.2 81-99 [facility] HospitalMean Corpuscular Vlevbbvzjj0182-61-94 06:21:00* Test Item Value Reference Range Interpretation Comments Mean Corpuscular Hemoglobin (test code = 785-6) 29.0 28-32 [facility] HospitalMean Corpuscular Hemoglobin Concent 2019-02-20 06:21:00* Test Item Value Reference Range Interpretation Comments Mean Corpuscular Hemoglobin Concent (test code = 786-4) 31.8 31-35 [facility] HospitalRed Cell Distribution Gyvpn8382-86-99 06:21:00* Test Item Value Reference Range Interpretation Comments Red Cell Distribution Width (test code = 13051-7) 13.1 11.7 -14.4 [facility] HospitalPlatelet Nvswn8067-48-82 06:21:00* Test Item Value Reference Range Interpretation Comments Platelet Count (test code = 777-3) 258 140-360 [facility] HospitalNeutrophils (%) (Auto)2019-02-20 06:21:00 * Test Item Value Reference Range Interpretation Comments Neutrophils (%) (Auto) (test code = 58690-2) 66.0 38.7-80.0 [facility] HospitalLymphocytes (%) (Auto)2019-02-20 06:21:00 * Test Item Value Reference Range Interpretation Comments Lymphocytes (%) (Auto) (test code = 736-9) 23.9 18.0-39.1 [facility] HospitalMonocytes (%) (Auto)2019-02-20 06:21:00* Test Item Value Reference Range Interpretation Comments Monocytes (%) (Auto) (test code = 5905-5) 7.2 4.4-11.3 [facility] HospitalEosinophils (%) (Auto)2019-02-20 06:21:00 * Test Item Value Reference Range Interpretation Comments Eosinophils (%) (Auto) (test code = 713-8) 2.1 0.0-6.0 [facility] HospitalBasophils (%) (Auto)2019-02-20 06:21:00* Test Item Value Reference Range Interpretation Comments Basophils (%) (Auto) (test code = 706-2) 0.3 0.0-1.0 [facility] HospitalIM GRANULOCYTES %2019-02-20 06:21:00* Test Item Value Reference Range Interpretation Comments IM GRANULOCYTES % (test code = IM GRANULOCYTES %) 0.5 0.0- 1.0 [facility] HospitalNeutrophils # (Auto)2019-02-20 06:21:00* Test Item Value Reference Range Interpretation Comments Neutrophils # (Auto) (test code = 751-8) 4.1 2.1-6.9 [facility] HospitalLymphocytes # (Auto)2019-02-20 06:21:00* Test Item Value Reference Range Interpretation Comments Lymphocytes # (Auto) (test code = 48154-8) 1.5 1.0-3.2 [facility] HospitalMonocytes # (Auto)2019-02-20 06:21:00* Test Item Value Reference Range Interpretation Comments Monocytes # (Auto) (test code = 742-7) 0.4 0.2-0.8 [facility] HospitalEosinophils # (Auto)2019-02-20 06:21:00* Test Item Value Reference Range Interpretation Comments Eosinophils # (Auto) (test code = 711-2) 0.1 0.0-0.4 [facility] HospitalBasophils # (Auto)2019-02-20 06:21:00* Test Item Value Reference Range Interpretation Comments Basophils # (Auto) (test code = 704-7) 0.0 0.0-0.1 [facility] HospitalAbsolute Immature Granulocyte (auto 2019-02-20 06:21:00* Test Item Value Reference Range Interpretation Comments Absolute Immature Granulocyte (auto (edgar t code = Absolute Immature Granulocyte (auto) 0.03 0-0.1 [facility] HospitalBlood Fgougpm3331-77-81 06:19:00* Test Item Value Reference Range Interpretation Comments Blood Culture (test code = 34995177) NO GROWTH AFTER 48 HOURS [facility] HospitalUrine Cziyhpy0643-24-70 06:29:00* Test Item Value Reference Range Interpretation Comments Urine Culture (test code = 630-4) No Result Data Provided [facility] HospitalCHEST SINGLE (PORTABLE)2019-02-17 21:17:00 [place] [address] Patient Name: BENITO BURNS MR #: [id number] : 1950 Age/Sex: 69/F Req #: [id number] Adm Physician: LIBBY MARISCAL MD Ordered by: LIBBY MARISCAL MD Report #: [id number] Location: [facility] Room/Bed: [facility] Procedure: [id number] DX/CHEST SINGLE (PORTABLE) Exam [...] 02/17/192117 COPY TO: LIBBY MARISCAL MD Total Eqmnydlpq7986-97-73 06:31:00* Test Item Value Reference Range Interpretation Comments Total Bilirubin (test code = 1975-2) 0.2 0.2-1.2 [facility] HospitalAspartate Amino Transf (AST/SGOT) 2019-02-17 06:31:00* Test Item Value Reference Range Interpretation Comments Aspartate Amino Transf (AST/SGOT) (test code = Aspartate Amino Transf (AST/SGOT)) 13 5-34 [facility] HospitalAlanine Aminotransferase (ALT/SGPT) 2019-02-17 06:31:00* Test Item Value Reference Range Interpretation Comments Alanine Aminotransferase (ALT/SGPT) (test code = 1742-6) 16 0-55 [facility] HospitalTotal Uomgzkk6596-97-22 06:31:00* Test Item Value Reference Range Interpretation Comments Total Protein (test code = 2885-2) 5.7 6.5-8.1 L [facility] HospitalAlbumin2019-12-18 06:31:00* Test Item Value Reference Range Interpretation Comments Albumin (test code = 1751-7) 3.1 3.5-5.0 L [facility] HospitalGlobulin2019-12-18 06:31:00* Test Item Value Reference Range Interpretation Comments Globulin (test code = 15721-9) 2.6 2.3-3.5 [facility] HospitalAlbumin/Globulin Idgxa4965-11-76 06:31:00 * Test Item Value Reference Range Interpretation Comments Albumin/Globulin Ratio (test code = 1759-0) 1.2 0.8-2.0 [facility] HospitalAlkaline Funnkpsjgko1866-58-54 06:31:00* Test Item Value Reference Range Interpretation Comments Alkaline Phosphatase (test code = 6768-6) 66 40-150 [facility] HospitalCHEST XRAY LINE RQVITZZFY0840-78-22 19:51:00 [facility] [address] [place] [address] Patient Name: BENITO BURNS MR #: [id number] : 1950 Age/Sex: 69/F Req #: [id number] Adm Physician: LIBBY MARISCAL MD Ordered by: YANDY NEGRO, CHLOE NEGRO Report #: [id number] Location: [place] [address] Room/Bed: [facility] Procedure: [id number] DX/CHEST XRAY LINE PLACEMENT Exam Date: Time: [...] on 1953 COPY TO: CHLOE KEBEDE Urine Dlxdu6359-60-57 12:53:00* Test Item Value Reference Range Interpretation Comments Urine Color (test code = 5778-6) YELLOW YELLOW [facility] HospitalUrine Snltzda8487-83-21 12:53:00* Test Item Value Reference Range Interpretation Comments Urine Clarity (test code = 91583-1) CLEAR CLEAR [facility] HospitalUrine Specific Vucexgw7913-40-88 12:53:00 * Test Item Value Reference Range Interpretation Comments Urine Specific [place] (test code = 5811-5) 1.020 1.010-1.02 5 [facility] HospitalUrine sC9435-67-96 12:53:00* Test Item Value Reference Range Interpretation Comments Urine pH (test code = 45213-6) 5.5 5-7 [facility] HospitalUrine Leukocyte Pshhfeoe1266-30-16 12:53:00* Test Item Value Reference Range Interpretation Comments Urine Leukocyte Esterase (test code = 5799-2) MODERATE NEGATIVE [facility] HospitalUrine Zlfedmq3597-54-45 12:53:00* Test Item Value Reference Range Interpretation Comments Urine Nitrite (test code = 28586-9) NEGATIVE NEGATIVE [facility] HospitalUrine Ohtzzrx5212-01-45 12:53:00* Test Item Value Reference Range Interpretation Comments Urine Protein (test code = 5804-0) TRACE NEGATIVE H [facility] HospitalUrine Glucose (UA)2019-02-16 12:53:00* Test Item Value Reference Range Interpretation Comments Urine Glucose (UA) (test code = 2349-9) NEGATIVE NEGATIVE [facility] HospitalUrine Xbsxuxs7019-51-40 12:53:00* Test Item Value Reference Range Interpretation Comments Urine Ketones (test code = 74449-8) TRACE NEGATIVE H [facility] HospitalUrine Jvhikrbjpyrm7152-57-81 12:53:00* Test Item Value Reference Range Interpretation Comments Urine Urobilinogen (test code = 20731-5) 0.2 0.2-1 [facility] HospitalUrine Paektmuhr9335-88-25 12:53:00* Test Item Value Reference Range Interpretation Comments Urine Bilirubin (test code = 1978-6) SMALL NEGATIVE [facility] HospitalUrine Bbhjp4815-53-16 12:53:00* Test Item Value Reference Range Interpretation Comments Urine Blood (test code = 39736-7) TRACE NEGATIVE [facility] HospitalUrine OVK5986-63-04 12:53:00* Test Item Value Reference Range Interpretation Comments Urine WBC (test code = 5821-4) >50 0-5 H [facility] HospitalUrine FFZ9666-69-65 12:53:00* Test Item Value Reference Range Interpretation Comments Urine RBC (test code = 39081-3) 0-5 0-5 [facility] HospitalUrine Hzzgsrkq6614-74-66 12:53:00* Test Item Value Reference Range Interpretation Comments Urine Bacteria (test code = 09410-3) MANY NONE H [facility] HospitalUrine Epithelial Lmili8995-51-35 12:53:00 * Test Item Value Reference Range Interpretation Comments Urine Epithelial Cells (test code = 25857-2) MANY NONE [facility] HospitalUrine Transitional Epithelial Cells 2019-02-16 12:53:00* Test Item Value Reference Range Interpretation Comments Urine Transitional Epithelial Cells (test code = 8249-5) MANY NONE H [facility] HospitalUrine color avefyzfalovpy6978-28-05 09:14:00* Test Item Value Reference Range Interpretation Comments Urine Color (test code = 5778-6) YELLOW YELLOW [facility] HospitalUrine bdxwwpg6691-08-95 09:14:00* Test Item Value Reference Range Interpretation Comments Urine Clarity (test code = 58586-4) CLEAR CLEAR [facility]wood[facility] gravity of Urine by Test strip 2019-02-16 09:14:00* Test Item Value Reference Range Interpretation Comments Urine Specific [place] (test code = 5811-5) 1.020 1.010-1.02 5 [facility] HospitalUrine pH measurement by automated test ypdlq0975-77-29 09:14:00* Test Item Value Reference Range Interpretation Comments Urine pH (test code = 09005-9) 5.5 5-7 [facility] HospitalUrine leukocyte esterase detection by nhfgnuxx9468-60-48 09:14:00* Test Item Value Reference Range Interpretation Comments Urine Leukocyte Esterase (test code = 5799-2) MODERATE NEGATIVE [facility] HospitalUrine nitrite ikxygvkjf3123-35-34 09:14:00* Test Item Value Reference Range Interpretation Comments Urine Nitrite (test code = 55434-6) NEGATIVE NEGATIVE [facility] HospitalUrine protein measurement by test strip (mass/volume)2019-02-16 09:14:00* Test Item Value Reference Range Interpretation Comments Urine Protein (test code = 5804-0) TRACE NEGATIVE [facility] HospitalUrine glucose azkabwqca7581-02-06 09:14:00* Test Item Value Reference Range Interpretation Comments Urine Glucose (UA) (test code = 2349-9) NEGATIVE NEGATIVE [facility] HospitalUrine ketones detection by automated test bowdd6361-18-26 09:14:00* Test Item Value Reference Range Interpretation Comments Urine Ketones (test code = 36207-9) TRACE NEGATIVE [facility] HospitalUrine urobilinogen measurement by test strip (mass/volume)2019-02-16 09:14:00* Test Item Value Reference Range Interpretation Comments Urine Urobilinogen (test code = 54084-4) 0.2 0.2-1 [facility] HospitalUrine total bilirubin measurement (mass/volume)2019-02-16 09:14:00* Test Item Value Reference Range Interpretation Comments Urine Bilirubin (test code = 1978-6) SMALL NEGATIVE [facility] HospitalUrine erythrocytes tecsoiekl9202-59-39 09:14:00* Test Item Value Reference Range Interpretation Comments Urine Blood (test code = 54428-8) TRACE NEGATIVE [facility] HospitalAutomated urine sediment leukocyte count by microscopy (number/high power field)2019-02-16 09:14:00* Test Item Value Reference Range Interpretation Comments Urine WBC (test code = 5821-4) >50 0-5 [facility] HospitalErythrocytes detection in urine sediment by light bniqbcdiwq6793-26-51 09:14:00* Test Item Value Reference Range Interpretation Comments Urine RBC (test code = 92837-4) 0-5 0-5 [facility] HospitalBacteria detection in urine sediment by light iijkvfrqdn0130-44-53 09:14:00* Test Item Value Reference Range Interpretation Comments Urine Bacteria (test code = 22452-5) MANY NONE [facility] HospitalEpithelial cells detection in urine sediment by light wsozyntfmx9506-04-36 09:14:00* Test Item Value Reference Range Interpretation Comments Urine Epithelial Cells (test code = 55478-0) MANY NONE [facility] HospitalTransitional cells detection in urine sediment by light zyshehblhm0537-61-69 09:14:00* Test Item Value Reference Range Interpretation Comments Urine Transitional Epithelial Cells (test code = 8249-5) MANY NONE [facility] HospitalBacterial urine jxgzcky4200-25-98 09:14:00* Test Item Value Reference Range Interpretation Comments Urine Culture (test code = 630-4) KLEBSIELLA PNEUMONIAE-ESBL#2 [facility] HospitalAFB CULTURE + [id number] 19:43:00* Test Item Value Reference Range Interpretation Comments CULTURE (BEAKER) (test code = 1095) No acid-fast bacilli isolate d in 42 days AFB SMEAR (BEAKER) (test code = 994) No acid fast bacilli seen AFB CULTURE + QAQZN8444-63-87 19:43:00* Test Item Value Reference Range Interpretation Comments CULTURE (BEAKER) (test code = 1095) No acid-fast bacilli isolate d in 42 days AFB SMEAR (BEAKER) (test code = 994) No acid fast bacilli seen FUNGUS CULTURE + BWITQ4060-38-12 08:33:00* Test Item Value Reference Range Interpretation Comments CULTURE (BEAKER) (test code = 1095) No fungus isolated in 28 days FUNGUS SMEAR (BEAKER) (test code = 1406) No fungi seen FUNGUS CULTURE + YDQPJ6522-14-51 08:33:00* Test Item Value Reference Range Interpretation Comments CULTURE (BEAKER) (test code = 1095) No fungus isolated in 28 days FUNGUS SMEAR (BEAKER) (test code = 1406) No fungi seen ANAEROBIC VUSPRQA3010-39-11 12:49:00* Test Item Value Reference Range Interpretation Comments CULTURE (BEAKER) (test code = 1095) No anaerobes isolated ANAEROBIC GSUWRMR2623-14-79 20:13:00* Test Item Value Reference Range Interpretation Comments CULTURE (BEAKER) (test code = 1095) No anaerobes isolated SURGICALLY OBTAINED CULTURE + GRAM IFQGF0192-59-41 09:22:00* Test Item Value Reference Range Interpretation Comments CULTURE (BEAKER) (test code = 1095) No growth GRAM STAIN RESULT (BEAKER) (test code = 1123) <1+ WBCs GRAM STAIN RESULT (BEAKER) (test code = 94721) No organisms seen SURGICALLY OBTAINED CULTURE + GRAM HBBDL9848-52-83 09:21:00* Test Item Value Reference Range Interpretation Comments CULTURE (BEAKER) (test code = 1095) No growth GRAM STAIN RESULT (BEAKER) (test code = 1123) <1+ WBCs GRAM STAIN RESULT (BEAKER) (test code = 89654) No organisms seen TISSUE OQNL6282-58-30 09:04:00Surgical Pathology Report Case: [id number] Authorizing Provider: Mahamed Kinsey Collected: 09/18/2016 1813 MD Frances Ordering Location: [facility] Received: 09/19/2016 0814 SERVICES Pathologist: Richmond Avitia MD Specimen: Explant HIP, RIGHT, RIGHT HIP EXPLANT, REMOVAL: - EXPLANT MATERIAL IDENTIFIED (GROSS DIAGNOSIS) [facility]/rx46986Amyydsnlvja of right hipExplant The specimen is received in a fluidless container labeled with the patient's information and labeled "explant" and consists of an acetabular cup and lining measuring 4 x 4 x 2 cm and acetabular cup and acetabular and femoral bulb measuring 2 x 2 x 2 cm. The serial number for the acetabular cup is "[id number]", and for the femoral bulb "[id number]". The specimen is submitted for gross identification. CG/ew SPIN/CONCENTRATION HPDWRN3164-51-37 15:47:00* Test Item Value Reference Range Interpretation Comments CONCENTRATION CHARGED (BEAKER) (test code = 2657) Done SPIN/CONCENTRATION KUHPYO5230-88-24 15:47:00* Test Item Value Reference Range Interpretation Comments CONCENTRATION CHARGED (BEAKER) (test code = 2657) Done BASIC METABOLIC TSXFQ8825-81-00 06:20:00* Test Item Value Reference Range Interpretation [...] DIALYSIS PATIENTS. CBC W/PLT COUNT & AUTO RZHPMJUKEKYH1168-71-93 06:17:00* Test Item Value Reference Range Interpretation [...] 0. 00-0.20 0.00CBC W/PLT COUNT & AUTO TDFIESGVGPDT8949-81-43 15:01:00* Test Item Value Reference Range Interpretation [...] K/ L 0. 00-0.20 0.00AFB CULTURE + [id number] 12:59:00* Test Item Value Reference Range Interpretation Comments CULTURE (BEAKER) (test code = 1095) No acid-fast bacilli isolate d in 42 days AFB SMEAR (BEAKER) (test code = 994) No acid fast bacilli seen AFB CULTURE + [id number] 12:59:00* Test Item Value Reference Range Interpretation Comments CULTURE (BEAKER) (test code = 1095) No acid-fast bacilli isolate d in 42 days AFB SMEAR (BEAKER) (test code = 994) No acid fast bacilli seen AFB CULTURE + [id number] 12:59:00* Test Item Value Reference Range Interpretation Comments CULTURE (BEAKER) (test code = 1095) No acid-fast bacilli isolate d in 42 days AFB SMEAR (BEAKER) (test code = 994) No acid fast bacilli seen FUNGUS CULTURE + [id number] 07:53:00* Test Item Value Reference Range Interpretation Comments CULTURE (BEAKER) (test code = 1095) No fungus isolated in 28 days FUNGUS SMEAR (BEAKER) (test code = 1406) No fungi seen FUNGUS CULTURE + [id number] 07:53:00* Test Item Value Reference Range Interpretation Comments CULTURE (BEAKER) (test code = 1095) No fungus isolated in 28 days FUNGUS SMEAR (BEAKER) (test code = 1406) No fungi seen FUNGUS CULTURE + [id number] 07:53:00* Test Item Value Reference Range Interpretation Comments CULTURE (BEAKER) (test code = 1095) No fungus isolated in 28 days FUNGUS SMEAR (BEAKER) (test code = 1406) No fungi seen CBC W/PLT COUNT & AUTO UHVBVRNSPQEU4272-81-75 14:31:00* Test Item Value Reference Range Interpretation [...] 0.02 K/ L 0. 00-0.20 0.00BASIC METABOLIC CPYBB2525-01-08 14:25:00* Test Item Value Reference Range Interpretation [...] GFR IS NOT APPLICABLE FOR DIALYSIS PATIENTS. PT/[id number] 14:25:00* Test Item Value Reference Range Interpretation [...] for pat ients with mechanical heart valves.ANAEROBIC AZQFAJB6972-13-18 05:50:00* Test Item Value Reference Range Interpretation Comments CULTURE (BEAKER) (test code = 1095) No anaerobes isolated ANAEROBIC TNHLHNJ1721-99-70 05:50:00* Test Item Value Reference Range Interpretation Comments CULTURE (BEAKER) (test code = 1095) No anaerobes isolated ANAEROBIC YYRIBNR1116-15-90 05:50:00* Test Item Value Reference Range Interpretation Comments CULTURE (BEAKER) (test code = 1095) No anaerobes isolated SURGICALLY OBTAINED CULTURE + GRAM [id number] 15:21:00* Test Item Value Reference Range Interpretation Comments CULTURE (BEAKER) (test code = 1095) No growth GRAM STAIN RESULT (BEAKER) (test code = 1123) No WBCs GRAM STAIN RESULT (BEAKER) (test code = 19178) No organisms seen SURGICALLY OBTAINED CULTURE + GRAM [id number] 15:21:00* Test Item Value Reference Range Interpretation Comments CULTURE (BEAKER) (test code = 1095) No growth GRAM STAIN RESULT (BEAKER) (test code = 1123) No WBCs GRAM STAIN RESULT (BEAKER) (test code = 82772) No organisms seen BODY FLUID CULTURE + GRAM [id number] 15:20:00* Test Item Value Reference Range Interpretation Comments CULTURE (BEAKER) (test code = 1095) No growth GRAM STAIN RESULT (BEAKER) (test code = 1123) <1+ WBCs GRAM STAIN RESULT (BEAKER) (test code = 90610) No organisms seen HEMOGLOBIN AND GHJBLKFEPQ4054-84-46 07:33:00* Test Item Value Reference Range Interpretation Comments HEMOGLOBIN (BEAKER) (test code = 410) 7.4 GM/DL 12.0-15.0 L HEMATOCRIT (BEAKER) (test code = 411) 24.0 % 36.0-45.0 L HGB/HCT (H&H) - STAT [id number] 11:46:00* Test Item Value Reference Range Interpretation Comments HEMOGLOBIN (BEAKER) (test code = 410) 10.2 GM/DL 12.0-15.0 L HEMATOCRIT (BEAKER) (test code = 411) 30.0 % 36.0-45.0 L [id number] 15:07:00* Test Item Value Reference Range Interpretation Comments HEMOGLOBIN (BEAKER) (test code = 410) 11.8 GM/DL 12.0-15.0 L PLATELET [id number] 15:07:00* Test Item Value Reference Range Interpretation Comments PLATELET COUNT (BEAKER) (test code = 756) 319 K/CU MM 150-430 HKSRKDYHWPKD0459-30-07 15:04:00* Test Item Value Reference Range Interpretation Comments SODIUM (BEAKER) (test code = 381) 137 meq/L 136-145 POTASSIUM (BEAKER) (test code = 379) 4.1 meq/L 3.5-5.1 CHLORIDE (BEAKER) (test code = 382) 100 meq/L 98-107 CO2 (BEAKER) (test code = 355) 29 meq/L 22-29 BUN AND KFBAVNEWYI7121-83-85 15:04:00* Test Item Value Reference Range Interpretation Comments BLOOD UREA NITROGEN (BEAKER) (test code = 354) 20 mg/dL 7-21 CREATININE (BEAKER) (test code = 358) 0.88 mg/dL 0.57-1.25 EGFR (BEAKER) (test code = 1092) 64 mL/min/1.73 sq m ESTIMATED GFR IS NOT ACCURATE CREATININE CLEARANCE IN PREDICTING GLOMERULAR FILTRATION RATE. ESTIMATED GFR IS NOT APPLICABLE FOR DIALYSIS PATIENTS. US SOFT TISSUE NECK/HEAD [place] [address] Patient Name: BENITO BURNS MR #: [id number] : 1950 Age/Sex: 67/F Req #: [id number] Adm Physician: Ordered by: HARJEET PRADO MD Report #: [id number] Location: [facility] Room/Bed: Procedure: [id number] US/US SOFT TISSUE N LINDA/HEAD Exam Date: [...]
== END 2019-10-01 16:17 | disposition home or self-care (01) ==
LOC: ER 17:21 → INTOOBSV 19:26 → ERHOLD 19:26 → MED/SURG 21:51
PROVIDERS: ADMIT Internal Medicine; ATTEND Internal Medicine
DX: N39.0 Urinary tract infection, site not specified (principal); R07.9 Chest pain, unspecified; I10 Essential (primary) hypertension; J44.9 Chronic obstructive pulmonary disease, unspecified; Z86.73 Personal history of transient ischemic attack (TIA), and cerebral infarction without residual deficits; E03.9 Hypothyroidism, unspecified; E78.5 Hyperlipidemia, unspecified; Z85.9 Personal history of malignant neoplasm, unspecified; Z87.440 Personal history of urinary (tract) infections; Z86.19 Personal history of other infectious and parasitic diseases; E66.9 Obesity, unspecified; F41.9 Anxiety disorder, unspecified; Z68.34 Body mass index [BMI] 34.0-34.9, adult; R51 Headache
CPT/HCPCS: 36415; 71045; 80053 ×2; 80061; 81001; 82550 ×2; 82553 ×2; 83880; 84484 ×2; 85025 ×2; 85610; 85730; 87040 ×2; 87086; 87186; 93005; 93306; 99284; G0378 ×3; J2270 ×3; J2405 ×2; J7050; Q0162 ×2; S0164 ×2; U0002

== ENCOUNTER → 2021-09-25 | Outpatient (CLI) | payer MEDICARE ==
[~2021-09-25] MED LIST changes: +FLUCONAZOLE100 MG PO; +NORCO 10-325 T1 EACH PO; +ONDANSETRON2 MG/1 ML IV; +PHENAZOPYRIDIN100 MG PO; +TIZANIDINE HCL4 M1; +XANAX0.5 MG PO
== END ==
LOC: RAD 11:02
PROVIDERS: ATTEND Nurse Practitioner Adult Health
DX: R60.0 Localized edema (principal)
CPT/HCPCS: 93971

== ENCOUNTER 2022-03-26 16:06 | Emergency (ER) | payer MEDICARE ==
[~2022-03-26] VITALS: Ht 170.2 cm; Wt 99.8 kg
[2022-03-26 17:01] LABS: INR 0.98; PROTHROMBIN TIME 13.2 seconds (11.9-14.5)
[2022-03-26 17:02] LABS: PARTIAL THROMBOPLASTIN TIME 35.4 seconds (23.8-35.5)
[2022-03-26 17:06] LABS: ALANINE AMINOTRANSFERASE 63 IU/L (0-55); ALBUMIN 3.9 g/dL (3.5-5.0); ALBUMIN/GLOBULIN RATIO 1.1 (0.8-2.0); ALKALINE PHOSPHATASE 86 IU/L (40-150); ANION GAP 12.8 mmol/L (8-16); BLOOD UREA NITROGEN 19 mg/dL (7-26); BUN/CREATININE RATIO 23 (6-25); CALCIUM 9.2 mg/dL (8.4-10.2); CARBON DIOXIDE 28 mmol/L (22-29); CHLORIDE 98 mmol/L (98-107); CREATINE KINASE 41 IU/L (29-168); CREATININE, SERUM 0.81 mg/dL (0.57-1.11); GLUCOSE 108 mg/dL (74-118); MAGNESIUM 1.6 MG/DL (1.3-2.1); POTASSIUM 3.8 mmol/L (3.5-5.1); RED BLOOD COUNT 4.95 x10e6/uL (3.6-5.1); SODIUM 135 mmol/L (136-145)
[2022-03-26 17:07] LABS: HEMATOCRIT 44.2 % (34.2-44.1); HEMOGLOBIN 14.9 g/dL (12.0-16.0); MEAN CORPUSCULAR HEMOGLOBIN 30.1 pg (28-32); MEAN CORPUSCULAR HGB CONC 33.7 g/dL (31-35); MEAN CORPUSCULAR VOLUME 89.3 fL (81-99); MONOCYTES % 0.6 % (4.4-11.3); PLATELET COUNT 270 x10e3/uL (140-360); RED CELL DISTRIBUTION WIDTH 12.3 % (11.7-14.4)
[2022-03-26 17:12] LABS: LYMPHOCYTES % 15.7 % (18.0-39.1); NEUTROPHILS % 76.6 % (38.7-80.0)
[2022-03-26 17:13] LABS: BASOPHILS % 0.5 % (0.0-1.0); EOSINOPHILS % 6.3 % (0.0-6.0)
[2022-03-26] MEDS ORDERED: CLINDAMYCIN PHOS 900MG/ 50ML 50 ML IV ONE (17:15)
[2022-03-26] MEDS ORDERED: CLINDAMYCIN HC150 MG PO (18:06)
[2022-03-26] MEDS ORDERED: CEPHALEXIN500 MG PO (18:06)
[2022-03-26] MEDS ORDERED: MUPIROCIN22 GM TOP (18:06)
== END 2022-03-26 18:24 | disposition home or self-care (01) ==
LOC: ER 16:39
DX: L03.113 Cellulitis of right upper limb (principal); Z20.822 Contact with and (suspected) exposure to COVID-19
CPT/HCPCS: 0223U; 36415; 71045; 73130; 80053; 82550; 82553; 83735; 84484; 85025; 85610; 85730; 87040; 99284

== ENCOUNTER 2023-04-27 07:54 | Inpatient (IN) | payer MEDICARE ==
[2023-04-27] VITALS (11 sets, daily range): BP systolic 139–186; BP diastolic 79–93; PULSE 73–82; RESP 18–21; TEMP 98.2–98.7; O2SAT 94–100
[~2023-04-27] VITALS: Ht 172.7 cm; Wt 86.2 kg
[~2023-04-27 07:54] MED LIST changes: +CEPHALEXIN500 MG PO; +CLINDAMYCIN HC150 MG PO; +CRESTOR10 MG PO; +MUPIROCIN22 GM TOP
[2023-04-27 08:28] LABS: BASOPHILS % 0.3 % (0.0-1.0); EOSINOPHILS % 0.4 % (0.0-6.0); HEMATOCRIT 47.8 % (34.2-44.1); HEMOGLOBIN 15.4 g/dL (12.0-16.0); LYMPHOCYTES # (AUTO) 0.8 (1.0-3.2); LYMPHOCYTES % 10.8 % (18.0-39.1); MEAN CORPUSCULAR HEMOGLOBIN 29.8 pg (28-32); MEAN CORPUSCULAR HGB CONC 32.2 g/dL (31-35); MEAN CORPUSCULAR VOLUME 92.6 fL (81-99); MONOCYTES # (AUTO) 0.1 (0.2-0.8); MONOCYTES % 1.5 % (4.4-11.3); NEUTROPHILS # (AUTO) 6.5 (2.1-6.9); NEUTROPHILS % 86.7 % (38.7-80.0); PLATELET COUNT 258 x10e3/uL (140-360); RED BLOOD COUNT 5.16 x10e6/uL (3.6-5.1); RED CELL DISTRIBUTION WIDTH 13.1 % (11.7-14.4); WHITE BLOOD COUNT 7.44 x10e3/uL (4.8-10.8)
[2023-04-27] MEDS: SODIUM CHLORIDE 0.9% 1000ML 1,000 ML IV STA (08:38)
[2023-04-27] MEDS ORDERED: METOPROLOL TARTRATE 50 MG TAB PO ONE (09:00)
[2023-04-27 09:10] LABS: INR 0.95; PARTIAL THROMBOPLASTIN TIME 33.4 seconds (23.8-35.5); PROTHROMBIN TIME 12.9 seconds (11.9-14.5)
[2023-04-27 09:14] LABS: BILIRUBIN,URINE NEGATIVE (NEGATIVE); CLARITY,URINE CLEAR (CLEAR); COLOR,URINE YELLOW (YELLOW); GLUCOSE, URINE NEGATIVE (NEGATIVE); KETONES,URINE NEGATIVE (NEGATIVE); LEUKOCYTE ESTERASE ,URINE TRACE (NEGATIVE); NITRITE,URINE NEGATIVE (NEGATIVE); PH,URINE 6.5 (5 - 7); PROTEIN,URINE DIPSTICK 1+ (NEGATIVE); URINE UROBILINOGEN 0.2 mg/dL (0.2 - 1)
[2023-04-27 09:17] LABS: ALBUMIN 3.9 g/dL (3.5-5.0); ALBUMIN/GLOBULIN RATIO 1.1 (0.8-2.0); ANION GAP 18.7 mmol/L (8-16); BILIRUBIN,TOTAL 0.4 mg/dL (0.2-1.2); CALCIUM 9.3 mg/dL (8.4-10.2); CREATININE, SERUM 0.88 mg/dL (0.57-1.11); MAGNESIUM 1.8 MG/DL (1.3-2.1); POTASSIUM 4.7 mmol/L (3.5-5.1); TOTAL PROTEIN 7.3 g/dL (6.5-8.1)
[2023-04-27 09:24] LABS: TROPONIN I 0.007 ng/mL (0-0.300)
[2023-04-27 09:27] LABS: BACTERIA,URINE MANY /HPF; RBC,URINE 0-5 /HPF (0-5)
[2023-04-27 09:28] LABS: EPITHELIAL CELLS,URINE FEW /LPF
[2023-04-27] MEDS: VALSARTAN 160 MG TAB PO ONE (09:39)
[2023-04-27] MEDS: Doxycycline IV 100 MG in SODIUM CHLORIDE 0.9% 100 ML IV SCH (10:00)
[2023-04-27] MEDS: HYDRALAZINE HCL 20 MG/ML VIAL IV PRN (10:53)
[2023-04-27] MEDS: Morphine 2mg Syringe 2 MG/ML SYR IV PRN (13:41)
[2023-04-27] MEDS: SODIUM CHLORIDE 0.9% 1000ML 1,000 ML IV SCH (14:53)
[2023-04-27] MEDS ORDERED: POTASSIUM CHLO10 ME1 PO (15:15)
[2023-04-27] MEDS ORDERED: MYRBETRIQ50 MG PO (15:15)
[2023-04-27] MEDS ORDERED: ESTRADIOL1 MG PO (15:15)
[2023-04-27] MEDS ORDERED: VALSARTAN-HCTZ1 EAC1 (15:15)
[2023-04-27] MEDS ORDERED: FOSFOMYCIN TROME3 GM PO (15:17)
[2023-04-27] MEDS: ALBUTEROL/IPRATROPIUM 3 ML NEB NEB PRN (16:45)
[2023-04-27] MEDS: HYDROCODONE/APAP 10MG-325MG TAB PO PRN (18:27)
[2023-04-27] MEDS: METOPROLOL SUCCINATE 50 MG TAB XL PO SCH (18:29)
[2023-04-27] MEDS: ALBUTEROL/IPRATROPIUM 3 ML NEB NEB SCH (19:13)
[2023-04-27] MEDS: FAMOTIDINE 20 MG/2 ML VIAL IV SCH (20:58)
[2023-04-27] MEDS: FLUOXETINE HCL 20 MG CAP PO SCH (20:59)
[2023-04-28] VITALS (10 sets, daily range): BP systolic 135–187; BP diastolic 77–101; PULSE 66–85; RESP 17–20; TEMP 97.6–98.1; O2SAT 96–100
[2023-04-28] MEDS: ALPRAZOLAM 0.5 MG TAB PO PRN (00:38)
[2023-04-28 01:19] LABS: TROPONIN I 0.007 ng/mL (0-0.300)
[2023-04-28 05:37] LABS: BASOPHILS % 0.4 % (0.0-1.0); EOSINOPHILS # (AUTO) 0.1 (0.0-0.4); EOSINOPHILS % 1.6 % (0.0-6.0); HEMOGLOBIN 13.1 g/dL (12.0-16.0); LYMPHOCYTES # (AUTO) 2.1 (1.0-3.2); LYMPHOCYTES % 30.4 % (18.0-39.1); MEAN CORPUSCULAR HEMOGLOBIN 29.2 pg (28-32); MEAN CORPUSCULAR HGB CONC 31.2 g/dL (31-35); MEAN CORPUSCULAR VOLUME 93.8 fL (81-99); MONOCYTES # (AUTO) 0.6 (0.2-0.8); MONOCYTES % 8.6 % (4.4-11.3); NEUTROPHILS % 58.7 % (38.7-80.0); PLATELET COUNT 235 x10e3/uL (140-360); RED BLOOD COUNT 4.48 x10e6/uL (3.6-5.1); RED CELL DISTRIBUTION WIDTH 13.1 % (11.7-14.4); WHITE BLOOD COUNT 6.84 x10e3/uL (4.8-10.8)
[2023-04-28 06:01] LABS: ALBUMIN 3.3 g/dL (3.5-5.0); ALBUMIN/GLOBULIN RATIO 1.3 (0.8-2.0); ANION GAP 12.4 mmol/L (8-16); BILIRUBIN,TOTAL 0.3 mg/dL (0.2-1.2); CALCIUM 8.1 mg/dL (8.4-10.2); CREATININE, SERUM 0.76 mg/dL (0.57-1.11); TOTAL PROTEIN 5.8 g/dL (6.5-8.1)
[2023-04-28 06:02] LABS: POTASSIUM 3.4 mmol/L (3.5-5.1)
[2023-04-28 06:31] LABS: TROPONIN I 0.008 ng/mL (0-0.300)
[2023-04-28] MEDS: BUDESONIDE/FORMOTEROL 160/4.5MCG INHALER INH SCH (08:22)
[2023-04-28] MEDS ORDERED: FLUOXETINE HCL 20 MG CAP PO SCH (09:00)
[2023-04-28] MEDS ORDERED: METOPROLOL SUCCINATE 50 MG TAB XL PO SCH (09:00)
[2023-04-28] MEDS ORDERED: GABAPENTIN 300 MG CAP PO SCH (09:00)
[2023-04-28] MEDS ORDERED: NON-FORMULARY MEDICATION (Methenamine Hippurate 1 G) PO SCH (09:00)
[2023-04-28] MEDS: VALSARTAN 80 MG TAB PO SCH (09:17)
[2023-04-28] MEDS: SIMVASTATIN 40 MG TAB PO SCH (09:18)
[2023-04-28] MEDS: OMEPRAZOLE 20 MG CAP PO SCH (09:18)
[2023-04-28] MEDS: HYDROCHLOROTHIAZIDE 25 MG TAB PO SCH (09:18)
[2023-04-28] MEDS: CLOPIDOGREL BISULFATE 75 MG TAB PO SCH (09:18)
[2023-04-28] MEDS: AMLODIPINE BESYLATE 10 MG TAB PO SCH (09:19)
[2023-04-28] MEDS: CLONIDINE HCL 0.1 MG TAB PO PRN (10:42)
[2023-04-28] MEDS ORDERED: RISPERIDONE 0.5 MG TAB PO ONE (17:30)
[2023-04-28] MEDS ORDERED: RISPERIDONE 0.5 MG TAB PO PRN (17:30)
[2023-04-28] MEDS: ONDANSETRON HCL INJ 2MG/ML 2ML 2 MG/ML VIAL IV PRN (17:48)
[2023-04-29] VITALS (12 sets, daily range): BP systolic 129–183; BP diastolic 80–98; PULSE 64–83; RESP 18–20; TEMP 97.7–98.8; O2SAT 90–98
[2023-04-29] MEDS: HYDRALAZINE HCL 25 MG TAB PO SCH (09:00)
[2023-04-30] VITALS (10 sets, daily range): BP systolic 104–141; BP diastolic 62–87; PULSE 50–83; RESP 18–20; TEMP 97.8–98.7; O2SAT 90–97
[2023-04-30] MEDS: HYDROCODONE/APAP 10MG-325MG TAB PO PRN (13:07)
[2023-04-30] MEDS ORDERED: DOXYCYCLINE HYCLATE TABLET 100 MG TAB PO SCH (21:00)
== END 2023-04-30 16:10 | disposition home or self-care (01) | DRG 190 ==
LOC: ER 07:59 → ERHOLD 10:08 → MED/SURG2 11:59
PROVIDERS: ADMIT Family Medicine; ATTEND Family Medicine
DX: J44.1 Chronic obstructive pulmonary disease with (acute) exacerbation (principal); G92.9 Unspecified toxic encephalopathy; N39.0 Urinary tract infection, site not specified; F17.210 Nicotine dependence, cigarettes, uncomplicated; R51.9 Headache, unspecified; E03.9 Hypothyroidism, unspecified; F17.290 Nicotine dependence, other tobacco product, uncomplicated; M06.9 Rheumatoid arthritis, unspecified; Z11.52 Encounter for screening for COVID-19; Z87.440 Personal history of urinary (tract) infections; Z79.02 Long term (current) use of antithrombotics/antiplatelets; Z79.899 Other long term (current) drug therapy
CPT/HCPCS: 36415; 70450; 70551; 71045; 80053; 81001; 82550; 82948; 83735; 84484; 85025; 85610; 85730; 87040; 87086; 87400; 87420; 93005; 94664; 94799; 99284; J0360; J2270; J2405; J2543; J7030; J7050; U0002

== ENCOUNTER → 2024-01-06 | Outpatient (REF) | payer MEDICARE ==
[~2024-01-06] MED LIST changes: +ESTRADIOL1 MG PO; +FOSFOMYCIN TROME3 GM PO; +IOPAMIDOL 370 MG/ML 100 ML INFUS..BTL INJ ONE; +MYRBETRIQ50 MG PO; +SODIUM CHLORIDE 0.9% 100 ML ONE; +VALSARTAN-HCTZ1 EAC1
[2024-01-06 15:00] LABS: CREATININE, SERUM 0.82 mg/dL (0.57-1.11)
== END ==
LOC: CT 13:57
PROVIDERS: ATTEND Family Medicine
DX: I71.21 Aneurysm of the ascending aorta, without rupture (principal)
CPT/HCPCS: 36415; 71275; 82565; 84520; J7050; Q9967

== ENCOUNTER 2024-05-30 13:54 | Emergency (ER) | payer MEDICARE ==
[~2024-05-30] VITALS: Ht 167.6 cm; Wt 75.7 kg
[~2024-05-30 13:54] MED LIST changes: -IOPAMIDOL 370 MG/ML 100 ML INFUS..BTL INJ ONE; -SODIUM CHLORIDE 0.9% 100 ML ONE
[2024-05-30 14:00] VITALS: RESP 18; TEMP 98.1
[2024-05-30 14:44] VITALS: PULSE 86; O2SAT 95
== END 2024-05-30 15:33 | disposition home or self-care (01) ==
LOC: ER 14:07
DX: S51.811D Laceration without foreign body of right forearm, subsequent encounter (principal); W18.39XD Other fall on same level, subsequent encounter; I10 Essential (primary) hypertension; J44.9 Chronic obstructive pulmonary disease, unspecified; E03.9 Hypothyroidism, unspecified; E78.5 Hyperlipidemia, unspecified; M06.9 Rheumatoid arthritis, unspecified; F41.9 Anxiety disorder, unspecified; Z85.42 Personal history of malignant neoplasm of other parts of uterus; Z86.73 Personal history of transient ischemic attack (TIA), and cerebral infarction without residual deficits
CPT/HCPCS: 99282

== ENCOUNTER 2024-09-19 13:06 | Inpatient (IN) | payer MEDICARE ==
[~2024-09-19] VITALS: Ht 170.2 cm; Wt 70.3 kg
[2024-09-19 09:00] VITALS: BP 127/81; PULSE 72; RESP 18; TEMP 97.6; O2SAT 99
[2024-09-19 14:35] LABS: BASOPHILS % 0.3 % (0.0-1.0); EOSINOPHILS % 1.4 % (0.0-6.0); LYMPHOCYTES % 16.4 % (18.0-39.1); MONOCYTES % 7.5 % (4.4-11.3); NEUTROPHILS % 74.1 % (38.7-80.0); RED CELL DISTRIBUTION WIDTH 12.9 % (11.7-14.4)
[2024-09-19] MEDS: Vancomycin IV 1 GM in SODIUM CHLORIDE 0.9% 250ML 250 ML IV SCH (14:41)
[2024-09-19 14:49] LABS: INR 0.93
[2024-09-19 14:56] LABS: EST GLOMERULAR FILTRATION RATE 74.0 ML/MIN (>=60)
[2024-09-19] MEDS ORDERED: SODIUM CHLORIDE FLUSH 10 ML SYR INJ PRN (15:15)
[2024-09-19 15:17] VITALS: PULSE 72; RESP 16; TEMP 97.8
[2024-09-19] MEDS: SODIUM CHLORIDE 0.9% 1000ML 1,000 ML IV SCH (15:45)
[2024-09-19] MEDS: Morphine 2mg Syringe 2 MG/ML SYR IV PRN (15:46)
[2024-09-19] MEDS: ONDANSETRON HCL INJ 2MG/ML 2ML 2 MG/ML VIAL IV PRN (15:46)
[2024-09-19 16:50] VITALS: BP 158/90; PULSE 69; RESP 18; TEMP 97.6; O2SAT 98
[2024-09-19] MEDS: POTASSIUM CHLORIDE 10MEQ EA PO SCH (17:00)
[2024-09-19] MEDS: GABAPENTIN 300 MG CAP PO SCH (17:00)
[2024-09-19] MEDS: FLUOXETINE HCL 20 MG CAP PO SCH (17:00)
[2024-09-19] MEDS: METOPROLOL SUCCINATE 50 MG TAB XL PO SCH (17:00)
[2024-09-19] MEDS ORDERED: PHENAZOPYRIDINE HCL 100 MG TAB PO PRN (17:00)
[2024-09-19 17:10] VITALS: BP 158/90; PULSE 69; RESP 18; TEMP 97.9; O2SAT 98
[2024-09-19] MEDS: PROMETHAZINE HCL 25 MG TAB PO PRN (18:51)
[2024-09-19] MEDS: BUDESONIDE/FORMOTEROL 160/4.5MCG INHALER INH SCH (19:00)
[2024-09-19 20:00] VITALS: BP 128/94; PULSE 73; RESP 18; TEMP 98; O2SAT 96
[2024-09-19 20:11] VITALS: BP 127/81; PULSE 72; RESP 18; TEMP 97.6; O2SAT 99
[2024-09-19] MEDS: Clindamycin INJ 300 MG/50 ML 50 ML IV SCH (23:04)
[2024-09-19] MEDS: ALPRAZOLAM 0.5 MG TAB PO PRN (23:40)
[2024-09-20] VITALS (8 sets, daily range): BP systolic 128–182; BP diastolic 77–96; PULSE 70–81; RESP 17–20; TEMP 97.5–98.2; O2SAT 94–100
[2024-09-20] MEDS: LEVOTHYROXINE SODIUM 100 MCG TAB PO SCH (05:33)
[2024-09-20 06:04] LABS: BASOPHILS % 0.3 % (0.0-1.0); EOSINOPHILS % 2.2 % (0.0-6.0); LYMPHOCYTES % 19.5 % (18.0-39.1); MONOCYTES % 8.0 % (4.4-11.3); NEUTROPHILS % 69.7 % (38.7-80.0); RED CELL DISTRIBUTION WIDTH 12.7 % (11.7-14.4)
[2024-09-20 06:35] LABS: EST GLOMERULAR FILTRATION RATE 90.0 ML/MIN (>=60)
[2024-09-20] MEDS: OMEPRAZOLE 20 MG CAP PO SCH (07:30)
[2024-09-20] MEDS: VALSARTAN 160 MG TAB PO SCH (09:00)
[2024-09-20] MEDS: CLOPIDOGREL BISULFATE 75 MG TAB PO SCH (09:00)
[2024-09-20] MEDS: FOLIC ACID 1 MG TAB PO SCH (09:00)
[2024-09-20] MEDS: MAGNESIUM OXIDE 400 MG TAB PO SCH (09:00)
[2024-09-20] MEDS: HYDROCHLOROTHIAZIDE 25 MG TAB PO SCH (09:00)
[2024-09-20] MEDS: ESTRADIOL 1 MG TAB PO SCH (09:00)
[2024-09-20] MEDS ORDERED: FENTANYL CITRATE/PF 100MCG/2 ML INJ ONE (10:01)
[2024-09-20] MEDS ORDERED: PROPOFOL IV EMULSION 10 MG/ML 20 ML VIAL ONE (10:01)
[2024-09-20] MEDS ORDERED: LIDOCAINE HCL 2% LOCAL INJ 5 ML SDV VIAL INJ ONE (10:01)
[2024-09-20] MEDS ORDERED: MIDAZOLAM HCL 2 MG/2 ML VIAL ONE (10:01)
[2024-09-20] MEDS ORDERED: SUCCINYLCHOLINE CHLORIDE 20 MG/ML 10ML VIAL ONE (10:13)
[2024-09-20] MEDS ORDERED: ACETAMINOPHEN 1000 MG/100 ML 100 ML IV ONE (10:32)
[2024-09-21 00:04] VITALS: BP 128/77; PULSE 81; RESP 18; TEMP 97.8; O2SAT 99
[2024-09-21] MEDS: HYDROCODONE/APAP 10MG-325MG TAB PO PRN (00:27)
[2024-09-21 05:27] VITALS: BP 148/84; PULSE 67; RESP 20; TEMP 96.7; O2SAT 97
[2024-09-21 05:51] LABS: BASOPHILS % 0.2 % (0.0-1.0); EOSINOPHILS % 0.0 % (0.0-6.0); LYMPHOCYTES % 8.8 % (18.0-39.1); MONOCYTES % 6.8 % (4.4-11.3); NEUTROPHILS % 83.7 % (38.7-80.0); RED CELL DISTRIBUTION WIDTH 12.4 % (11.7-14.4)
[2024-09-21 06:38] LABS: EST GLOMERULAR FILTRATION RATE 91.0 ML/MIN (>=60)
[2024-09-21 08:18] VITALS: BP 155/92; PULSE 80; RESP 19; TEMP 97.9; O2SAT 95
[2024-09-21 08:51] VITALS: BP 155/92; PULSE 80; RESP 19; TEMP 97.9; O2SAT 95
[2024-09-21 11:47] VITALS: BP 144/82; PULSE 71; RESP 19; TEMP 98.2; O2SAT 99
== END 2024-09-21 12:21 | disposition home or self-care (01) | DRG 572 ==
LOC: ER 13:59 → ERHOLD 15:03 → MED/SURG2 16:20 → OBSVTOIN 09-20 16:46
PROVIDERS: ADMIT Family Medicine; ATTEND Family Medicine
PROC: 0JB70ZZ Excision of Back Subcutaneous Tissue and Fascia, Open Approach (ICD-10-PCS; principal; 2024-09-20 10:11)
DX: L02.212 Cutaneous abscess of back [any part, except buttock and flank] (principal); L03.312 Cellulitis of back [any part except buttock and flank]; L72.3 Sebaceous cyst; J44.9 Chronic obstructive pulmonary disease, unspecified; E78.5 Hyperlipidemia, unspecified; E03.9 Hypothyroidism, unspecified; I10 Essential (primary) hypertension; Z79.02 Long term (current) use of antithrombotics/antiplatelets; Z79.51 Long term (current) use of inhaled steroids; Z79.890 Hormone replacement therapy; Z90.710 Acquired absence of both cervix and uterus; Z86.73 Personal history of transient ischemic attack (TIA), and cerebral infarction without residual deficits; Z98.1 Arthrodesis status; Z88.2 Allergy status to sulfonamides
CPT/HCPCS: 36415; 80048; 80053; 85025; 85610; 85730; 88304; 99284; G0378; J0330; J0696; J2003; J2250; J2270; J2405; J3373; J7030; J7050

== ENCOUNTER → 2024-10-19 | Outpatient (REF) | payer MEDICARE | LOC: MRI 12:39 | PROVIDERS: ATTEND Family Medicine | DX: M54.2 Cervicalgia (principal); M54.16 Radiculopathy, lumbar region | CPT/HCPCS: 72141; 72148 ==